=== PATIENT | female | born 1990 | race Caucasian/White ===

== ENCOUNTER 2017-10-26 17:30 | Emergency (ER) | payer MEDICAID, SELFPAY ==
[2017-10-26 17:32] VITALS: BP 113/64; PULSE 103; RESP 18; TEMP 37.1; O2SAT 98; BMI 22.3
--- NOTE | 2017-10-26 18:24 | ED.VISSUMM ---
- ER Visit Summary Date of Service: 10/26/17 Chief Complaint: Abdominal pain and fever History of Present Illness: The patient is a 26 F who is 4 days status post laparoscopic bilateral salpingectomy who presents for fever and abdominal pain since yesterday. Patient states she has had diffuse abdominal pain, worse in the suprapubic and left lower quadrant. She has had fever up to 101, chills and sweats, blurred vision, and decreased urine output. She denies any vaginal discharge. She has not had a bowel movement since her surgery. She states she is taking Motrin for pain and fever. She has history of asthma but denies any other medical problems. She denies any recent . Patient uses tobacco. Physical Examination: Vital signs: afebrile, hemodynamically stable, no hypoxia on room air General: well nourished, well developed, in no distress Skin: warm, dry, no rash, no pallor HEENT: normocephalic and atraumatic; PERRL, EOMI, moist mucous membranes Cardiovascular: Tachycardic rate 103 and rhythm without murmurs, no peripheral edema, 2+ pulses all distal extremities Respiratory: No increased work of breathing, lungs are clear to auscultation bilaterally, no rales, rhonchi or wheezing Abdominal: Abdomen is soft, mildly distended, diffuse tenderness to light palpation with hypo-active bowel sounds, no guarding or rebound, no masses, surgical incisions in place with Steri-Strips, no exudate, induration or dehiscence MSK: Moves all extremities, no deformities, normal strength Neuro: Awake and alert, oriented ?4. No facial droop, sensation and motor function intact and symmetric Test Results: Abnormal Lab Results 10/26/17 10/26/17 10/26/17 18:36 18:36 19:25 WBC 6.8 RBC 4.49 Hgb 11.6 L Hct 36.7 L MCV 81.7 MCH 25.8 L MCHC 31.6 L RDW 15.7 H RDW Differential 46.8 H Plt Count 258 MPV 9.8 Immature Gran % (Auto) 0.000 Neut % (Auto) 54.4 Lymph % (Auto) 30.6 Bureau % (Auto) 6.7 Eos % (Auto) 7.9 H Baso % (Auto) 0.4 Absolute Neuts (auto) 3.7 Absolute Lymphs (auto) 2.09 Total Counted Not Reportable Sodium 141 Potassium 3.9 Chloride 105 Carbon Dioxide 28.0 Anion Gap 8 BUN 6 L Creatinine 0.60 Estim Creat Clear Calc 120.54 Est GFR (MDRD) Af Amer 152 Est GFR (MDRD) Non-Af 126 BUN/Creatinine Ratio 10.0 Glucose 83 Calcium 8.6 Total Bilirubin 0.20 AST 15 ALT 26 Alkaline Phosphatase 66 Total Protein 6.9 Albumin 3.6 Globulin 3.3 Albumin/Globulin Ratio 1.1 Lipase 116 Urine Color Yellow Urine Clarity Sl. Cloudy Urine pH 8.0 Ur Specific Walker 1.010 Urine Protein Negative Urine Glucose (UA) Normal Urine Ketones Negative Urine Occult Blood Negative Urine Nitrite Negative Urine Bilirubin Negative Urine Urobilinogen Normal Ur Leukocyte Esterase Negative Urine RBC 0 SEEN Urine WBC 0-5 SEEN Ur Squamous Epith Cells 0-5 SEEN Urine Bacteria RARE Urine Mucus 0 SEEN Emergency Department Course and Treatment: Patient presents with symptoms consistent with a viral syndrome but 4 days after bilateral salpingectomy. Workup was performed for both infectious etiology as well as postsurgical complications. Patient had no leukocytosis. No electrolyte derangements. Urine was negative for infection. Flu was negative. CT of the abdomen and pelvis was performed showing severe constipation. There were normal postsurgical changes with no free air or signs of abscess. Patient was discussed with Dr. Reynolds, who felt that patient's workup was appropriate for being 4 days postop. There were no further concerns related to the surgery. Patient was given a prescription for MiraLAX for her severe constipation. She was also given Zofran for nausea. Because of the finding of severe constipation, patient was instructed that opiates would not be an appropriate pain medication as this will just make the constipation worse, and it may be the source of her abdominal pain today. Patient will continue [id number] pain medications as needed. She was discharged home and is to follow-up with Dr. Swift for regular postop care. Treatment Plan: [] Disposition: [] Impression: Severe constipation, postoperative abdominal pain This note was generated with [employer] dictation software. It may contain incorrect words, spelling, and punctuation that were not noted in review of the chart prior to signing ED Disposition - Plan for ED Patient: Disposition: Home or Assisted Living Chief Complaint: General Illness Instructions: ED Constipation Prescriptions: Ondansetron [Zofran Odt] 4 mg PO Q8H PRN PRN #15 tab PRN Reason: Nausea Polyethylene Glycol 3350 [Miralax] 17 gm PO BID #238 gm Referrals: Ron Cosme MD [STAFF PHYSICIAN] - Digna Estrada MD [Primary Care Provider] - Additional Instructions: Your workup shows severe constipation. Please drink plenty of fluids. You may use the MiraLAX as prescribed to help with constipation. You may use Zofran for nausea. Opiate pain medications will make constipation worse, thus those cannot be prescribed at this time for your postoperative pain. You may continue to use [id number] pain medications as needed for pain. If you have any concerns or worsening of your condition, please come back to the emergency department for another evaluation.
--- NOTE | 2017-10-26 18:27 | ED.DCSUM_ITS ---
- ER Visit Summary Date of Service: 10/26/17 Chief Complaint: Abdominal pain and fever History of Present Illness: The patient is a 26 F who is 4 days status post laparoscopic bilateral salpingectomy who presents for fever and abdominal pain since yesterday. Patient states she has had diffuse abdominal pain, worse in the suprapubic and left lower quadrant. She has had fever up to 101, chills and sweats, blurred vision, and decreased urine output. She denies any vaginal discharge. She has not had a bowel movement since her surgery. She states she is taking Motrin for pain and fever. She has history of asthma but denies any other medical problems. She denies any recent . Patient uses tobacco. Physical Examination: Vital signs: afebrile, hemodynamically stable, no hypoxia on room air General: well nourished, well developed, in no distress Skin: warm, dry, no rash, no pallor HEENT: normocephalic and atraumatic; PERRL, EOMI, moist mucous membranes Cardiovascular: Tachycardic rate 103 and rhythm without murmurs, no peripheral edema, 2+ pulses all distal extremities Respiratory: No increased work of breathing, lungs are clear to auscultation bilaterally, no rales, rhonchi or wheezing Abdominal: Abdomen is soft, mildly distended, diffuse tenderness to light palpation with hypo-active bowel sounds, no guarding or rebound, no masses, surgical incisions in place with Steri-Strips, no exudate, induration or dehiscence MSK: Moves all extremities, no deformities, normal strength Neuro: Awake and alert, oriented ?4. No facial droop, sensation and motor function intact and symmetric Test Results: Abnormal Lab Results 10/26/17 10/26/17 10/26/17 18:36 18:36 19:25 WBC 6.8 RBC 4.49 Hgb 11.6 L Hct 36.7 L MCV 81.7 MCH 25.8 L MCHC 31.6 L RDW 15.7 H RDW Differential 46.8 H Plt Count 258 MPV 9.8 Immature Gran % (Auto) 0.000 Neut % (Auto) 54.4 Lymph % (Auto) 30.6 [place] % (Auto) 6.7 Eos % (Auto) 7.9 H Baso % (Auto) 0.4 Absolute Neuts (auto) 3.7 Absolute Lymphs (auto) 2.09 Total Counted Not Reportable Sodium 141 Potassium 3.9 Chloride 105 Carbon Dioxide 28.0 Anion Gap 8 BUN 6 L Creatinine 0.60 Estim Creat Clear Calc 120.54 Est GFR (MDRD) Af Amer 152 Est GFR (MDRD) Non-Af 126 BUN/Creatinine Ratio 10.0 Glucose 83 Calcium 8.6 Total Bilirubin 0.20 AST 15 ALT 26 Alkaline Phosphatase 66 Total Protein 6.9 Albumin 3.6 Globulin 3.3 Albumin/Globulin Ratio 1.1 Lipase 116 Urine Color Yellow Urine Clarity Sl. Cloudy Urine pH 8.0 Ur Specific [place] 1.010 Urine Protein Negative Urine Glucose (UA) Normal Urine Ketones Negative Urine Occult Blood Negative Urine Nitrite Negative Urine Bilirubin Negative Urine Urobilinogen Normal Ur Leukocyte Esterase Negative Urine RBC 0 SEEN Urine WBC 0-5 SEEN Ur Squamous Epith Cells 0-5 SEEN Urine Bacteria RARE Urine Mucus 0 SEEN Emergency Department Course and Treatment: Patient presents with symptoms consistent with a viral syndrome but 4 days after bilateral salpingectomy. Workup was performed for both infectious etiology as well as postsurgical complications. Patient had no leukocytosis. No electrolyte derangements. Urine was negative for infection. Flu was negative. CT of the abdomen and pelvis was performed showing severe constipation. There were normal postsurgical changes with no free air or signs of abscess. Patient was discussed with Dr. Reynolds, who felt that patient's workup was appropriate for being 4 days postop. There were no further concerns related to the surgery. Patient was given a prescription for MiraLAX for her severe constipation. She was also given Zofran for nausea. Because of the finding of severe constipation , patient was instructed that opiates would not be an appropriate pain medication as this will just make the constipation worse, and it may be the source of her abdominal pain today. Patient will continue [id number] pain medications as needed. She was discharged home and is to follow-up with Dr. Swift for regular postop care. Treatment Plan: [] Disposition: [] Impression: Severe constipation, postoperative abdominal pain This note was generated with [employer] dictation software. It may contain incorrect words, spelling, and punctuation that were not noted in review of the chart prior to signing ED Disposition - Plan for ED Patient: Disposition: Home or Assisted Living Chief Complaint: General Illness Instructions: ED Constipation Prescriptions: Ondansetron [Zofran Odt] 4 mg PO Q8H PRN PRN #15 tab PRN Reason: Nausea Polyethylene Glycol 3350 [Miralax] 17 gm PO BID #238 gm Referrals: Ron Cosme MD [STAFF PHYSICIAN] - Digna Estrada MD [Primary Care Provider] - Additional Instructions: Your workup shows severe constipation. Please drink plenty of fluids. You may use the MiraLAX as prescribed to help with constipation. You may use Zofran for nausea. Opiate pain medications will make constipation worse, thus those cannot be prescribed at this time for your postoperative pain. You may continue to use zxbu-yqn-[id number] pain medications as needed for pain. If you have any concerns or worsening of your condition, please come back to the emergency department for another evaluation.
[2017-10-26] MEDS: Ondansetron 4 MG/2 ML Vial IV (18:38)
[2017-10-26] MEDS: 0.9% Normal Saline 1,000 ML 1000 ML IV (18:39)
[2017-10-26 18:45] LABS: Absolute Lymphocyte Count 2.09 X10^3/ul (0.83-4.51); Absolute Neutrophil Count 3.7 X10^3/uL (2.0-7.7); Basophil# 0.03 X10^3/uL; Basophil% 0.4 % (0-1); Eosinophil# 0.54 X10^3/uL; Eosinophils% 7.9 % (0-5); Hematocrit 36.7 % (37-47); Hemoglobin 11.6 g/dl (12.0-15.0); Lymphocyte # 2.09 X10^3/ul (4.0); Lymphocyte % 30.6 % (19-41); Mean Corp Hgb Conc 31.6 g/gl (32-36); Mean Corpuscular Hgb 25.8 pg (27.0-32.0); Mean Corpuscular Volume 81.7 fL (81-99); Mean Platelet Vol. 9.8 fl (6.2-12.0); Monocyte# 0.46 X10^3/uL; Monocyte% 6.7 % (0-10); Neutrophil # 3.71 X10^3/uL (2.7-7.7); Neutrophil % 54.4 % (47-70); POSITIVE COUNT NO; POSITIVE DIFFERENTIAL NO; POSITIVE MORPHOLOGY NO; Platelet Count 258 K/mm3 (150-450); RBC Distribution Width CV 15.7 % (11.6-14.6); RBC Distribution Width SD 46.8 fl (35.1-43.9); Red Blood Count 4.49 M/mm3 (4.2-5.4); White Blood Count 6.8 K/mm3 (4.4-11.0)
[2017-10-26 19:02] LABS: ALB/GLOB Ratio 1.1 RATIO (0.9-2.4); AST(SGOT) 15 U/L (15-37); Alanine Aminotransfer ALT/SGPT 26 U/L (12-78); Albumin, Serum 3.6 g/dL (3.4-5.0); Alkaline Phosphatase 66 U/L (45-117); Anion Gap 8 (5-15); BUN 6 mg/dL (7-18); Calcium,Total 8.6 mg/dL (8.5-10.1); Chloride 105 mmol/L (98-107); EST Glomerular Filtration Rate 126 mL/min (>60); Est Glom Filt Rate - Afr Amer 152 mL/min (>60); Estimated Creatinine Clearance 120.54 ml/min; Globulin 3.3 g/dL (2.2-4.2); Glucose 83 mg/dL (70-110); Lipase 116 U/L (73-393); Potassium 3.9 mmol/L (3.5-5.1); Protein, Total 6.9 g/dL (6.4-8.2); Sodium Level 141 mmol/L (136-145)
[2017-10-26 19:33] LABS: Mucous, Urine 0 SEEN /hpf (<or=2+); Red Blood Cells-Urine 0 SEEN /hpf (0-5)
[2017-10-26 19:34] LABS: Color, Urine Yellow (Yellow); Glucose, Dipstick Normal (Normal); Ketone-Dipstick Negative (Negative); Leukocyte Esterase-Dipstick Negative /ul (Negative); Nitrite-Dipstick Negative (Negative); Occult Blood-Urine Negative /ul (Negative); Protein-Dipstick Negative (Negative); Urine Bilirubin Dipstick Negative (Negative); Urine Clarity Sl. Cloudy (Clear); Urine Urobilinogen Normal (Normal)
[2017-10-26 19:41] LABS: Bacteria RARE /hpf (None Seen); Squamous Epithelial Cells - UA 0-5 SEEN /hpf (5-10); White Blood Cells 0-5 SEEN /hpf (0-5)
[2017-10-26 19:58] VITALS: BP 121/71; PULSE 64; RESP 16; O2SAT 99
--- NOTE | 2017-10-26 20:36 | CT_ITS ---
STUDY: CT ABDOMEN AND PELVIS WITH CONTRAST REASON FOR EXAM: Female, 26 years old. Postop fever and pain. RADIATION DOSAGE (If Supplied By Facility): CTDIvol = ( 12.12 ) mGy, DLP = ( 361.43 ) mGycm TECHNIQUE: Transaxial images were obtained from the dome of the diaphragm to the symphysis pubis without oral contrast. 100ML ml of Isovue 300 contrast was administered. Sagittal and coronal images were reconstructed. Individualized dose optimization techniques were used for this CT. COMPARISON: None. FINDINGS: The visualized lung bases are clear. The visualized portions of the heart and pericardium are within normal limits. There are no calcified gallstones present. The liver is within normal limits. There are no suspicious hepatic lesions. The spleen is normal in size. The pancreas is within normal limits. The adrenal glands are within normal limits. There are no obstructing renal stones. There is no hydronephrosis. There are no focal renal lesions. Normal visualized stomach. There is no bowel obstruction or inflammation. There is a large amount of stool in the colon, consistent with constipation. The patient is status post appendectomy. The aorta is normal in caliber. There are bilateral adnexal cysts. There is a small amount of pelvic free fluid. There is no free air, fluid collection or lymphadenopathy. There are no destructive osseous lesions. There is subcutaneous stranding with small foci of free air in the lower anterior abdominal wall, consistent with the patient's recent postoperative state. CT/Abdomen/Pelvis W IV Cont ONLY IMPRESSION: Subcutaneous stranding and small foci of free air in the lower anterior abdominal wall, consistent with the patient's recent postoperative state. Small amount of pelvic free fluid. No fluid collection. Bilateral adnexal cysts, likely physiologic. No bowel obstruction or inflammation. Constipation. Electronically Signed: Zach Villegas, at 21:40 EST Tel , Service support ,
[2017-10-26 22:18] VITALS: BP 107/65; PULSE 60; RESP 16; O2SAT 97
--- NOTE | 2017-10-26 22:32 | ED.DEP ---
ED Disposition - Plan for ED Patient: Disposition: Home or Assisted Living Chief Complaint: General Illness Instructions: ED Constipation Prescriptions: Ondansetron [Zofran Odt] 4 mg PO Q8H PRN PRN #15 tab PRN Reason: Nausea Polyethylene Glycol 3350 [Miralax] 17 gm PO BID #238 gm Referrals: Digna Estrada MD [Primary Care Provider] - Ron Cosme MD [STAFF PHYSICIAN] - Additional Instructions: Your workup shows severe constipation. Please drink plenty of fluids. You may use the MiraLAX as prescribed to help with constipation. You may use Zofran for nausea. Opiate pain medications will make constipation worse, thus those cannot be prescribed at this time for your postoperative pain. You may continue to use pegw-zzp-esngenr pain medications as needed for pain. If you have any concerns or worsening of your condition, please come back to the emergency department for another evaluation.
--- NOTE | 2017-10-26 22:36 | DCINST.ED_ITS ---
ED Disposition - Plan for ED Patient: Disposition: Home or Assisted Living Chief Complaint: General Illness Instructions: ED Constipation Prescriptions: Ondansetron [Zofran Odt] 4 mg PO Q8H PRN PRN #15 tab PRN Reason: Nausea Polyethylene Glycol 3350 [Miralax] 17 gm PO BID #238 gm Referrals: Digna Estrada MD [Primary Care Provider] - Ron Cosme MD [STAFF PHYSICIAN] - Additional Instructions: Your workup shows severe constipation. Please drink plenty of fluids. You may use the MiraLAX as prescribed to help with constipation. You may use Zofran for nausea. Opiate pain medications will make constipation worse, thus those cannot be prescribed at this time for your postoperative pain. You may continue to use tcce-qqy-tqjrpuq pain medications as needed for pain. If you have any concerns or worsening of your condition, please come back to the emergency department for another evaluation.
[2017-10-26 22:46] VITALS: BP 107/65; PULSE 60; RESP 16; O2SAT 97
== END 2017-10-26 22:48 | disposition home or self-care (01) ==
PROVIDERS: Emergency Provider Emergency Medicine; Family Provider Internal Medicine; PCP Internal Medicine
DX: K59.00 Constipation, unspecified (principal); R10.9 Unspecified abdominal pain; Z90.722 Acquired absence of ovaries, bilateral; R50.9 Fever, unspecified; H53.8 Other visual disturbances; R39.198 Other difficulties with micturition; R11.10 Vomiting, unspecified; R00.0 Tachycardia, unspecified; J45.909 Unspecified asthma, uncomplicated; Z72.0 Tobacco use
CPT/HCPCS: 74176; 80053; 81001; 83690; 85025; 87040; 87077; 87086; 87088; 87186; 87804; 96361; 96374; 96375; 96376; 99283; J7030; Q9967; A4216; J2405

== ENCOUNTER → 2017-11-05 17:21 | Outpatient (CLI) | payer MEDICAID, SELFPAY ==
[2017-11-05 20:32] LABS: Chlamydia Trachomatis by PCR Negative (Negative); Neisserai gonorrhoeae by PCR Positive (Negative); Probe Check PASS
== END ==
PROVIDERS: Visit Provider Obstetrics & Gynecology
DX: Z11.3 Encounter for screening for infections with a predominantly sexual mode of transmission (principal)
CPT/HCPCS: 87491; 87591

== ENCOUNTER 2018-01-26 18:43 | Emergency (ER) | payer MEDICAID, SELFPAY ==
[2018-01-26 18:44] VITALS: BP 107/70; PULSE 88; RESP 16; TEMP 36.8; O2SAT 99; BMI 22.5
[2018-01-26] MEDS: Ketorolac 30 MG/ML Syringe IV (19:21)
[2018-01-26] MEDS: diazePAM 5 MG Tablet PO (19:22)
--- NOTE | 2018-01-26 20:23 | ED.VISSUMM ---
- ER Visit Summary Date of Service: 01/26/18 Chief Complaint: Neck pain and headache History of Present Illness: The patient is a 27 F who presents with atraumatic neck pain and occipital headache that started 4-5 days ago. She is reluctant to move her head. He states movement of her head causes her pain. She is sitting very still. She denies any paresthesia, anesthesia motors. She denies any cardiac or respiratory symptoms. She denies nausea or vomiting. She has no other complaints please read written note. Review of old records reveal patient has history of recurrent neck and back pain. Furthermore there is a comment made about opiate dependency/abuse. Physical Examination: Patient appears uncomfortable. Vital signs unremarkable. She is reluctant to turn her head to the right or left or flex or extend the neck. She has pain palpation over the paracervical area and trapezius area bilaterally. Head is atraumatic nor cephalic. Pupils equal round reactive. Extra muscles are intact. TMs are normal. Nares patent. Posterior pharynx without erythema XA. Uvula is midline. Trachea is midline. There is no stridor. Heart is regular without murmur, gallop or rub. S1 and S2 are normal. Lungs are clear to auscultation with good movement of air bilaterally. Patient is alert and oriented ?3. Motor is 5 over 5. Sensory is intact. DTRs are symmetric with no clonus or Babinski sign. Cranial 2 through 12 are intact. Cerebellar testing is normal. Test Results: None Emergency Department Course and Treatment: IV was established she received 30 mg of Toradol IV push and 5 mg of Valium p.o. I was informed by her nurse at that she has had no improvement. In light of my record review and the fact that there is been problems with opiates in the past she will get no further medicine. She will be treated with anti-inflammatories and she has no contraindication. Treatment Plan: Prescription for Naprosyn, rest and ice. Disposition: Discharge to home Impression: 1. Torticollis 2. Tension headache This note was generated with [employer] software. It may contain incorrect words, spelling, and punctuation that were not noted in review of the chart prior to signing ED Disposition - Plan for ED Patient: Disposition: Home or Assisted Living Chief Complaint: Headache Instructions: ED Headache Tension, Torticollis (Wry Neck) Prescriptions: Naproxen [Naprosyn] 500 mg PO BID #14 tab Referrals: Digna Estrada MD [Primary Care Provider] - 3-5 Days if not improving
--- NOTE | 2018-01-26 20:28 | ED.DCSUM_ITS ---
- ER Visit Summary Date of Service: 01/26/18 Chief Complaint: Neck pain and headache History of Present Illness: The patient is a 27 F who presents with atraumatic neck pain and occipital headache that started 4-5 days ago. She is reluctant to move her head. He states movement of her head causes her pain. She is sitting very still. She denies any paresthesia, anesthesia motors. She denies any cardiac or respiratory symptoms. She denies nausea or vomiting. She has no other complaints please read written note. Review of old records reveal patient has history of recurrent neck and back pain. Furthermore there is a comment made about opiate dependency/abuse. Physical Examination: Patient appears uncomfortable. Vital signs unremarkable. She is reluctant to turn her head to the right or left or flex or extend the neck. She has pain palpation over the paracervical area and trapezius area bilaterally. Head is atraumatic nor cephalic. Pupils equal round reactive. Extra muscles are intact. TMs are normal. Nares patent. Posterior pharynx without erythema XA. Uvula is midline. Trachea is midline. There is no stridor. Heart is regular without murmur, gallop or rub. S1 and S2 are normal. Lungs are clear to auscultation with good movement of air bilaterally. Patient is alert and oriented ?3. Motor is 5 over 5. Sensory is intact. DTRs are symmetric with no clonus or Babinski sign. Cranial 2 through 12 are intact. Cerebellar testing is normal. Test Results: None Emergency Department Course and Treatment: IV was established she received 30 mg of Toradol IV push and 5 mg of Valium p.o. I was informed by her nurse at that she has had no improvement. In light of my record review and the fact that there is been problems with opiates in the past she will get no further medicine. She will be treated with anti- inflammatories and she has no contraindication. Treatment Plan: Prescription for Naprosyn, rest and ice. Disposition: Discharge to home Impression: 1. Torticollis 2. Tension headache This note was generated with [employer] software. It may contain incorrect words, spelling, and punctuation that were not noted in review of the chart prior to signing ED Disposition - Plan for ED Patient: Disposition: Home or Assisted Living Chief Complaint: Headache Instructions: ED Headache Tension, Torticollis (Wry Neck) Prescriptions: Naproxen [Naprosyn] 500 mg PO BID #14 tab Referrals: Digna Estrada MD [Primary Care Provider] - 3-5 Days if not improving
[2018-01-26 20:41] VITALS: PULSE 82; RESP 14; O2SAT 99
== END 2018-01-26 20:43 | disposition home or self-care (01) ==
PROVIDERS: Emergency Provider Emergency Medicine; Family Provider Internal Medicine; PCP Internal Medicine
DX: M43.6 Torticollis (principal); G44.209 Tension-type headache, unspecified, not intractable; Z87.898 Personal history of other specified conditions
CPT/HCPCS: 96374; 99284; A4216

== ENCOUNTER 2018-02-27 22:21 | Emergency (ER) | payer SELFPAY ==
[2018-02-27 22:23] VITALS: BP 118/66; PULSE 83; RESP 16; TEMP 36.6; O2SAT 99; BMI 22.6
--- NOTE | 2018-02-27 22:36 | ED.VISSUMM ---
- ER Visit Summary Date of Service: 02/27/18 Chief Complaint: [Rash] History of Present Illness: The patient is a 27 F [presents with a rash that started 2 days ago. Patient describes it as burning and pruritic involving the upper arms, upper chest, and anterior neck. Patient denies any new detergents although she has used a new soap recently however she has used it on her entire body and the rash is very localized to certain areas. Patient denies recent illness. 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 Patient denies any poison greta or poison oak type exposures. Physical Examination: HEENT-PERRLA, EOMI. Cranial nerves II through XII grossly intact. TMs clear. Mucous membranes moist. No adenopathy. Cardiovascular-regular rate and rhythm without murmur or ectopy Lungs-clear to auscultation, chest wall stable without crepitus or subcu emphysema Abdomen-normoactive bowel sounds, soft, nontender, no rebound or rigidity, no peritoneal signs. Skin-patient has a slightly raised rash involving the upper extremities on the volar surface as well as the upper chest and anterior neck. Rash is typical of a contact dermatitis. Extremities-intact ?4, normal range of motion, normal pulses, atraumatic[] Test Results: [None indicated Emergency Department Course and Treatment: [Patient was started on prednisone] Treatment Plan: ] Patient will be started on prednisone and advised to follow-up with stockroom worker in 5-7 days if rash does not improve. Disposition: [Discharged to home in stable condition Impression]; contact dermatitis This note was generated with [employer] dictation software. It may contain incorrect words, spelling, and punctuation that were not noted in review of the chart prior to signing ED Disposition - Plan for ED Patient: Chief Complaint: Rash Referrals: Digna Estrada MD [Primary Care Provider] -
[2018-02-27] MEDS: predniSONE 20 MG Tablet 60 MG PO (22:38)
--- NOTE | 2018-02-27 22:40 | ED.DCSUM_ITS ---
- ER Visit Summary Date of Service: 02/27/18 Chief Complaint: [Rash] History of Present Illness: The patient is a 27 F [presents with a rash that started 2 days ago. Patient describes it as burning and pruritic involving the upper arms, upper chest, and anterior neck. Patient denies any new detergents although she has used a new soap recently however she has used it on her entire body and the rash is very localized to certain areas. Patient denies recent illness. 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 Patient denies any poison greta or poison oak type exposures. Physical Examination: HEENT-PERRLA, EOMI. Cranial nerves II through XII grossly intact. TMs clear. Mucous membranes moist. No adenopathy. Cardiovascular-regular rate and rhythm without murmur or ectopy Lungs-clear to auscultation, chest wall stable without crepitus or subcu emphysema Abdomen-normoactive bowel sounds, soft, nontender, no rebound or rigidity, no peritoneal signs. Skin-patient has a slightly raised rash involving the upper extremities on the volar surface as well as the upper chest and anterior neck. Rash is typical of a contact dermatitis. Extremities-intact ?4, normal range of motion, normal pulses, atraumatic[] Test Results: [None indicated Emergency Department Course and Treatment: [Patient was started on prednisone] Treatment Plan: ] Patient will be started on prednisone and advised to follow- up with statistical typist in 5-7 days if rash does not improve. Disposition: [Discharged to home in stable condition Impression]; contact dermatitis This note was generated with [employer] dictation software. It may contain incorrect words, spelling, and punctuation that were not noted in review of the chart prior to signing ED Disposition - Plan for ED Patient: Chief Complaint: Rash Referrals: Digna Estrada MD [Primary Care Provider] -
--- NOTE | 2018-02-27 22:40 | ED.DEP ---
ED Disposition - Plan for ED Patient: Chief Complaint: Rash Instructions: ED Dermatitis Contact Prescriptions: Prednisone [Deltasone] 20 mg PO BID #10 tab Referrals: Digna Estrada MD [Primary Care Provider] - Salinas Heaton MD [STAFF PHYSICIAN] - 5-7 Days
[2018-02-27 22:44] VITALS: RESP 16
--- NOTE | 2018-02-27 22:45 | ED.RN ---
REVIEWED D/C INSTRUCTIONS, FOLLOW UP CARE, PRESCRIPTION, AND S/S THAT WOULD WARRANT A RETURN TO THE ED WITH PT. PT VERBALIZED AN UNDERSTANDING AND DENIES FURTHER QUESTIONS FOR THIS RN. PT SKIN P/W/D, RESP EVEN AND UNLABORED, PT A&O X 3, NO DISTRESS NOTED. PT AMBULATED OUT OF ED, GAIT STEADY.
== END 2018-02-27 22:46 | disposition home or self-care (01) ==
LOC: ED 22:42
PROVIDERS: Emergency Provider Emergency Medicine; Family Provider Internal Medicine; PCP Internal Medicine
DX: L25.9 Unspecified contact dermatitis, unspecified cause (principal); Z72.0 Tobacco use
CPT/HCPCS: 99283

== ENCOUNTER → 2018-03-07 15:32 | Outpatient (CLI) | payer SELFPAY ==
--- NOTE | 2018-03-07 15:32 | DT_ITS ---
This patient was seen during an EMR downtime March 03, 2018 - March 10, 2018. This patient may have a combination of paper and electronic documentation or all paper documentation. All documentation is viewable within the e-chart portion of [email or web address] for each patient visit.
[2018-03-08 11:07] LABS: Chlamydia Trachomatis by PCR Negative (Negative); Neisserai gonorrhoeae by PCR Negative (Negative); Probe Check PASS; Sample Adequacy Control PASS; Specimen Processing Control PASS
[2018-03-10 10:08] LABS: HIV - WCH Non-Reactive (Nonreactive)
[2018-03-14 03:47] LABS: Rapid Plasmin Reagin (RPR) NONREACTIVE (NONREACTIVE)
[2018-03-14 07:14] LABS: HEPATITIS B SURFACE AG Negative (Negative); Hep C Antibodies 0.1 s/co ratio (0.0-0.9)
== END ==
PROVIDERS: Visit Provider Obstetrics & Gynecology
DX: Z11.3 Encounter for screening for infections with a predominantly sexual mode of transmission (principal)
CPT/HCPCS: 86592; 86703; 86803; 87340; 87491; 87591

== ENCOUNTER → 2018-07-15 14:34 | Outpatient (CLI) | payer SELFPAY ==
[2018-07-15 16:07] LABS: Hemoglobin A1c 5.3 % (4.2-6.3)
[2018-07-15 16:29] LABS: HIV - WCH Non-Reactive (Nonreactive)
[2018-07-15 17:20] LABS: Chlamydia Trachomatis by PCR Negative (Negative); Neisserai gonorrhoeae by PCR Negative (Negative); Probe Check PASS; Sample Adequacy Control PASS; Specimen Processing Control PASS
[2018-07-15 19:08] LABS: Follicle Stimulating Hormone 3.7 mIU/mL; Free T3 2.6 pg/mL (2.18-3.98); Luteinizing Hormone 15.5 mIU/mL; T4 Free Direct 0.95 ng/dL (0.76-1.46); Thyroid Stim Hormone (TSH) 1.56 uIU/mL (0.358-3.74)
[2018-07-17 10:30] LABS: HEPATITIS B SURFACE AG Negative (Negative); Hep C Antibodies <0.1 s/co ratio (0.0-0.9)
[2018-07-18 05:27] LABS: Rapid Plasmin Reagin (RPR) NONREACTIVE (NONREACTIVE)
== END ==
PROVIDERS: Visit Provider Obstetrics & Gynecology
DX: N92.6 Irregular menstruation, unspecified (principal); Z11.3 Encounter for screening for infections with a predominantly sexual mode of transmission
CPT/HCPCS: 36415; 83001; 83002; 83036; 84146; 84439; 84443; 84481; 86592; 86703; 86803; 87340; 87491; 87591

== ENCOUNTER 2018-08-14 19:17 | Emergency (ER) | payer MEDICAID, SELFPAY ==
[2018-08-14 19:18] VITALS: BP 126/74; PULSE 84; RESP 14; TEMP 36.5; O2SAT 97; BMI 21.4
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
[2018-08-14] MEDS: Orphenadrine 60 MG/2 ML Ampul IM (19:55)
--- NOTE | 2018-08-14 20:00 | RAD_ITS ---
STUDY: X-RAY - CERVICAL SPINE REASON FOR EXAM: Female, 27 years old. Neck popping during sex. TECHNIQUE: 3 view(s) of the cervical spine were obtained. COMPARISON: None FINDINGS: Normal anterior atlantoaxial articulation. Normal odontoid process. There is straightening of the normal cervical lordosis. Normal vertebral bodies and endplates. Normal disc space heights. Normal visualized intervertebral neuroforamina. The soft tissue structures are unremarkable. RAD/Cerv Spine 2 or 3 Views IMPRESSION: Straightening of the usual cervical lordosis. Otherwise normal cervical spine without fracture. Negative for perceivable arthritic or degenerative changes. Electronically Signed: Little Hernandez MD at 20:35 EST , Service support ,
--- NOTE | 2018-08-14 21:36 | ED.RN ---
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 aware.
--- NOTE | 2018-08-14 21:37 | DCINST.ED_ITS ---
ED Disposition - Plan for ED Patient: Disposition: Home or Assisted Living Chief Complaint: Other, Pain/Inj Instructions: ED Sprain Strain Neck Prescriptions: Ibuprofen 600 mg PO Q6H PRN PRN #30 tab PRN Reason: Pain Cyclobenzaprine HCl 5 mg PO Q8H PRN PRN #20 tab PRN Reason: Muscle Spasm Referrals: Digna Estrada MD [Primary Care Provider] - 3-5 Days if not improving Additional Instructions: Use the ibuprofen for pain in the Flexeril as needed for muscle spasms. Apply ice to your neck several times a day for the next 24 hours. After that you may find benefit from a heating pad. Do gentle stretching. If you are not having improvement within a few days, please follow-up with your primary care doctor for another evaluation. If at any time you develop weakness or loss of use of a jayashree or legs, trouble breathing, trouble swallowing, lose control of your bowels or bladder, or if any other concerns, please return immediately to the emergency department for another evaluation.
[2018-08-14] MEDS: Ibuprofen 600 MG Tablet PO (21:46)
[2018-08-14 21:47] VITALS: BP 108/74; PULSE 61; RESP 14; O2SAT 99
== END 2018-08-14 21:48 | disposition home or self-care (01) ==
PROVIDERS: Emergency Provider Emergency Medicine; Family Provider Internal Medicine; PCP Internal Medicine
DX: S13.4XXA Sprain of ligaments of cervical spine, initial encounter (principal); X50.1XXA Overexertion from prolonged static or awkward postures, initial encounter; Y93.9 Activity, unspecified; Y92.9 Unspecified place or not applicable
CPT/HCPCS: 72040; 96372; 99283; J7030

== ENCOUNTER 2018-08-18 15:43 | Emergency (ER) | payer MEDICAID, SELFPAY ==
[2018-08-18 15:45] VITALS: BP 119/78; PULSE 69; RESP 15; TEMP 36.7; O2SAT 99; BMI 21.9
--- NOTE | 2018-08-18 16:01 | ED.VISSUMM ---
- ER Visit Summary Date of Service: 08/18/18 Chief Complaint: Dysuria, pelvic pain History of Present Illness: The patient is a 27 F who reports swollen labia and pain with urination for the past 2 days after intercourse. Patient denies unusual discharge or concern for STD. Patient believes she has abrasions to the labia that may be infected. Patient has had prior tubal ligation and states that her tubes were completely removed. Menstrual cycle was late June. Physical Examination: Vital signs unremarkable. Patient sitting upright in bed no acute distress. Heart is regular rate and rhythm. No lung sounds are clear. Abdomen is soft and nontender. examination reveals skin abrasions and almost a mild skin avulsion on the medial labia minora. There is no discharge. No blisters noted. Test Results: Urinalysis does show sign of infection with 10-25 white cells only 5-10 epithelials. 2+ bacteria is noted. Emergency Department Course and Treatment: Patient be treated with 3 days of Bactrim and then will also be given 10 days of Keflex for more prolonged skin coverage. She will be given a dose of flu can for yeast infection as patient states she gets these frequently with antibiotics. Treatment Plan: [] Disposition: Discharge Impression: 1. Cystitis 2. Mild cellulitis This note was generated with [employer] dictation software. It may contain incorrect words, spelling, and punctuation that were not noted in review of the chart prior to signing ED Disposition - Plan for ED Patient: Chief Complaint: Other, Pain/Inj Referrals: Digna Estrada MD [Primary Care Provider] -
[2018-08-18 16:31] LABS: Color, Urine Yellow (Yellow); Glucose, Dipstick Normal (Normal); Ketone-Dipstick 5 mg/dl (Negative); Leukocyte Esterase-Dipstick 500 /ul (Negative); Nitrite-Dipstick Negative (Negative); Occult Blood-Urine Negative /ul (Negative); Protein-Dipstick 15 mg/dl (Negative); Specific Gravity, Urine 1.015 (1.002-1.030); Urine Bilirubin Dipstick Negative (Negative); Urine Clarity Sl. Cloudy (Clear); Urine Urobilinogen Normal (Normal); Urine pH 6.5 (5.0 - 8.0)
[2018-08-18 16:39] LABS: Bacteria 2+ /hpf (None Seen); Mucous, Urine 3+ /hpf (<or=2+); Red Blood Cells-Urine 0-5 SEEN /hpf (0-5); Squamous Epithelial Cells - UA 5-10 SEEN /hpf (5-10); White Blood Cells 10-25 SEEN /hpf (0-5)
--- NOTE | 2018-08-18 16:45 | ED.DEP ---
ED Disposition - Plan for ED Patient: Disposition: Home or Assisted Living Chief Complaint: Other, Pain/Inj Instructions: ED UTI Cystitis Female Prescriptions: Cephalexin [Keflex] 500 mg PO Q6 #40 capsule Fluconazole [Diflucan] 150 mg PO X1 #1 tablet Smz/Tmp Ds [Bactrim Ds] 1 tablet PO BID #6 tablet Referrals: Digna Estrada MD [Primary Care Provider] - 1 Week if not improving
[2018-08-18] MEDS: Smz/Tmp Ds Tablet 1 TABLET PO (16:55)
[2018-08-18] MEDS: Cephalexin 250 MG Capsule 500 MG PO (16:55)
== END 2018-08-18 16:56 | disposition home or self-care (01) ==
PROVIDERS: Emergency Provider Emergency Medicine; Family Provider Internal Medicine; PCP Internal Medicine
DX: N30.90 Cystitis, unspecified without hematuria (principal); N76.2 Acute vulvitis; S30.814A Abrasion of vagina and vulva, initial encounter; X58.XXXA Exposure to other specified factors, initial encounter; Y93.9 Activity, unspecified; Y92.9 Unspecified place or not applicable; G43.909 Migraine, unspecified, not intractable, without status migrainosus; Z72.0 Tobacco use
CPT/HCPCS: 81001; 99283

== ENCOUNTER 2018-08-19 16:37 | Emergency (ER) | payer MEDICAID, SELFPAY ==
[2018-08-18 15:45] VITALS: BMI 21.9
[2018-08-19 16:38] VITALS: BP 131/74; PULSE 99; RESP 16; TEMP 36.6; O2SAT 98; BMI 22.1
--- NOTE | 2018-08-19 17:55 | ED.DCSUM_ITS ---
- ER Visit Summary Date of Service: 08/19/18 Chief Complaint: Vaginal discharge History of Present Illness: The patient is a 27 F presents with vaginal discharge. Patient states this started today. She was seen in the ED yesterday for similar complaints without vaginal discharge and treated for UTI. She was started on Bactrim and Keflex for skin irritation along with UTI. She denies abdominal pain. Denies nausea vomiting. She is requesting testing for STDs. She denies fever or other complaints. Physical Examination: Vitals are stable. Patient is afebrile. Alert no acute distress. HEENT exam is unremarkable. Neck is supple. Lungs are clear and equal bilaterally. Heart is regular rate and rhythm. Abdomen is soft nontender nondistended. : Multiple ulcerated lesions Extremities are unremarkable. Skin is warm and dry. No focal neurologic deficit. Remainder of exam is unremarkable. Emergency Department Course and Treatment: GC chlamydia cultures were sent and were negative. Patient initially declined pelvic exam. External exam was performed. She has multiple ulcerated lesions consistent with herpes. HSV culture was sent. She was started on acyclovir. 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 Advised return to ED if worsening complaints. Disposition: Discharge home Impression: Vaginal discharge, suspect HSV This note was generated with [employer] dictation software. It may contain incorrect words, spelling, and punctuation that were not noted in review of the chart prior to signing ED Disposition - Plan for ED Patient: Disposition: Home or Assisted Living Chief Complaint: Female C/O Instructions: Herpes: Caring for Sores Prescriptions: Acyclovir 200 mg PO 5X/DAY #50 capsule Referrals: Digna Estrada MD [Primary Care Provider] - Ron Cosme MD [STAFF PHYSICIAN] -
[2018-08-19 19:42] LABS: Chlamydia Trachomatis by PCR Negative (Negative); Neisserai gonorrhoeae by PCR Negative (Negative); Probe Check PASS; Sample Adequacy Control PASS; Specimen Processing Control PASS
--- NOTE | 2018-08-19 20:31 | ED.DEP ---
ED Disposition - Plan for ED Patient: Chief Complaint: Female C/O Instructions: Herpes: Caring for Sores Prescriptions: Acyclovir 200 mg PO 5X/DAY #50 capsule Referrals: Digna Estrada MD [Primary Care Provider] - Ron Cosme MD [STAFF PHYSICIAN] -
[2018-08-19] MEDS: Acyclovir 200 MG Capsule PO (20:38)
[2018-08-19 20:39] VITALS: PULSE 90; RESP 16; O2SAT 100
[2018-08-25 16:07] LABS: HSV Culture Without Typing Positive (.)
[2018-09-09 13:24] LABS: HSV Result 1 NEGATIVE
== END 2018-08-19 20:39 | disposition home or self-care (01) ==
LOC: ED 17:46
PROVIDERS: Emergency Provider Emergency Medicine; Family Provider Internal Medicine; PCP Internal Medicine
DX: N89.8 Other specified noninflammatory disorders of vagina (principal); L98.9 Disorder of the skin and subcutaneous tissue, unspecified; Z72.0 Tobacco use
CPT/HCPCS: 87255; 87491; 87591; 99283

== ENCOUNTER → 2018-08-20 13:40 | Outpatient (CLI) | payer MEDICAID, SELFPAY ==
[2018-08-19 16:38] VITALS: BMI 22.1
[2018-08-25 15:42] LABS: HSV Culture Without Typing Positive (.)
== END ==
PROVIDERS: Family Provider Internal Medicine; PCP Internal Medicine; Visit Provider Obstetrics & Gynecology
DX: Z11.3 Encounter for screening for infections with a predominantly sexual mode of transmission (principal)
CPT/HCPCS: 87255

== ENCOUNTER 2018-08-22 00:30 | Emergency (ER) | payer MEDICAID, SELFPAY ==
[2018-08-22 00:30] VITALS: BP 122/79; PULSE 92; RESP 20; TEMP 36.9; O2SAT 97; BMI 22.3
[2018-08-22 01:25] VITALS: RESP 16; BMI 21.9
--- NOTE | 2018-08-22 02:17 | ED.VISSUMM ---
- ER Visit Summary Date of Service: 08/22/18 Chief Complaint: medication refill History of Present Illness: The patient is a 27 F with a diagnosis of genital herpes 2 days ago who presents for medication refill after running out of her topical 4% lidocaine ointment. Patient was seen for a genital rash in the emergency department 2 days ago, with diagnosis of genital herpes and lab work pending. She followed up with her buyer broker, Dr. Cosme, who agreed it appeared consistent with herpes and started her on oral Valtrex as well as the topical lidocaine ointment. Patient has refills available but was unable to get it filled today because of the holiday. She will get a refill tomorrow, but is seeking relief in the meantime. She has no new complaints but does complain of severe genital pain, dysuria, fever and sweats. Physical Examination: Patient is afebrile and hemodynamically stable. Well-nourished well-developed sitting in bed in no distress. Patient declined a genital exam. Patient is tearful. No focal neuro deficits. Test Results: [] Emergency Department Course and Treatment: Patient presents with request for lidocaine ointment to treat her genital herpes until she can get a refill of her medication tomorrow. She has no new concerns other than being out of her medication and seeking pain relief. Patient declined an examination. She was given 4% topical lidocaine in the emergency department and will fill her a refill tomorrow for the lidocaine ointment. Patient was discharged home. Treatment Plan: [] Disposition: [] Impression: Medication refill, subsequent encounter for genital herpes This note was generated with [employer] dictation software. It may contain incorrect words, spelling, and punctuation that were not noted in review of the chart prior to signing ED Disposition - Plan for ED Patient: Chief Complaint: Med Refill Referrals: Digna Estrada MD [Primary Care Provider] -
[2018-08-22] MEDS: Lidocaine 4% 50 ML Bottle TOPICAL (02:25)
--- NOTE | 2018-08-22 02:39 | ED.DEP ---
ED Disposition - Plan for ED Patient: Disposition: Home or Assisted Living Chief Complaint: Med Refill Instructions: Med Refill Referrals: Digna Estrada MD [Primary Care Provider] - Ron Cosme MD [STAFF PHYSICIAN] - As Needed Additional Instructions: Please get a refill of your lidocaine medication tomorrow. In the meantime you may use the lidocaine gel and apply it with gauze or a cotton ball to the affected areas. If you have any worsening of your condition or any new concerning symptoms, please return immediately to the emergency department for another evaluation.
[2018-08-22 02:44] VITALS: BP 111/72; PULSE 79; RESP 16; O2SAT 97
== END 2018-08-22 02:44 | disposition home or self-care (01) ==
PROVIDERS: Emergency Provider Emergency Medicine; Family Provider Internal Medicine; PCP Internal Medicine
DX: Z76.0 Encounter for issue of repeat prescription (principal); A60.00 Herpesviral infection of urogenital system, unspecified; R50.9 Fever, unspecified
CPT/HCPCS: 99283

== ENCOUNTER → 2018-11-13 11:06 | Outpatient (CLI) | payer MEDICAID, SELFPAY ==
[2018-11-13 13:57] LABS: Chlamydia Trachomatis by PCR Negative (Negative); Neisserai gonorrhoeae by PCR Negative (Negative); Probe Check PASS; Sample Adequacy Control PASS; Specimen Processing Control PASS
== END ==
PROVIDERS: Family Provider Internal Medicine; PCP Internal Medicine; Visit Provider Obstetrics & Gynecology
DX: Z11.3 Encounter for screening for infections with a predominantly sexual mode of transmission (principal)
CPT/HCPCS: 87491; 87591

== ENCOUNTER → 2019-02-03 | Outpatient (CLI) | payer MEDICAID, SELFPAY ==
[2019-02-03 17:35] LABS: Chlamydia Trachomatis by PCR Negative (Negative); Neisserai gonorrhoeae by PCR Negative (Negative); Probe Check PASS; Sample Adequacy Control PASS; Specimen Processing Control PASS
== END | disposition home or self-care (01) ==
PROVIDERS: Visit Provider Obstetrics & Gynecology
DX: N76.0 Acute vaginitis (principal); Z11.3 Encounter for screening for infections with a predominantly sexual mode of transmission
CPT/HCPCS: 87491; 87591

== ENCOUNTER 2019-02-09 20:53 | Emergency (ER) | payer MEDICAID, SELFPAY ==
[2019-02-09 20:54] VITALS: BP 116/71; PULSE 73; RESP 16; TEMP 36.8; O2SAT 98; BMI 22.5
--- NOTE | 2019-02-09 22:18 | CT_ITS ---
STUDY: CT BRAIN WITHOUT CONTRAST REASON FOR EXAM: Female, 28 years old. Headache. RADIATION DOSAGE (If Supplied By Facility): CTDIvol = ( 44.99 ) mGy, DLP = ( 745.49 ) mGycm TECHNIQUE: Transaxial CT imaging of the brain was performed without administration of intravenous contrast material. Individualized dose optimization techniques were used for this CT. COMPARISON: No relevant priors. FINDINGS: Normal soft tissue structures. Normal calvarium. Normal size ventricles and extra-axial spaces for the patient's age. Normal white matter tracts of the cerebral hemispheres. Normal basal ganglia and thalami. Normal brainstem. Normal cerebellum. There is no intracranial hemorrhage. There are no findings of an acute ischemic infarction. Normal visualized paranasal sinuses. CT/Brain/Head without Contrast IMPRESSION: Normal unenhanced CT scan of the brain. Electronically Signed: Rio Powers DO at 23:39 EDT Tel [phone], Service support ,
--- NOTE | 2019-02-09 22:21 | ED.VISSUMM ---
- ER Visit Summary Date of Service: 02/09/19 Chief Complaint: Headache History of Present Illness: The patient is a 28 F presenting with headache. Patient states this started yesterday. It was gradual in onset. It is similar to previous migraines but more severe than usual. She has photophobia and nausea. She denies fever. Denies neck pain. She has had no recent trauma. She denies other complaints. Physical Examination: Vitals are stable. Patient is afebrile. Alert no acute distress. HEENT exam is unremarkable. Neck is supple. No meningismus Lungs are clear and equal bilaterally. Heart is regular rate and rhythm. Abdomen is soft nontender nondistended. Extremities are unremarkable. Skin is warm and dry. No focal neurologic deficit. Remainder of exam is unremarkable. Emergency Department Course and Treatment: Patient was ordered IV Compazine and Benadryl. She declined IV medications. CT head was obtained and shows normal unenhanced CT scan of the brain. Patient eloped from the emergency department prior to her results, p.o. medications, or discharge instructions. Disposition: Elopement Impression: Headache This note was generated with [employer] dictation software. It may contain incorrect words, spelling, and punctuation that were not noted in review of the chart prior to signing ED Disposition - Plan for ED Patient: Referrals: Digna Estrada MD [Primary Care Provider] -
--- NOTE | 2019-02-09 23:12 | ED.RN ---
ONE IV ATTEMPT MADE AND UNSUCCESSFUL, PT REFUSED ANY MORE IV STARTS AND REQUESTED PO MEDICATIONS. DR. DAYLIN FU INFORMED OF SAME. NO NEW ORDERS AT THIS TIME.
[2019-02-09 23:17] VITALS: BP 101/66; PULSE 61; RESP 16; O2SAT 99
--- NOTE | 2019-02-09 23:42 | ED.RN ---
PT LEFT [facility] I'M LEAVING BECAUSE I'M HAVING A TEST DONE IN [place] TOMORROW MORNING FOR MY MIGRAINES PT REFUSED TO STAY AND WAIT FOR CT RESULTS.
== END 2019-02-10 00:24 | disposition home or self-care (01) ==
LOC: ED 22:26
PROVIDERS: Emergency Provider Emergency Medicine; Family Provider Internal Medicine; PCP Internal Medicine
DX: R51 Headache (principal); Z53.21 Procedure and treatment not carried out due to patient leaving prior to being seen by health care provider; H53.149 Visual discomfort, unspecified; R11.0 Nausea; Z72.0 Tobacco use
CPT/HCPCS: 70450; 99282; A4216

== ENCOUNTER 2019-03-27 02:23 | Emergency (ER) | payer MEDICAID, SELFPAY ==
[2019-03-27 02:25] VITALS: BP 114/75; PULSE 63; RESP 18; TEMP 36.8; O2SAT 98; BMI 23.6
--- NOTE | 2019-03-27 02:44 | ED.VISSUMM ---
- ER Visit Summary Date of Service: 03/27/19 Chief Complaint: Abdominal pain History of Present Illness: The patient is a 28 F who presents with abdominal pain. This been going on for about 3 weeks. She complains of right upper quadrant abdominal pain which radiates through to the back. She also reports nausea and vomiting today with one episode of emesis. She has had dark urine and odor concern for possible UTI. She thought she may have some blood in urine today. She did see her primary care physician recently and had a normal urinalysis. She states she is not sexually active. Patient has had prior appendectomy and tubal ligation Physical Examination: Afebrile vitals are normal Moist mucous membranes Heart regular rate and rhythm Lungs are clear Abdomen soft nondistended she does have right upper quadrant abdominal tenderness without guarding without rebound Test Results: CBC CMP lipase normal. Urinalysis normal. Emergency Department Course and Treatment: Patient was treated with IV Toradol and Zofran. She continues to have some pain on reevaluation but this is been going on for 3 weeks she does not have a surgical abdomen. Her abdomen is soft. Possible causes were discussed including biliary colic. There is no indication for an emergent ultrasound. I am not concerned for process such as acute cholecystitis or biliary obstruction. I advised that she follow-up as an outpatient for further outpatient work-up. She understands to return for new or worsening symptoms. Treatment Plan: [] Disposition: Discharge Impression: Abdominal pain This note was generated with [employer] dictation software. It may contain incorrect words, spelling, and punctuation that were not noted in review of the chart prior to signing ED Disposition - Plan for ED Patient: Referrals: Digna Estrada MD [Primary Care Provider] -
[2019-03-27 02:49] LABS: Red Blood Cells-Urine 0 SEEN /hpf (0-5)
[2019-03-27 02:50] LABS: Color, Urine Yellow (Yellow); Glucose, Dipstick Normal (Normal); Ketone-Dipstick 5 mg/dl (Negative); Leukocyte Esterase-Dipstick 25 /ul (Negative); Nitrite-Dipstick Negative (Negative); Occult Blood-Urine Negative /ul (Negative); Protein-Dipstick 15 mg/dl (Negative); Urine Bilirubin Dipstick Negative (Negative); Urine Clarity Sl. Cloudy (Clear); Urine Urobilinogen Normal (Normal)
[2019-03-27 02:55] LABS: Absolute Lymphocyte Count 3.29 X10^3/ul (0.83-4.51); Absolute Neutrophil Count 4.1 X10^3/uL (2.0-7.7); Basophil# 0.02 X10^3/uL; Basophil% 0.2 % (0-1); Eosinophil# 0.23 X10^3/uL; Eosinophils% 2.8 % (0-5); Hematocrit 36.2 % (37-47); Hemoglobin 12.3 g/dl (12.0-15.0); Lymphocyte # 3.29 X10^3/ul (4.0); Lymphocyte % 40.4 % (19-41); Mean Corpuscular Hgb 29.6 pg (27.0-32.0); Mean Corpuscular Volume 87.2 fL (81-99); Mean Platelet Vol. 9.8 fl (6.2-12.0); Monocyte# 0.52 X10^3/uL; Monocyte% 6.4 % (0-10); Neutrophil # 4.08 X10^3/uL (2.7-7.7); Neutrophil % 50.1 % (47-70); Platelet Count 183 K/mm3 (150-450); RBC Distribution Width CV 13.7 % (11.6-14.6); RBC Distribution Width SD 42.3 fl (35.1-43.9); Red Blood Count 4.15 M/mm3 (4.2-5.4); White Blood Count 8.2 K/mm3 (4.4-11.0)
[2019-03-27 02:56] LABS: POSITIVE COUNT NO; POSITIVE DIFFERENTIAL NO; POSITIVE MORPHOLOGY NO
[2019-03-27 02:56] LABS: Bacteria RARE /hpf (None Seen); Mucous, Urine 2+ /hpf (<or=2+); Squamous Epithelial Cells - UA 0-5 SEEN /hpf (5-10)
[2019-03-27 02:57] LABS: White Blood Cells 0-5 SEEN /hpf (0-5)
[2019-03-27] MEDS: Ketorolac 60 MG/2 ML Vial 30 MG IM (02:58)
[2019-03-27] MEDS: Ondansetron 4 MG/2 ML Vial IV (02:58)
[2019-03-27 03:12] LABS: ALB/GLOB Ratio 1.4 RATIO (0.9-2.4); AST(SGOT) 13 U/L (15-37); Alanine Aminotransfer ALT/SGPT 16 U/L (13-56); Albumin, Serum 3.8 g/dL (3.2-5.0); Alkaline Phosphatase 55 U/L (45-117); Anion Gap 4 (5-15); BUN 14 mg/dL (7-18); BUN/Creat Ratio 17.1 RATIO (10-20); Calcium,Total 8.5 mg/dL (8.5-10.1); Chloride 110 mmol/L (98-107); Creatinine, Serum 0.82 mg/dL (0.55-1.02); EST Glomerular Filtration Rate 87 mL/min (>60); Est Glom Filt Rate - Afr Amer 105 mL/min (>60); Estimated Creatinine Clearance 86.63 ml/min; Globulin 2.8 g/dL (2.2-4.2); Glucose 87 mg/dL (74-106); Lipase 92 U/L (73-393); Potassium 3.5 mmol/L (3.5-5.1); Protein, Total 6.6 g/dL (6.4-8.2); Sodium Level 140 mmol/L (136-145)
--- NOTE | 2019-03-27 03:19 | ED.DEP ---
ED Disposition - Plan for ED Patient: Instructions: ABDOMINAL PAIN, Unknown Cause, (Female) Referrals: Digna Estrada MD [Primary Care Provider] -
[2019-03-27 03:26] VITALS: BP 111/60; PULSE 72; RESP 18; O2SAT 96
== END 2019-03-27 03:26 | disposition home or self-care (01) ==
PROVIDERS: Emergency Provider Emergency Medicine; Family Provider Internal Medicine; PCP Internal Medicine
DX: R10.11 Right upper quadrant pain (principal); R11.2 Nausea with vomiting, unspecified; R82.90 Unspecified abnormal findings in urine; Z72.0 Tobacco use
CPT/HCPCS: 80053; 81001; 83690; 85025; 96372; 96374; 99283; A4216; J2405

== ENCOUNTER 2019-04-10 14:49 | Emergency (ER) | payer MEDICAID, SELFPAY ==
[2019-04-10 14:50] VITALS: BP 112/70; PULSE 78; RESP 16; TEMP 36.4; O2SAT 99; BMI 22.1
--- NOTE | 2019-04-10 15:08 | US_ITS ---
STUDY: ABDOMINAL ULTRASOUND - RIGHT UPPER QUADRANT REASON FOR VISIT: Female, 28 years old. Abdomen pain right side TECHNIQUE: Ultrasound evaluation of the right upper quadrant was performed with real-time and static hurtado-scale imaging. TECHNICAL QUALITY: Adequate. COMPARISON: October 26, 2017 CT scan abdomen FINDINGS: Liver: The liver measures 16.6 cm. There is increased echogenicity consistent with fatty infiltration. The bile ducts are within normal limits. There is hepatic color flow. The direction of portal flow is hepatopetal. There is no demonstrated mass lesion. Gallbladder: Normal distended gallbladder. The gallbladder wall measures 2 mm. There is a negative sonographic Jc's sign. There is no pericholecystic fluid. There are no gallstones. Common Bile Duct (C.B.D.): The common bile duct measures 2 mm. Pancreas: Normal size of the head, body and tail of the pancreas. There is normal echogenicity of the pancreas. There is no demonstrated pancreatic mass or cyst. Right Kidney: Normal size of the right kidney. The right kidney measures 10.8 x 4.9 x 3.3 cm. Normal renal cortex. The right cortex measures 1.1 cm. There is no demonstrated renal mass or cyst. There is no right hydronephrosis. US/Gallbladder IMPRESSION: Hepatic steatosis. No cholelithiasis or ultrasound evidence of cholecystitis. Electronically Signed: Shawanda Genao MD at 16:10 EDT Tel , Service support ,
--- NOTE | 2019-04-10 15:16 | ED.DCSUM_ITS ---
- ER Visit Summary Date of Service: 04/10/19 Chief Complaint: [Abdominal pain] History of Present Illness: The patient is a 28 F presents the emergency department with abdominal pain that she tells me started 2 weeks ago however she was seen 2 weeks ago in this ER for abdominal pain that started 3 weeks prior to that. Patient saw her primary care physician's nurse practitioner today and was referred to the ER for an ultrasound. Patient complains of pain in the epigastric region and right upper quadrant that radiates to her back at times. Patient states the pain is made worse by eating. Patient also states she has had intermittent fevers all the way up to 103. She denies any vomiting although she has had nausea. Patient has history of prior appendectomy as well as C- section. Patient is currently on her menstrual period. Patient denies any urinary symptoms. Denies blood in her stool or black tarry stool.] Physical Examination: [HEENT-PERRLA, EOMI. Cranial nerves II through XII grossly intact. TMs clear. Mucous membranes moist. No adenopathy. Cardiovascular-regular rate and rhythm without murmur or ectopy Lungs-clear to auscultation, chest wall stable without crepitus or subcu emphysema Abdomen-normoactive bowel sounds, soft. Patient has tenderness to palpation over the epigastric region as well as the right upper quadrant with some guarding. There is no rebound, rigidity, or perineal signs. Extremities-intact ?4, normal range of motion, normal pulses, atraumatic] Test Results: [CBC with differential was normal. Chemistries were normal. Liver enzymes were normal. Gallbladder ultrasound was normal. CT flank showed small right ovarian cyst otherwise nothing acute.] Emergency Department Course and Treatment: [Patient was not given anything for pain in the emergency department and she states that her pain is significantly improved now that she has been laying flat. Patient already on Prilosec. Patient will be referred to general surgery for follow-up.] Treatment Plan: [Follow up with general surgery as if her symptoms persist she may require possible EGD to evaluate further] Disposition: [Discharged home in stable condition] Impression: [Abdominal pain-etiology uncertain] This note was generated with [employer] software. It may contain incorrect words, spelling, and punctuation that were not noted in review of the chart prior to signing ED Disposition - Plan for ED Patient: Referrals: Digna Estrada MD [Primary Care Provider] -
[2019-04-10] MEDS: 0.9% Normal Saline 1,000 ML 125 ML IV (15:23)
[2019-04-10 15:30] LABS: Absolute Lymphocyte Count 2.09 X10^3/ul (0.83-4.51); Absolute Neutrophil Count 4.8 X10^3/uL (2.0-7.7); Basophil# 0.02 X10^3/uL; Basophil% 0.3 % (0-1); Eosinophil# 0.14 X10^3/uL; Eosinophils% 1.9 % (0-5); Hemoglobin 12.8 g/dl (12.0-15.0); Lymphocyte # 2.09 X10^3/ul (4.0); Mean Corp Hgb Conc 33.7 g/gl (32-36); Mean Corpuscular Hgb 30.1 pg (27.0-32.0); Mean Corpuscular Volume 89.4 fL (81-99); Mean Platelet Vol. 10.5 fl (6.2-12.0); Monocyte# 0.41 X10^3/uL; Monocyte% 5.5 % (0-10); Neutrophil % 64.2 % (47-70); Platelet Count 200 K/mm3 (150-450); RBC Distribution Width CV 13.9 % (11.6-14.6); RBC Distribution Width SD 45.9 fl (35.1-43.9); Red Blood Count 4.25 M/mm3 (4.2-5.4); White Blood Count 7.5 K/mm3 (4.4-11.0)
[2019-04-10 15:41] LABS: POSITIVE COUNT NO; POSITIVE DIFFERENTIAL NO; POSITIVE MORPHOLOGY NO
--- NOTE | 2019-04-10 16:25 | CT_ITS ---
STUDY: CT ABDOMEN AND PELVIS WITHOUT CONTRAST REASON FOR EXAM: Female, 28 years old. Right upper quadrant pain 3 weeks RADIATION DOSAGE (If Supplied By Facility): CTDIvol = ( 6.13 ) mGy, DLP = ( 265.305 ) mGycm TECHNIQUE: Transaxial images were obtained from the dome of the diaphragm to the symphysis pubis without oral contrast, and without intravenous contrast. Sagittal and coronal images were reconstructed. Individualized dose optimization techniques were used for this CT. COMPARISON: December 12, 2016 CT scan abdomen and pelvis FINDINGS: The visualized lung bases are unremarkable. The visualized portions of the heart are within normal limits. Normal liver. Normal gallbladder and extrahepatic biliary system. Normal spleen. Normal pancreas. Normal bilateral adrenal glands. Normal right kidney. Normal left kidney. Normal visualized stomach. Normal small intestine. Is abundant stool in the colon. This is best seen on image 25 of the coronal views. This is especially seen in the ascending colon. There are surgical clips in the region of the appendix consistent with a prior appendectomy. Normal abdominal aorta. Normal inferior vena cava. Normal retroperitoneum. Normal urinary bladder. Normal visualized uterus. There is a tampon in the vagina. This a right ovarian cyst measuring 1.7 x 1.6 cm. Normal abdominal wall. Normal osseous structures. CT/Abdomen/Pelvis without Cont IMPRESSION: Constipation. Status post appendectomy. No visualized renal ureteral or bladder calculi. Small right ovarian cyst. Electronically Signed: Shawanda Genao MD at 17:06 EDT Tel , Service support ,
[2019-04-10 16:34] LABS: ALB/GLOB Ratio 1.3 RATIO (0.9-2.4); AST(SGOT) 16 U/L (15-37); Alanine Aminotransfer ALT/SGPT 17 U/L (13-56); Albumin, Serum 3.8 g/dL (3.2-5.0); Alkaline Phosphatase 49 U/L (45-117); Anion Gap 7 (5-15); BUN 11 mg/dL (7-18); BUN/Creat Ratio 14.8 RATIO (10-20); Calcium,Total 8.6 mg/dL (8.5-10.1); Chloride 110 mmol/L (98-107); Creatinine, Serum 0.74 mg/dL (0.55-1.02); EST Glomerular Filtration Rate 97 mL/min (>60); Est Glom Filt Rate - Afr Amer 117 mL/min (>60); Estimated Creatinine Clearance 95.99 ml/min; Glucose 80 mg/dL (74-106); Lipase 91 U/L (73-393); Potassium 3.8 mmol/L (3.5-5.1); Protein, Total 6.8 g/dL (6.4-8.2); Sodium Level 141 mmol/L (136-145)
[2019-04-10 17:00] VITALS: RESP 16
--- NOTE | 2019-04-10 17:16 | ED.DEP ---
ED Disposition - Plan for ED Patient: Instructions: ABDOMINAL PAIN, Unknown Cause, (Female) Prescriptions: Ondansetron [Zofran Odt] 4 mg PO Q8H PRN PRN #10 tab PRN Reason: Nausea Prescription Printed Referrals: Digna Estrada MD [Primary Care Provider] - Lenny Fischer MD [STAFF PHYSICIAN] - 3-5 Days
[2019-04-10 17:28] VITALS: BP 109/61; PULSE 55; RESP 16; O2SAT 100
== END 2019-04-10 17:29 | disposition home or self-care (01) ==
LOC: ED 15:52
PROVIDERS: Emergency Provider Emergency Medicine; Family Provider Internal Medicine; PCP Internal Medicine
DX: R10.13 Epigastric pain (principal); R10.11 Right upper quadrant pain; R50.9 Fever, unspecified; R11.0 Nausea; N83.201 Unspecified ovarian cyst, right side; Z72.0 Tobacco use
CPT/HCPCS: 74176; 76705; 80053; 83690; 85025; 96360; 96361; 99283; J7030; A4216

== ENCOUNTER 2019-05-28 16:55 | Emergency (ER) | payer MEDICAID, SELFPAY ==
[2019-05-28 16:56] VITALS: BP 155/94; PULSE 101; RESP 17; TEMP 36.7; O2SAT 97; BMI 22.8
--- NOTE | 2019-05-28 17:22 | ED.DCSUM_ITS ---
History of Present Illness Chief Complaint: Laceration Detail of Chief Complaint: Crush injury right long finger Informant: Patient Onset: Today Context: Sudden Onset Quality: Throbbing pain Location: Right long finger Current Severity: Severe Maximum Severity: Severe Worsened by: Movement Relieved by: Nothing Associated Symptoms: No associated symptoms Narrative: Patient is a 28-year-old [id number]-[id number] woman who presents with crush inj ury right long finger. She states her finger was smashed by car door. Tetanus is unknown. She denies paresthesia, anesthesia motor weakness. She is reluctant to move her finger because of pain. She demanded pain medicine before moving. She was instructed to please cooperate and do the simple maneuvers I requested. She did. She was given pain medicine. Prior similar symptoms: No Recent Illness/Hospitalization: No - Past Medical History (1) Migraine Status: Acute (2) Xanax overdose Status: Acute Past Medical History - Allergies and Home Meds Allergies/Adverse Reactions: Allergies lactose Allergy (Verified 05/28/19 16:56) Other metoclopramide [From Reglan] Allergy (Verified 05/28/19 16:56) Other methylphenidate HCl [From Ritalin] Adverse Reaction (Severe, Verified 05/28/19 16:56) Other seizures tramadol Adverse Reaction (Verified 05/28/19 16:56) Vomiting Primary Care Physician: Digna Estrada MD [Primary Care Provider] - Prior records reviewed: Yes - No significant past medical history Surgical History: tonsillectomy, - - hemorrhoidectomy Lives: With Family Smoking Status: Current every day smoker Alcohol: Rare Drugs: - - History of benzodiazepine overdose per medical records - Family History Maternal Family History: Reports: No pertinent history Review of Systems General: Denies: Chills, Fever, Subjective, Sweats Musculoskeletal: Reports: Swelling, Extremity Pain. Denies: Myalgias, Arthralgias, Neck pain, Back pain Skin: Reports: Wounds. Denies: Rash, Abrasions Neurological: Denies: Weakness, Parasthesia, Numbness Hematologic: Denies: Easy bruising, Easy bleeding Physical Exam Vital Signs/Narrative: Vital Signs Temp Pulse Resp BP Pulse Ox 05/28/19 16:56 98.1 F 101 H 17 155/94 H 97 Inital Vital Signs reviewed: Yes General: Well nourished, Well developed, Acute Distress Head: Normocephalic, Atraumatic Eyes: Perrl, EOMI. Negative for: Pale conjunctiva, Scleral icterus ENT: Moist mucous membranes, No rhinorrhea Cardiovascular: Regular rate, Regular rhythm Respiratory: No distress Extremities: No edema, Tenderness, - - There is a superficial laceration volar surface right long finger. There is a 10% subungual hematoma. The flexor digitorum superficialis and flexor digitorum profundus are intact. The extensor commonness tendon is intact. The digit is swollen over the distal phalanx. S ensation is intact. Capillary refill is normal.. Negative for: Nontender, Edema, Calf Tenderness Skin: Normal color, No rash, Trauma. Negative for: Cyanosis, Diaphoresis, J aundice Neurological: Alert, Oriented x3, Cranial nerves II-XII grossly intact, Normal Strength, Normal Sensation Psychological: Normal affect Diagnostic/Tx/Re-eval Chest X-Ray - ED: Read by ED Physician, - - Review x-ray of the right long finger reveals no evidence of fracture, foreign body or subcutaneous air. - Medical Decision Making X-ray of the digit was obtained to evaluate for fracture. If there is evidence of fracture we will treat with antibiotics otherwise splint and NSAIDs. Differential is contusion with superficial laceration versus open fracture Shunt was instructed to take either 4 ibuprofen every 8 hours or 2 Aleve every 12 hours for her pain. She was placed in an aluminum splint for comfort. ED Disposition - Plan for ED Patient: Disposition: Home or Assisted Living Diagnosis: Crushing injury of finger, right, Subungual hematoma of finger of right hand, Superficial laceration Instructions: LACERATION, Small/superficial, Not sutured, Subungual Hematoma Referrals: Digna Estrada MD [Primary Care Provider] - 1 Week if not improving Additional Instructions: You may lose her fingernail. You may have pain for several days. Keep wound clean and dry for the next 24 to 48 hours. If any concern for infection see your primary care physician, Dr. Estrada, or return to the emergency department
[2019-05-28] MEDS: Ibuprofen 600 MG Tablet PO (17:34)
[2019-05-28] MEDS: HYDROcodone Bitartrate/Apap 5/325 Tablet PO (17:34)
[2019-05-28] MEDS: Diphth,Pertuss(Acell),Tet Vac 0.5 ML Vial IM (17:34)
--- NOTE | 2019-05-28 17:57 | RAD_ITS ---
STUDY: X-RAY - RIGHT HAND, ATTENTION THIRD FINGER REASON FOR EXAM: Female, 28 years old. Trauma TECHNIQUE: 3 view(s) of the finger were obtained. COMPARISON: None. FINDINGS: Normal metacarpal head. Normal metacarpophalangeal joint. Normal proximal phalanx. Normal middle phalanx. Normal distal phalanx. Normal proximal interphalangeal joint. Normal distal interphalangeal joint. There is no demonstrated fracture. RAD/Finger(s) Min 2 Views IMPRESSION: Normal x-ray examination of the finger. Electronically Signed: Gennaro Tripathi MD at 18:13 EDT , Service support ,
== END 2019-05-28 18:30 | disposition home or self-care (01) ==
PROVIDERS: Emergency Provider Emergency Medicine; Family Provider Internal Medicine; PCP Internal Medicine
DX: S67.192A Crushing injury of right middle finger, initial encounter (principal); S61.212A Laceration without foreign body of right middle finger without damage to nail, initial encounter; S60.131A Contusion of right middle finger with damage to nail, initial encounter; W23.0XXA Caught, crushed, jammed, or pinched between moving objects, initial encounter; Y93.9 Activity, unspecified; Y92.9 Unspecified place or not applicable; F17.200 Nicotine dependence, unspecified, uncomplicated
CPT/HCPCS: 73140; 90471; 90715; 99283; A4216

== ENCOUNTER 2019-07-03 14:47 | Emergency (ER) | payer MEDICAID, SELFPAY ==
[2019-07-03 14:48] VITALS: BP 105/70; PULSE 79; RESP 18; TEMP 36.1; O2SAT 98; BMI 23.1
--- NOTE | 2019-07-03 15:06 | ED.VISSUMM ---
- ER Visit Summary Date of Service: 07/03/19 Chief Complaint: Legs hurt History of Present Illness: The patient is a 28 F with bilateral lower leg pain. Symptoms started overnight. Patient denies any injuries or new activities or inciting factors. She never had this before. Her pain is worse with ambulation. Nothing seems to make it better. There are no associated symptoms except for occasional shooting pains that radiate up her leg and last several seconds. No history of DVTs. She believes her legs are swollen bilaterally. No history of recent surgery or immobilization. No fevers or systemic symptoms. No other associated symptoms. Physical Examination: Afebrile and vital signs unremarkable. Alert and oriented. No acute distress. Leg inspection is unremarkable. I do not visualize any significant edema or swelling. Skin appears normal. She is neurovascular intact distally. She has good range of motion. Good strength and sensation. She does have some calf pain bilaterally. No palpable cords or other abnormal findings. Test Results: Basic labs and CPK pending. Emergency Department Course and Treatment: Patient treated with fluids and Toradol while awaiting results. I believe this is likely myofascial pain. There is nothing to suggest trauma or bony abnormality. She is neurovascularly intact. She is not having back pain. She is not having fever or infectious symptoms. She has no risk factors for DVT. Furthermore, her pain is bilateral. This would be very unlikely for DVT. She was treated with fluid and Toradol. CBC, BMP, CPK unremarkable. Patient has myalgias. No neurologic findings. No trauma. Nothing to suggest DVT or other vascular abnormality. We will treat the patient symptomatically with naproxen and Flexeril. Stay hydrated. Follow-up with primary care. Treatment Plan: As above Disposition: Discharge Impression: 1. Myalgias bilateral legs This note was generated with [employer] software. It may contain incorrect words, spelling, and punctuation that were not noted in review of the chart prior to signing ED Disposition - Plan for ED Patient: Referrals: Digna Estrada MD [Primary Care Provider] -
[2019-07-03] MEDS: 0.9% Normal Saline 1,000 ML 999 ML IV (15:32)
[2019-07-03] MEDS: Ketorolac 30 MG/ML Syringe IV (15:32)
[2019-07-03 15:49] LABS: Absolute Lymphocyte Count 2.41 X10^3/uL (0.83-4.51); Absolute Neutrophil Count 3.7 X10^3/uL (2.0-7.7); Basophil# 0.04 X10^3/uL; Basophil% 0.6 % (0-1); Eosinophil# 0.13 X10^3/uL; Eosinophils% 1.9 % (0-5); Hematocrit 39.1 % (37-47); Lymphocyte # 2.41 X10^3/ul (4.0); Lymphocyte % 35.5 % (19-41); Mean Corp Hgb Conc 33.2 g/dL (32-36); Mean Corpuscular Hgb 30.5 pg (27.0-32.0); Mean Corpuscular Volume 91.8 fL (81-99); Mean Platelet Vol. 10.5 fl (6.2-12.0); Monocyte% 7.4 % (0-10); NRBC Flagged by Analyzer 0 % (0-5); Neutrophil # 3.69 X10^3/uL (2.7-7.7); Neutrophil % 54.5 % (47-70); Platelet Count 192 K/mm3 (150-450); RBC Distribution Width CV 13.2 % (11.6-14.6); RBC Distribution Width SD 44.8 fl (35.1-43.9); Red Blood Count 4.26 M/mm3 (4.2-5.4); White Blood Count 6.8 K/mm3 (4.4-11.0)
[2019-07-03 16:04] LABS: Anion Gap 5 (5-15); BUN 11 mg/dL (7-18); BUN/Creat Ratio 16.3 RATIO (10-20); CPK Total, Creatine Kinase 112 U/L (26-192); Calcium,Total 8.1 mg/dL (8.5-10.1); Chloride 112 mmol/L (98-107); Creatinine, Serum 0.67 mg/dL (0.55-1.02); EST Glomerular Filtration Rate 109 mL/min (>60); Est Glom Filt Rate - Afr Amer 131 mL/min (>60); Estimated Creatinine Clearance 106.02 ml/min; Glucose 85 mg/dL (74-106); Potassium 3.8 mmol/L (3.5-5.1); Sodium Level 143 mmol/L (136-145)
--- NOTE | 2019-07-03 16:21 | ED.DEP ---
ED Disposition - Plan for ED Patient: Instructions: Myalgias Prescriptions: cycloBENZAPRine HCl [Flexeril] 10 mg PO TID PRN #20 tab PRN Reason: Muscle Spasm Prescription Printed Naproxen [Naprosyn] 500 mg PO BID PRN #20 tab Prescription Printed Referrals: Digna Estrada MD [Primary Care Provider] -
== END 2019-07-03 16:36 | disposition home or self-care (01) ==
LOC: ED 15:16
PROVIDERS: Emergency Provider Emergency Medicine; Family Provider Internal Medicine; PCP Internal Medicine
DX: M79.661 Pain in right lower leg (principal); M79.662 Pain in left lower leg; Z72.0 Tobacco use
CPT/HCPCS: 80048; 82550; 85025; 96361; 96374; 99283

== ENCOUNTER 2019-12-12 16:37 | Emergency (ER) | payer MEDICAID, SELFPAY ==
[2019-12-12 16:40] VITALS: BP 109/70; PULSE 86; RESP 19; TEMP 36.9; O2SAT 98; BMI 23.8
[2019-12-12] MEDS: Ketorolac 30 MG/ML Syringe IM (17:08)
[2019-12-12] MEDS: Acetaminophen 500 MG Tablet 1000 MG PO (17:09)
--- NOTE | 2019-12-12 17:15 | RAD_ITS ---
STUDY: X-RAY CHEST REASON FOR EXAM: Female, 29 years old. PATIENT REPORTS FLU LIKE SYMPTOMS, COUGH, FEVER OF 103.1 LAST NIGHT, AND RASH TECHNIQUE: PA and lateral views of the chest. COMPARISON: 11/16/2014 FINDINGS: The lungs are clear and expanded. There is no demonstrated pleural abnormality. Normal size heart. Normal mediastinum and gutierrez. Normal visualized pulmonary arteries. Normal visualized aortic arch and descending thoracic aorta. Normal visualized thoracic spine. Normal visualized ribs, clavicles, and shoulders. There is no demonstrated abnormality of the visualized soft tissue structures of the upper abdomen. RAD/Chest PA and Lateral IMPRESSION: Stable, nonacute x-ray examination of the chest. Electronically Signed: Valentin Yoo MD ([place]) at 17:27 EDT , Service support ,
--- NOTE | 2019-12-12 17:46 | ED.DCSUM_ITS ---
History of Present Illness Informant: Patient Onset: Days - 5 days Context: Gradual Onset Timing: Continuous Quality: Aching Location: Myalgias, sore throat, headache Current Severity: Severe Maximum Severity: Severe Worsened by: Swallowing Relieved by: Tylenol, NSAIDs Associated Symptoms: Nasal Congestion, Headache, Sinus Pressure, Myalgias, Nonproductive cough. Negative for: Nausea, Vomiting, Diarrhea, Shortness of Breath, Chest Pain, Hemoptysis, Productive Cough Narrative: 29-year-old female who denies any significant past medical history presents to the emergency department with nonproductive cough, sore throat, headache, congestion and myalgias. No fevers or chills. No vomiting or diarrhea. No lightheadedness or dizziness. No chest pain or shortness of breath. No hemoptysis. No leg pain or swelling. No difficulty breathing swallowing or opening closing her mouth. No sick contacts. She has not used any [id number]-[id number] medications. Prior similar symptoms: Yes Recent Illness/Hospitalization: No <Lenny Pickett - Last Filed: 12/12/19 17:46> <Micki Serrato - Last Filed: 12/12/19 18:30> Chief Complaint: Cough Past Medical History Prior records reviewed: Yes Past Medical History: None Surgical History: tonsillectomy, - - hemorrhoidectomy Lives: With Family Smoking Status: Current every day smoker Alcohol: Occasional Drugs: None - Family History Maternal Family History: Reports: No pertinent history <Lenny Pickett - Last Filed: 12/12/19 17:46> <Micki Serrato - Last Filed: 12/12/19 18:30> - Allergies and Home Meds Allergies/Adverse Reactions: Allergies methylphenidate HCl [From Ritalin] Allergy (Severe, Verified 12/12/19 16:39) SEIZURES seizures lactose Allergy (Verified 12/12/19 16:39) Upset Stomach metoclopramide [From Reglan] Allergy (Verified 12/12/19 16:39) Unknown tramadol Adverse Reaction (Verified 12/12/19 16:39) Vomiting Primary Care Physician: Digna Estrada MD [Primary Care Provider] - 3-5 Days Review of Systems All systems negative except as indicated General: Denies: Chills, Fever, Malaise Eyes: Denies: Visual changes - bilaterally, Blurred Vision - bilaterally, Diplopia ENT: Reports: Rhinorrhea, Sore throat Cardiovascular: Denies: Chest pain, Palpitations, Heart racing Respiratory: Reports: Cough. Denies: Dyspnea, Sputum, Dyspnea on exertion, Orthopnea, Paroxysmal nocturnal dyspnea Gastrointestinal: Denies: Abdominal pain, Nausea, Vomiting, Diarrhea Genitourinary: Denies: Dysuria, Hematuria, Frequency Musculoskeletal: Reports: Myalgias. Denies: Arthralgias, Neck pain, Back pain, Swelling, Extremity Pain Skin: Denies: Rash, Abscess, Abrasions, Wounds Neurological: Reports: Headache. Denies: Weakness, Parasthesia, Numbness Endocrine: Denies: Polyuria, Polydipsia Hematologic: Denies: Easy bruising, Easy bleeding <Lenny Pickett - Last Filed: 12/12/19 17:46> Physical Exam Vital Signs/Narrative: Vital Signs Temp Pulse Resp BP Pulse Ox 12/12/19 16:40 98.5 F 86 19 H 109/70 98 Inital Vital Signs reviewed: Yes General: Well nourished, Well developed Head: Normocephalic, Atraumatic Eyes: Perrl, EOMI Ears: Normal external canal, TM's clear Nose: Congestion, Purulent Drainage Mouth/Throat: Airway Patent, Posterior Oropharyngeal Erythema. Negative for: Dry Mucous Membranes Tonsils: Absent Neck: Supple, Nontender, No Lymphadenopathy, No Meningismus Cardiovascular: Regular rate, Regular rhythm, No murmurs Respiratory: No distress, CTA bilaterally, Chest nontender Abdomen: Soft, Nontender, Nondistended, Normal bowel sounds Back: Nontender, Normal Inspection Extremities: Nontender, No edema Skin: Normal color, No rash Neurological: Alert, Oriented x3, Cranial nerves II-XII grossly intact, Normal Strength, Normal Sensation, Normal Gait Psychological: Normal affect, Normal Mood <Lenny Pickett - Last Filed: 12/12/19 17:46> Vital Signs/Narrative: Vital Signs Temp Pulse Resp BP Pulse Ox 12/12/19 18:08 85 15 110/71 12/12/19 16:40 98.5 F 86 19 H 109/70 98 <Micki Serrato - Last Filed: 12/12/19 18:30> Diagnostic/Tx/Re-eval Chest X-Ray - ED: 2 View, Read by ED Physician, Read by Radiologist, Unchanged, No Acute Disease - Medical Decision Making Patient presents with normal stable vital signs. She is well-appearing. She is able to tolerate by mouth. Her chest x-ray was unremarkable. She was treated with both Tylenol and Toradol. She had significant improvement. Repeat evaluation she feels well. She will be discharged home. Discussed this is likely a viral upper respiratory tract infection. I prescribed Naprosyn Tessalon Perles as well as an albuterol inhaler. We discussed discontinuation of vaping. <Lenny Pickett - Last Filed: 12/12/19 17:46> - Medical Decision Making I have personally performed a iqkm-ht-rmwa assessment of the patient and have reviewed the [employer] SEC[employer] CONSULTANT/PA note. My golden findings include 29-year-old female presenting with URI symptoms. Vitals are stable. Lungs are clear to auscultation bilaterally. Chest x-ray is unremarkable. She is advised signs and symptoms for which to return to the ED. Advised to follow-up with primary care physician. <Micki Serrato - Last Filed: 12/12/19 18:30> ED Disposition <Lenny Pickett - Last Filed: 12/12/19 17:46> <Micki Serrato - Last Filed: 12/12/19 18:30> - Plan for ED Patient: Disposition: Home or Assisted Living Diagnosis: Viral upper respiratory tract infection with cough Instructions: VIRAL SYNDROME (Adult) Prescriptions: Naproxen [Naprosyn] 500 mg PO BID PRN #20 tab Prescription Printed proMETHazine tablet [Phenergan] 25 mg PO Q6H PRN PRN #10 tab PRN Reason: Nausea Prescription Printed Benzonatate [Tessalon Perle] 200 mg PO TID PRN PRN #20 cap PRN Reason: Cough Prescription Printed Albuterol Inhaler [Ventolin Hfa] 1 - 2 puff INHALATION Q4H PRN PRN #1 inhaler PRN Reason: Wheezing Prescription Printed Hydroxyzine Pamoate [Vistaril] 50 mg PO 4X/DAY PRN PRN #20 cap PRN Reason: Itching Prescription Printed Referrals: Digna Estrada MD [Primary Care Provider] - 3-5 Days
[2019-12-12] MEDS: hydrOXYzine PAM 25 MG Capsule 50 MG PO (18:04)
[2019-12-12 18:08] VITALS: BP 110/71; PULSE 85; RESP 15
== END 2019-12-12 18:09 | disposition home or self-care (01) ==
PROVIDERS: Emergency Provider Physician Assistant Medical; PCP Internal Medicine
DX: J06.9 Acute upper respiratory infection, unspecified (principal); F17.200 Nicotine dependence, unspecified, uncomplicated
CPT/HCPCS: 71046; 96372; 99283

== ENCOUNTER 2020-02-15 18:39 | Emergency (ER) | payer MEDICAID, SELFPAY ==
[2020-02-15 18:40] VITALS: BP 123/67; PULSE 85; RESP 16; TEMP 36.2; O2SAT 98; BMI 24.5
--- NOTE | 2020-02-15 19:22 | RAD_ITS ---
STUDY: X-RAY - LEFT TIBIA AND FIBULA REASON FOR EXAM: Female, 29 years old. shut lower leg in car door TECHNIQUE: 2 view(s) of the tibia and fibula were obtained. COMPARISON: None. FINDINGS: Normal visualized tibia. Normal visualized fibula. The soft tissue structures are unremarkable. RAD/Tibia & Fibula 2 Views IMPRESSION: Normal x-ray examination of the tibia and fibula. Electronically Signed: Daniel Mata MD at 20:16 EDT , Service support ,
--- NOTE | 2020-02-15 19:28 | ED.VISSUMM ---
- ER Visit Summary Date of Service: 02/15/20 Chief Complaint: Left leg pain History of Present Illness: The patient is a 29 F presenting with left leg pain. Patient states that a car door was accidentally slammed and her leg was struck by the door. This occurred just prior to arrival. No other injuries. Physical Examination: Vitals are stable. Patient is afebrile. Alert no acute distress. HEENT exam is unremarkable. Neck is nontender Lungs are clear and equal bilaterally. Heart is regular rate and rhythm. Extremities left miner tenderness with mild abrasion. Neurovascular intact distally Skin is warm and dry. No focal neurologic deficit. Remainder of exam is unremarkable. Emergency Department Course and Treatment: Patient given tetanus IM. Left tib-fib x-ray shows Normal x-ray examination of the tibia and fibula. Patient eloped from the ED prior to receiving her discharge instructions or results. Disposition: Elopement Impression: Left leg contusion This note was generated with [employer] dictation software. It may contain incorrect words, spelling, and punctuation that were not noted in review of the chart prior to signing ED Disposition - Plan for ED Patient: Disposition: Home or Assisted Living Referrals: Digna Estrada MD [Primary Care Provider] -
[2020-02-15] MEDS: Diphth,Pertuss(Acell),Tet Vac 0.5 ML Vial IM (20:11)
--- NOTE | 2020-02-15 20:58 | ED.RN ---
Addendum entered by Jemima Acosta 02/15/20 20:59: DR. TANK JIMENEZ AWARE OF PT LEAVING. Original Note: PT CALLED RN TO ROOM. PT STATES HE RIDE NEEDS TO LEAVE AND THAT SHE HAS BEEN HERE LONG ENOUGH. APOLOGIZED TO PT FOR THE LONG WAIT, BUT DID EXPLAIN WE ARE BUSY. PT REPLIES THIS HOSPITAL IS A JOKE. PT PROCEEDS TO WALK OUT OF ER.
== END 2020-02-15 21:01 | disposition home or self-care (01) ==
LOC: ED 20:31
PROVIDERS: Emergency Provider Emergency Medicine; PCP Internal Medicine
DX: S80.12XA Contusion of left lower leg, initial encounter (principal); W23.0XXA Caught, crushed, jammed, or pinched between moving objects, initial encounter; Y93.9 Activity, unspecified; Y92.9 Unspecified place or not applicable
CPT/HCPCS: 73590; 90715; 99281; 99282

== ENCOUNTER 2020-03-10 18:37 | Emergency (ER) | payer MEDICAID, SELFPAY ==
[2020-03-10 18:37] VITALS: BP 126/73; PULSE 86; RESP 16; TEMP 37.1; O2SAT 98; BMI 25.9
--- NOTE | 2020-03-10 19:08 | CT_ITS ---
STUDY: CT ABDOMEN AND PELVIS WITHOUT CONTRAST REASON FOR EXAM: Female, 29 years old. LEFT FLANK PAIN. RADIATION DOSAGE (If Supplied By Facility): CTDIvol = ( 6.19 ) mGy, DLP = ( 290.70 ) mGycm TECHNIQUE: Transaxial images were obtained from the dome of the diaphragm to the symphysis pubis without oral contrast, and without intravenous contrast. Sagittal and coronal images were reconstructed. Individualized dose optimization techniques were used for this CT. COMPARISON: None. FINDINGS: The visualized lung bases are unremarkable. The visualized portions of the heart are within normal limits. Normal liver. Normal gallbladder and extrahepatic biliary system. Normal spleen. Normal pancreas. Normal bilateral adrenal glands. Normal right kidney. Normal left kidney. Normal visualized stomach. Normal small intestine. Normal colon. There are surgical clips in the region of the appendix consistent with a prior appendectomy. Normal abdominal aorta. Normal inferior vena cava. Normal retroperitoneum. Normal urinary bladder. Prominent uterus Normal abdominal wall. Normal osseous structures. CT/Abdomen/Pelvis without Cont IMPRESSION: Normal unenhanced CT of the abdomen and pelvis. There are surgical clips in the region of the appendix consistent with a prior appendectomy. Electronically Signed: Marcel Sanabria, at 21:04 EDT Tel , Service support ,
[2020-03-10] MEDS: Ondansetron 4 MG/2 ML Vial IV (19:25)
[2020-03-10] MEDS: 0.9% Normal Saline 1,000 ML 250 ML IV (19:25)
[2020-03-10] MEDS: Ketorolac 30 MG/ML Syringe 15 MG IV (19:26)
[2020-03-10] MEDS: Morphine 4 MG/ML Syringe IV ×2 (19:27→21:33)
[2020-03-10 19:29] VITALS: BP 116/79; PULSE 73; RESP 14; O2SAT 100
[2020-03-10 19:31] LABS: Absolute Neutrophil Count 8.4 X10^3/uL (2.0-7.7); Basophil# 0.03 X10^3/uL; Basophil% 0.3 % (0-1); Eosinophils% 0.9 % (0-5); Hematocrit 37.9 % (37-47); Hemoglobin 12.4 g/dL (12.0-15.0); Lymphocyte % 16.2 % (19-41); Mean Corp Hgb Conc 32.7 g/dL (32-36); Mean Corpuscular Hgb 31.1 pg (27.0-32.0); Mean Platelet Vol. 10.2 fl (6.2-12.0); Monocyte% 6.3 % (0-10); NRBC Flagged by Analyzer 0 % (0-5); Neutrophil # 8.44 X10^3/uL (2.7-7.7); Platelet Count 216 K/mm3 (150-450); RBC Distribution Width CV 12.7 % (11.6-14.6); RBC Distribution Width SD 44.2 fl (35.1-43.9); Red Blood Count 3.99 M/mm3 (4.2-5.4); White Blood Count 11.1 K/mm3 (4.4-11.0)
--- NOTE | 2020-03-10 19:41 | ED.VIS.GEN ---
History of Present Illness Chief Complaint: Flank Pain Informant: Patient Onset: Yesterday Context: Sudden Onset Timing: Continuous, Waxes and wanes Quality: Pain Location: Left flank radiating to the left lower quadrant Current Severity: Moderate Maximum Severity: Severe Worsened by: Nothing Relieved by: Nothing Associated Symptoms: Frequency, urgency Narrative: Patient is a 29-year-old status post bilateral salpingo-ectomy who presents with acute left flank pain that radiates to the left lower quadrant associated with urgency and frequency. She denies dysuria. She denies hematuria. She denies fever, chills night sweats. She does report nausea without vomiting. There is no history of trauma. She has not noted a rash. She has no known history of renal or ureterolithiasis. She denies vomiting or diarrhea. She denies hematemesis, melena medic easier. There is no history of inflammatory bowel disorder. There is no history of hernia. Prior similar symptoms: No Recent Illness/Hospitalization: No - Past Medical History (1) Migraine Status: Acute (2) Xanax overdose Status: Acute (3) Previous delivery, delivered Status: Chronic Past Medical History - Allergies and Home Meds Allergies/Adverse Reactions: Allergies methylphenidate HCl [From Ritalin] Allergy (Severe, Verified 03/10/20 18:37) SEIZURES seizures lactose Allergy (Verified 03/10/20 18:37) Upset Stomach metoclopramide [From Reglan] Allergy (Verified 03/10/20 18:37) Unknown tramadol Adverse Reaction (Verified 03/10/20 18:37) Vomiting Primary Care Physician: Digna Estrada MD [Primary Care Provider] - Prior records reviewed: Yes - Reviewed prior CAT scan. No stone visualized Surgical History: tonsillectomy, - - hemorrhoidectomy Lives: With Family Smoking Status: Current every day smoker Alcohol: Rare Drugs: None - Family History Maternal Family History: Reports: No pertinent history Review of Systems General: Denies: Chills, Fever, Sweats, Weight loss Eyes: Denies: Visual changes - bilaterally, Blurred Vision - bilaterally ENT: Denies: Rhinorrhea, Sore throat Cardiovascular: Denies: Chest pain, Palpitations, Heart racing Respiratory: Denies: Dyspnea, Cough, Dyspnea on exertion Gastrointestinal: Reports: Abdominal pain, Nausea. Denies: Vomiting, Diarrhea, Melena, Hematochezia Genitourinary: Reports: Frequency, - - Urgency. Denies: Dysuria, Hematuria Musculoskeletal: Reports: Back pain. Denies: Myalgias, Arthralgias, Neck pain, Swelling, Extremity Pain, -, - Skin: Denies: Rash, Wounds Neurological: Denies: Headache, Weakness, Numbness Endocrine: Denies: Polyuria, Polydipsia Hematologic: Denies: Easy bruising, Easy bleeding Allergy: Denies: Uticaria, Swelling of the mouth Physical Exam Vital Signs/Narrative: Vital Signs Temp Pulse Resp BP Pulse Ox 03/10/20 19:29 73 14 116/79 100 03/10/20 18:37 98.7 F 86 16 126/73 H 98 Inital Vital Signs reviewed: Yes General: Well nourished, Well developed, Acute Distress Head: Normocephalic, Atraumatic Eyes: Perrl, EOMI ENT: Moist mucous membranes, No rhinorrhea, TM's clear Neck: Supple, Nontender Cardiovascular: Regular rate, Regular rhythm, No murmurs, Normal S1, Normal S2 Respiratory: No distress, CTA bilaterally, Chest nontender Abdomen: Soft, Nondistended, Normal bowel sounds, Tender - Gennaro left lower quadrant and over left flank Back: Nontender, Normal Inspection, CVA tenderness - Left side Extremities: Nontender, No edema Skin: Normal color, No rash, No Trauma. Negative for: Cyanosis, Diaphoresis, Jaundice Neurological: Alert, Oriented x3, Cranial nerves II-XII grossly intact, Normal Strength, Normal Sensation Psychological: Normal affect, Normal Mood Diagnostic/Tx/Re-eval Impressions Abdomen/Pelvis CT 03/10/20 19:08 IMPRESSION: Normal unenhanced CT of the abdomen and pelvis. There are surgical clips in the region of the appendix consistent with a prior appendectomy. Electronically Signed: Marcel Sanabria, at 21:04 EDT Tel , Service support , 03/10/20 19:08 Abdomen/Pelvis without Cont [CT] Stat Laboratory Results 03/10/20 03/10/20 19:20 20:47 WBC 11.1 H RBC 3.99 L Hgb 12.4 Hct 37.9 MCV 95.0 MCH 31.1 MCHC 32.7 RDW Std Deviation 44.2 H RDW Coeff of Eulogio 12.7 Plt Count 216 MPV 10.2 Immature Gran % (Auto) 0.300 Neut % (Auto) 76.0 H Lymph % (Auto) 16.2 L [place] % (Auto) 6.3 Eos % (Auto) 0.9 Baso % (Auto) 0.3 Absolute Neuts (auto) 8.4 H Absolute Lymphs (auto) 1.80 Nucleated RBC % 0 Urine Color Yellow Urine Clarity Cloudy Urine pH 7.0 Ur Specific [place] 1.010 Urine Protein 100 H Urine Glucose (UA) Normal Urine Ketones Negative Urine Occult Blood 50 H Urine Nitrite Positive H Urine Bilirubin Negative Urine Urobilinogen Normal Ur Leukocyte Esterase 500 H Urine RBC 0-5 SEEN Urine WBC 50-100 SEEN Ur Squamous Epith Cells 0-5 SEEN Urine Bacteria 1+ Urine Mucus 0 SEEN Patient has evidence of urinary tract infection. Since she has flank pain we will treat for pyelonephritis. Culture was sent. She received dose of Rocephin and was discharged with prescription for cephalexin and anti-inflammatory. - Medical Decision Making And is in obvious discomfort. She is crying. With acute left flank pain need to evaluate for pyelonephritis, obstructing ureteral stone. She was medicated with appropriate meds and appropriate labs were ordered. Patient was treated with IV Toradol, Zofran and morphine. I was informed at 2045 that patient requested more pain medicine. My review of her CAT scan reveals no abnormality. She has not provided a urinary specimen. Therefore she was given 20 of Bentyl. ED Disposition - Plan for ED Patient: Disposition: Home or Assisted Living Diagnosis: Pyelonephritis Instructions: ED Pyelonephritis Female Adult Prescriptions: Cephalexin [Keflex] 500 mg PO 4X/DAY #30 cap Transmission Status: Pending to [facility] Referrals: Digna Estrada MD [Primary Care Provider] - 3-5 Days
[2020-03-10 20:59] LABS: Color, Urine Yellow (Yellow); Glucose, Dipstick Normal (Normal); Ketone-Dipstick Negative (Negative); Leukocyte Esterase-Dipstick 500 /ul (Negative); Mucous, Urine 0 SEEN /hpf (<or=2+); Nitrite-Dipstick Positive (Negative); Occult Blood-Urine 50 /ul (Negative); Protein-Dipstick 100 mg/dl (Negative); Urine Bilirubin Dipstick Negative (Negative); Urine Clarity Cloudy (Clear); Urine Urobilinogen Normal (Normal)
[2020-03-10 21:07] LABS: Bacteria 1+ /hpf (None Seen)
[2020-03-10 21:09] LABS: Red Blood Cells-Urine 0-5 SEEN /hpf (0-5); White Blood Cells 50-100 SEEN /hpf (0-5)
[2020-03-10 21:10] LABS: Squamous Epithelial Cells - UA 0-5 SEEN /hpf (5-10)
--- NOTE | 2020-03-10 21:18 | ED.DCSUM_ITS ---
- ER Visit Summary Date of Service: 03/10/20 Chief Complaint: [] History of Present Illness: The patient is a 29 F [] Physical Examination: [] Test Results: [] Emergency Department Course and Treatment: [] Treatment Plan: [] Disposition: [] Impression: [] This note was generated with [employer] dictation software. It may contain incorrect words, spelling, and punctuation that were not noted in review of the chart prior to signing ED Disposition - Plan for ED Patient: Disposition: Home or Assisted Living Diagnosis: Pyelonephritis Instructions: ED Pyelonephritis Female Adult Prescriptions: Cephalexin [Keflex] 500 mg PO 4X/DAY #30 cap Transmission Status: Pending to [facility] Hydrocodone Bitart/Apap 5-325 [[place] 5MG-325MG] 1 tab PO Q6H PRN PRN 3 Days #10 tab PRN Reason: Pain Prescription Printed Referrals: Digna Estrada MD [Primary Care Provider] - 3-5 Days
[2020-03-10] MEDS: Dicyclomine 10 MG Capsule 20 MG PO (21:34)
[2020-03-10] MEDS: Ceftriaxone 1 GM/50 ML BAG IV (21:34)
[2020-03-10 22:26] VITALS: BP 112/80; PULSE 78; RESP 12; O2SAT 98
== END 2020-03-10 22:27 | disposition home or self-care (01) ==
PROVIDERS: Emergency Provider Emergency Medicine; PCP Internal Medicine
DX: N12 Tubulo-interstitial nephritis, not specified as acute or chronic (principal); F17.200 Nicotine dependence, unspecified, uncomplicated
CPT/HCPCS: 74176; 81001; 85025; 87086; 87088; 87186; 96361; 96365; 96375; 96376; 99284; J7030; A4216; J2405

== ENCOUNTER 2020-05-16 01:47 | Inpatient (IN) | payer MEDICAID, SELFPAY ==
[2020-05-16] VITALS (49 sets, daily range): BP systolic 91–132; BP diastolic 45–106; PULSE 51–108; RESP 11–40; TEMP -17.7–37; O2SAT 94–100; BMI 24.6; BMI 23.1; BMI 23.3
--- NOTE | 2020-05-16 01:54 | RAD_ITS ---
STUDY: X-RAY CHEST REASON FOR EXAM: Female, 29 years old. Respiratory failure TECHNIQUE: Single AP portable view of the chest. COMPARISON: 05/16/2020 at 0230 FINDINGS: Endotracheal tube tip projects approximately 3 cm above the kym. Nasogastric tube tip projects over the mid gastric body with the proximal sidehole positioned near the gastroesophageal junction. No confluent airspace opacity. No pleural effusion or pneumothorax. Normal size heart. Normal mediastinum and gutierrez. Normal visualized pulmonary arteries. Normal visualized aortic arch and descending thoracic aorta. Normal visualized thoracic spine. Normal visualized ribs, clavicles, and shoulders. There is no demonstrated abnormality of the visualized soft tissue structures of the upper abdomen. RAD/Chest 1 View (Portable) IMPRESSION: 1. Appropriate positioning of supportive devices. 2. No acute cardiopulmonary disease. Electronically Signed: Junaid Gallardo MD at 3:17 EDT Tel , Service support ,
[2020-05-16] MEDS: Albuterol 2.5 MG/3 ML VIAL.NEB. INHALATION (01:55)
[2020-05-16] MEDS: MethylPREDNISolone 125 MG/2 ML Vial IV (01:55)
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
[2020-05-16 02:14] LABS: Absolute Lymphocyte Count 3.89 X10^3/uL (0.83-4.51); Absolute Neutrophil Count 7.9 X10^3/uL (2.0-7.7); Basophil# 0.05 X10^3/uL; Basophil% 0.4 % (0-1); Eosinophil# 0.11 X10^3/uL; Eosinophils% 0.9 % (0-5); Hematocrit 42.7 % (37-47); Hemoglobin 14.3 g/dL (12.0-15.0); Lymphocyte # 3.89 X10^3/ul (4.0); Lymphocyte % 30.8 % (19-41); Mean Corp Hgb Conc 33.5 g/dL (32-36); Mean Corpuscular Hgb 30.4 pg (27.0-32.0); Mean Corpuscular Volume 90.9 fL (81-99); Mean Platelet Vol. 10.5 fl (6.2-12.0); Monocyte% 4.7 % (0-10); NRBC Flagged by Analyzer 0 % (0-5); Neutrophil # 7.94 X10^3/uL (2.7-7.7); Neutrophil % 62.8 % (47-70); Platelet Count 244 K/mm3 (150-450); RBC Distribution Width CV 12.6 % (11.6-14.6); RBC Distribution Width SD 42.1 fl (35.1-43.9); White Blood Count 12.6 K/mm3 (4.4-11.0)
[2020-05-16] MEDS: Etomidate 20 MG/10 ML Vial IV (02:15)
[2020-05-16 02:30] LABS: D-Dimer Quantitative (DVT/PE) <= 0.27 FEU/ug/m (0.27-0.49)
[2020-05-16 02:34] LABS: Anion Gap 8 (5-15); BUN 7 mg/dL (7-18); BUN/Creat Ratio 8.4 RATIO (10-20); Calcium,Total 9.5 mg/dL (8.5-10.1); Chloride 106 mmol/L (98-107); Creatinine, Serum 0.83 mg/dL (0.55-1.02); EST Glomerular Filtration Rate 85 mL/min (>60); Est Glom Filt Rate - Afr Amer 102 mL/min (>60); Estimated Creatinine Clearance 84.81 ml/min; Glucose 96 mg/dL (74-106); Potassium 3.9 mmol/L (3.5-5.1); Sodium Level 141 mmol/L (136-145)
[2020-05-16] MEDS: fentaNYL 100 MCG/2 ML Ampul 50 MCG IV (02:52)
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
[2020-05-16] MEDS: Propofol 10MG/Ml 1,000 MG/100 ML Bottle 3.9 MG CONT INF (02:58)
[2020-05-16 03:06] LABS: Amphetamine Urine VISTA POSITIVE (<1000 ng/mL); Barbiturate Urine VISTA NEGATIVE (< 200 ng/mL); Benzodiazepine Urine VISTA NEGATIVE (< 200 ng/mL); Cocaine Urine VISTA NEGATIVE (< 300 ng/mL); Ecstacy Urine VISTA NEGATIVE (< 500 ng/mL); Methadone Urine VISTA NEGATIVE (< 300 ng/mL); PCP Urine VISTA NEGATIVE (< 25 ng/mL); THC Urine VISTA NEGATIVE (< 50 ng/mL); Vista UDS pH Range 6
[2020-05-16] MEDS: Rocuronium Bromide 50 MG/5 ML Vial IV (03:10)
[2020-05-16] MEDS: Ondansetron 4 MG/2 ML Vial IV ×2 (03:19→15:17)
[2020-05-16 03:21] LABS: Lactic Acid 2.8 mmol/L (0.4-1.9)
--- NOTE | 2020-05-16 03:36 | ED.RN ---
patient continues to fight the ventilator and attempting to pull at the tubes. Sedation has been increased several times with little to no success. Dr. Moreno and Dr. Gonzalez aware. Will continue to provide proper sedation for patient
[2020-05-16 04:10] LABS: Probe Check PASS; Specimen Processing Control PASS
[2020-05-16 05:49] LABS: Absolute Lymphocyte Count 0.74 X10^3/uL (0.83-4.51); Basophil# 0.02 X10^3/uL; Basophil% 0.1 % (0-1); Hematocrit 40.8 % (37-47); Hemoglobin 13.7 g/dL (12.0-15.0); Lymphocyte # 0.74 X10^3/ul (4.0); Lymphocyte % 5.3 % (19-41); Mean Corp Hgb Conc 33.6 g/dL (32-36); Mean Corpuscular Hgb 30.6 pg (27.0-32.0); Mean Corpuscular Volume 91.1 fL (81-99); Mean Platelet Vol. 10.3 fl (6.2-12.0); Monocyte# 0.07 X10^3/uL; Monocyte% 0.5 % (0-10); NRBC Flagged by Analyzer 0 % (0-5); Neutrophil # 12.98 X10^3/uL (2.7-7.7); Neutrophil % 93.6 % (47-70); Platelet Count 206 K/mm3 (150-450); RBC Distribution Width CV 12.6 % (11.6-14.6); RBC Distribution Width SD 42.1 fl (35.1-43.9); Red Blood Count 4.48 M/mm3 (4.2-5.4); White Blood Count 13.9 K/mm3 (4.4-11.0)
[2020-05-16 05:50] LABS: ALB/GLOB Ratio 1.2 RATIO (0.9-2.4); AST(SGOT) 29 U/L (15-37); Alanine Aminotransfer ALT/SGPT 27 U/L (13-56); Albumin, Serum 4.5 g/dL (3.2-5.0); Alkaline Phosphatase 65 U/L (45-117); Anion Gap 11 (5-15); BUN 7 mg/dL (7-18); BUN/Creat Ratio 8.3 RATIO (10-20); Calcium,Total 9.2 mg/dL (8.5-10.1); Chloride 103 mmol/L (98-107); Creatinine, Serum 0.84 mg/dL (0.55-1.02); EST Glomerular Filtration Rate 84 mL/min (>60); Est Glom Filt Rate - Afr Amer 101 mL/min (>60); Globulin 3.6 g/dL (2.2-4.2); Glucose 96 mg/dL (74-106); Magnesium 2.1 mg/dL (1.6-2.6); Potassium 3.8 mmol/L (3.5-5.1); Protein, Total 8.1 g/dL (6.4-8.2); Sodium Level 140 mmol/L (136-145)
--- NOTE | 2020-05-16 05:55 | RAD_ITS ---
STUDY: X-RAY CHEST REASON FOR EXAM: Female, 29 years old. DYSPNEA, COUGH TECHNIQUE: Single AP portable view of the chest. COMPARISON: Earlier today FINDINGS: EKG leads overlie the chest. Tip of the ET tube is 3 cm above the kym. NG tube tip not seen but is below the diaphragm The lungs are clear and expanded. There is no demonstrated pleural abnormality. Normal size heart. Normal mediastinum and gutierrez. Normal visualized pulmonary arteries. Normal visualized aortic arch and descending thoracic aorta. Normal visualized thoracic spine. Normal visualized ribs, clavicles, and shoulders. There is no demonstrated abnormality of the visualized soft tissue structures of the upper abdomen. RAD/Chest 1 View (Portable) IMPRESSION: No acute pulmonary process Stable appearance of the support lines and tubes Electronically Signed: Romaine Hercules MD at 10:42 EDT , Service support ,
[2020-05-16] MEDS: Propofol 10MG/Ml 1,000 MG/100 ML Bottle 15.6 MG CONT INF ×2 (06:15→13:07)
[2020-05-16] MEDS: Famotidine 200 MG/20 ML MDV 20 MG in 0.9% Normal Saline (Pres. free 8 ML 300 MG IV ×2 (06:16→22:27)
[2020-05-16] MEDS: 0.9% Normal Saline 1,000 ML 125 ML IV ×3 (06:28→22:28)
[2020-05-16 06:54] LABS: Reflex Lactate? Y
[2020-05-16] MEDS: Ipratropium/Albuterol Sulfate 3 ML AMPUL.NEB INHALATION ×3 (07:03→19:20)
--- NOTE | 2020-05-16 07:20 | PCM.PN.BLA ---
Progress Note 29 y/o female with past medical history of asthma, nicotine dependence, anxiety/depression who was admitted early this morning, 05/16/20 with acute respiratory failure and was intubated from the emergency department. Patient seen and examined. She is still intubated, lightly sedated, able to communicate by writing. On minimal oxygen requirements. No acute events overnight. Vitals reviewed, stable. Labs reviewed, slight increase in WBC count, lactic acidosis is resolved, CMP is unremarkable. Initial COVID-19 test is negative. Patient however told the import customer service manager that she had loss of sense of taste and smell earlier on. She remains in enhanced precautions. ID consulted Will continue to follow-up on critical care and ID consults. STROKE Vital Signs/Narrative: Vital Signs Temp Pulse Resp BP BP Pulse Ox 05/16/20 06:30 97.6 F L 83 11 L 111/72 99 05/16/20 06:00 97.8 F 84 14 108/72 98 05/16/20 05:45 97.8 F 86 12 105/69 98 05/16/20 05:30 93 16 119/76 98 05/16/20 05:25 90 15 115/82 H 99 05/16/20 05:00 92 16 99 05/16/20 04:45 97.6 F L 98 15 132/98 H 99 05/16/20 04:43 97 05/16/20 04:12 96.2 F L 94 15 120/77 100 05/16/20 03:42 106 H 05/16/20 03:41 96.3 F L 106 H 16 114/75 99 05/16/20 03:27 95.9 F L 101 H 14 112/73 98
--- NOTE | 2020-05-16 08:26 | NT.THERAPY_ITS ---
Nutrition Therapy Report - History Nutrition Services has been consulted to:: Manage enteral nutrition Current diet / nutrition support order:: NPO - Anthropometric Measurements Height:: 5 ft 4 in Weight:: 61.5 kg Body Mass Index (BMI):: 23.3 - Relevant Labs Relevant Labs:: WBC 13.9 K/mm3 (4.4-11.0) H 05/16/20 05:40 Neut % (Auto) 93.6 % (47-70) H 05/16/20 05:40 Lymph % (Auto) 5.3 % (19-41) L 05/16/20 05:40 Absolute Neuts (auto) 13.0 X10^3/uL (2.0-7.7) H 05/16/20 05:40 Absolute Lymphs (auto) 0.74 X10^3/uL (0.83-4.51) L 05/16/20 05:40 BUN/Creatinine Ratio 8.3 RATIO (10-20) L 05/16/20 02:00 BUN/Creatinine Ratio 8.4 RATIO (10-20) L 05/16/20 02:00 Lactic Acid 3.0 mmol/L (0.4-1.9) H* 05/16/20 05:40 - Assessment Food / Nutrition-Related History:: Unable to talk to pt d/t sedated and on vent. 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 UBW: not known. [ End ] - Nutrition Diagnosis Problem / Etiology / Signs & Symptoms (PES):: Pt with inadequate oral po intake r/t sedated and on vent AEB NPO status. [ End ] Evidence of Malnutrition Exists:: No - Nutrition Intervention Nutrition Prescription:: [id number] miesha / 50-60 gm pro /day - Food / Nutrient Delivery Interventions Summary of nutrition intervention:: If pt to remain on vent, rec Vital AF 1.2 at goal rate 60 cc/hr with 100 cc H2O flush every 4 hours to provide ~ 1728 miesha/108 gm pro/ 1767 cc free water per day. Would start tf at 20 cc/hr and increase by 20 cc/hr every 6-8 hrs as pt tolerates until goal rate achieved. If able to resume po diet, then rec SARA to Regular. [ End ] Nutrition support ordered as / adjusted to:: If pt to remain on vent, rec Vital AF 1.2 at goal rate 60 cc/hr with 100 cc H2O flush every 4 hours to provide ~ 1728 miesha/108 gm pro/ 1767 cc free water per day. Would start tf at 20 cc/hr and increase by 20 cc/hr every 6-8 hrs as pt tolerates until goal rate achieved. [ End ] - MNT Monitoring Further MNT monitoring and evaluation required?: Yes MNT Follow-up in:: 1-2 days - please call RD/LD if questions x [phone]
[2020-05-16 08:45] LABS: Blood Gas Specimen Type ART; SITE L RADIAL
[2020-05-16 08:46] LABS: Allen Test POS; FI02 21; Mode A-C; O2 Delivery Device ADULT VENTILATOR; PEEP 5; RR 14; Vt 450
[2020-05-16 08:47] LABS: PO2 97 mmHG (75-100); pCO2 30.3 mmHg (35-45); pH 7.47 (7.35-7.45)
[2020-05-16 08:48] LABS: Base Excess -2 mmol/L (-2 to +2); Bicarbonate 22.1 mmol/L (22-26); SO2 98 % (95-99); Total Carbon Dioxide 23 mmol/L
--- NOTE | 2020-05-16 09:08 | PCM.CON.CC ---
Problem List (1) Respiratory failure requiring intubation Status: Acute (2) Acute respiratory failure with hypoxia Status: Acute (3) History of seizure Status: Chronic (4) Tobacco use Status: Chronic (5) Anxiety and depression Status: Chronic (6) Neck pain Status: Acute (7) Migraine Status: Chronic Qualifiers: Migraine type: unspecified Status migrainosus presence: without status migrainosus Intractability: not intractable Qualified Code(s): G43.909 - Migraine, unspecified, not intractable, without status migrainosus Reason for Consult Date of Consultation: 05/16/20 Reason for Consultation: Respiratory failure History of Present Illness: The patient is a 29 year old F, with past medical history listed below, who presented with [facility] on 05/16/2020 secondary to acute onset of shortness of breath. Patient reportedly had gone drinking at a friend's with approximately 10 other people. Patient reportedly was found in the yard by EMS saturating 85% on room air. Patient was placed on a nonrebreather and transferred to the emergency department for evaluation. Patient reportedly had denied any fevers, chills or chest pain. Patient was given aerosols in route to the hospital, but still had conversational dyspnea on presentation. In the ER, patient's vital signs were stable, but she was noted to be in moderate respiratory distress. Patient reportedly had expiratory wheezing bilaterally, but no mention of paradoxical respiratory effort. Patient was given multiple aerosols without improvement and reportedly agreed to intubation. Patient was intubated using rapid sequence and admitted to the intensive care unit for further evaluation. Patient did have a COVID test by nasal pharyngeal approach while in the ER. On my evaluation in the morning, patient was on 30 of propofol and 100 mcg of fentanyl by drip. Patient is interactive despite being intubated and able to provide some history. Patient is communicating by writing. Patient reportedly was out with 10 friends last evening at a personal residence. Patient had reported developing diarrhea, body aches, headache and loss of smell yesterday. Patient reported that many people at the green party were using ecstasy and she was concerned that somebody may have tried to slip her dose. Patient reports that she has had seizures in the past associated with trying ecstasy. Patient lives with her boyfriend and he is reportedly been of good health. Patient reports that her sister overdosed on drugs in the past, so I do not do them. Patient is currently only reporting throat pain and body aches. Patient has reported some increased pain in the right thigh with radiation towards the toes. Patient denies any trauma. Patient denies any productive cough. Review of systems otherwise negative from a constitutional, HEENT, respiratory, cardiovascular, GI, genitourinary, musculoskeletal, skin, neurologic, psychiatric and hematologic system unless stated above. Past Medical History Past Medical History (Chronic Problems): Chronic Problems History of seizure (Chronic) Tobacco use (Chronic) Anxiety and depression (Chronic) Previous delivery, delivered (Chronic) Migraine (Chronic) Allergies methylphenidate HCl [From Ritalin] Allergy (Severe, Verified 05/16/20 01:54) SEIZURES seizures lactose Allergy (Verified 05/16/20 01:54) Upset Stomach metoclopramide [From Reglan] Allergy (Verified 05/16/20 01:54) Unknown tramadol Adverse Reaction (Verified 05/16/20 01:54) Vomiting Home Medications: Ambulatory Orders Medication Instructions Recorded Benzoyl Peroxide [Bp Wash] 113 gm TP DAILY 02/15/20 Albuterol Inhaler [Ventolin Hfa 1 - 2 puff INHALATION Q4H PRN PRN 05/16/20 (SP)] Surgical History: tonsillectomy, - - Tonsillectomy, hemorrhoidectomy, BLTL, x 3, appendectomy. 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 Paternal History Items: Pulmonary Disease - Patient with a paternal family history of asthma. Review of Systems Comment: See HPI Patient Problems: Active and Suspected Problems Status asthmaticus (Acute) Respiratory failure requiring intubation (Acute) Acute respiratory failure with hypoxia (Acute) Objective: Chest x-ray was personally reviewed and shows no acute infiltrate. No pulmonary function test is available for review. Peak airway pressures on the ventilator are currently in the low 20s. Good ventilator synchrony noted. - Physical Exam Vitals/I&O's: Vital Signs Temp Pulse Resp BP Pulse Ox 36.4 C L 87 15 111/72 98 05/16/20 06:30 05/16/20 07:03 05/16/20 07:03 05/16/20 06:30 05/16/20 07:03 Oxygen Delivery Method Mechanical Ventilator Weight: 61.5 kg Body Mass Index (BMI) 23.3 Finger Stick Blood Glucose 84 Intake and Output for Last 24 Hours 05/14/20 05/15/20 05/16/20 23:59 23:59 23:59 Intake Total 112.77 / 112.77 Balance 112.77 / 112.77 General: Alert, Cooperative, No apparent distress, - - Appears stated age HEENT: Atraumatic, PERRLA, EOMI, Normocephalic, - - Slight scleral injection without icterus Oral: Moist Mucosa, No Gingival or Mucosal Lesions/ Ulcerations Neck: Supple, No JVD, No Nodes, Trachea Midline Lungs: Clear to auscultation, Normal air movement, No rhonchi, No wheeze, No rales, - - Symmetric expansion. Cardiovascular: Regular Rhythm, Normal S1, Normal S2, No murmurs, No rub noted, No Gallop, Tachycardic Abdomen: Bowel Sounds Present, Soft, Non Tender, Non-Distended, Obese Extremities: No clubbing, No cyanosis, No edema, Capillary Refill Less than 3 Seconds Skin: No rashes, No breakdown Musculoskeletal: No Tenderness to Palpation of Joints or Extremities Lymphatic: No Cervical, Supraclavicular, or Inguinal Adenopathy Neurological: Cranial nerves II-XII grossly intact, Neuro grossly intact, Motor Exam 5/5 strength throughout Psych/Mental Status: Anxious Microbiology Past 72 Hours 05/16/20 02:45 Urine Catheter - Bear Streptococcus pneumoniae Antigen (M - Final 05/16/20 02:45 Urine Catheter - Bear Legionella Antigen - Final 05/16/20 02:57 Mucosa - Nose Respiratory Panel (PCR) - Final Laboratory Results 05/16/20 02:00: WBC 12.6 H, RBC 4.70, Hgb 14.3, Hct 42.7, MCV 90.9, MCH 30.4, MCHC 33.5, RDW Std Deviation 42.1, RDW Coeff of Eulogio 12.6, Plt Count 244, MPV 10.5, Immature Gran % (Auto) 0.400, Neut % (Auto) 62.8, Lymph % (Auto) 30.8, [place] % (Auto) 4.7, Eos % (Auto) 0.9, Baso % (Auto) 0.4, Absolute Neuts (auto) 7.9 H, Absolute Lymphs (auto) 3.89, Nucleated RBC % 0 05/16/20 02:00: D-Dimer Quant (PE/DVT) <= 0.27 05/16/20 02:00: Sodium 141, Potassium 3.9, Chloride 106, Carbon Dioxide 27.0, Anion Gap 8, BUN 7, Creatinine 0.83, Estim Creat Clear Calc 84.81, Est GFR (MDRD) Af Amer 102, Est GFR (MDRD) Non-Af 85, BUN/Creatinine Ratio 8.4 L, Glucose 96, Calcium 9.5 05/16/20 02:00: Sodium 140, Potassium 3.8, Chloride 103, Carbon Dioxide 26.0, Anion Gap 11, BUN 7, Creatinine 0.84, Estim Creat Clear Calc 83.80, Est GFR (MDRD) Af Amer 101, Est GFR (MDRD) Non-Af 84, BUN/Creatinine Ratio 8.3 L, Glucose 96, Calcium 9.2, Magnesium 2.1, Total Bilirubin 0.40, AST 29, ALT 27, Alkaline Phosphatase 65, Total Protein 8.1, Albumin 4.5, Globulin 3.6, Albumin/Globulin Ratio 1.2 05/16/20 02:43: Lactic Acid 2.8 H* 05/16/20 02:45: Urine Opiates Screen NEGATIVE, Urine Methadone Screen NEGATIVE, Ur Barbiturates Screen NEGATIVE, Ur Phencyclidine Scrn NEGATIVE, Ur Amphetamines Screen POSITIVE H, U Methamphetamin-MDMA NEGATIVE, U Benzodiazepines Scrn NEGATIVE, Urine Cocaine Screen NEGATIVE, U Cannabinoids Screen NEGATIVE, Ur Drug Screen Comment 05/16/20 02:57: COVID-19 ([place]) Negative 05/16/20 03:25: Ethyl Alcohol 104.0 05/16/20 05:25: Specimen Type ART, Sample Site L RADIAL, pH 7.47 H, Bicarbonate Actual 22.1, Total CO2 23, Base Excess -2, O2 Saturation 98, O2 % 21, ABG pCO2 30.3 L, ABG pO2 97, Lenin Test POS, Respiration Rate 14, O2 Delivery Device ADULT VENTILATOR, Vent Mode A-C, Tidal Volume 450, POC PEEP 5 05/16/20 05:40: WBC 13.9 H, RBC 4.48, Hgb 13.7, Hct 40.8, MCV 91.1, MCH 30.6, MCHC 33.6, RDW Std Deviation 42.1, RDW Coeff of Eulogio 12.6, Plt Count 206, MPV 10.3, Immature Gran % (Auto) 0.500, Neut % (Auto) 93.6 H, Lymph % (Auto) 5.3 L, [place] % (Auto) 0.5, Eos % (Auto) 0.0, Baso % (Auto) 0.1, Absolute Neuts (auto) 13.0 H, Absolute Lymphs (auto) 0.74 L, Nucleated RBC % 0 05/16/20 05:40: Lactic Acid 3.0 H* Current Medications Acetaminophen (Tylenol) 650 mg RECTAL Q4H PRN PRN PRN Reason: Pain Score 1-10/Temp > 100.7 F Acetaminophen (Tylenol) 650 mg PO Q6H PRN PRN PRN Reason: Pain Score 1-10/Temp > 100.7 F Albuterol Sulfate (Ventolin Aerosols) 2.5 mg INHALATION Q2H PRN PRN PRN Reason: Dyspnea, wheezing Albuterol/Ipratropium (Duoneb) 3 ml INHALATION Q4HWA.RT [facility] Last Admin: 05/16/20 07:03 Dose: 3 ml Documented by: Chlorhexidine Gluconate () 15 ml PO BID [facility] Enoxaparin Sodium (Lovenox) 40 mg SC DAILY [facility] Hydralazine HCl (Apresoline Iv) 10 mg IV Q4H PRN PRN PRN Reason: SBP > 160 Fentanyl Citrate 1,000 mcg/ (Sodium Chloride) 100 mls @ 2.5 mls/hr CONT INF .Q40H [facility]; Protocol Last Titration: 05/16/20 07:15 Dose: 150 mcg/hr, 15 mls/hr Documented by: Propofol (Diprivan) 1,000 mg in 100 mls @ 3.912 mls/hr CONT INF .Q12H [facility]; Protocol Last Titration: 05/16/20 07:00 Dose: 40 mcg/kg/min, 15.6 mls/hr Documented by: Sodium Chloride () 250 mls @ 15 mls/hr IV .[id number] PRN PRN Reason: Saline Flush Sodium Chloride () 250 mls @ 15 mls/hr IV .[id number] PRN PRN Reason: Additional IVPB Infusion Sodium Chloride () 1,000 mls @ 125 mls/hr IV .Q8H [facility] Last Admin: 05/16/20 06:28 Dose: 125 mls/hr Documented by: Famotidine 20 mg/ Sodium (Chloride) 10 mls @ 300 mls/hr IV Q12 [facility] Last Infusion: 05/16/20 07:00 Dose: Infused Documented by: Magnesium Hydroxide (Milk Of Magnesia) 30 ml PO DAILY PRN PRN PRN Reason: Constipation Methylprednisolone (Solu-Medrol) 40 mg IV Q8 [facility] Last Admin: 05/16/20 06:31 Dose: 40 mg Documented by: Ondansetron HCl (Zofran) 4 mg IV Q8H PRN PRN PRN Reason: NAUSEA/VOMITING Prochlorperazine Edisylate (Compazine Iv) 5 mg IV Q4H PRN PRN PRN Reason: Breakthrough Nausea/Vomiting Psyllium Hydrophilic Mucilloid (Metamucil) 1 packet PO DAILY PRN PRN PRN Reason: Constipation Senna/Docusate Sodium (Senokot-S, Isabelle-Colace) 2 tablet PO BID PRN PRN PRN Reason: Constipation Sodium Chloride () 10 - 40 ml IV UD PRN PRN Reason: SALINE FLUSH Clinical Impression(s) from Imaging Studies Chest X-Ray 05/16/20 01:54 IMPRESSION: 1. Appropriate positioning of supportive devices. 2. No acute cardiopulmonary disease. Electronically Signed: Junaid Gallardo MD at 3:17 EDT Tel , Service support , Assessment/Plan Active and Suspected Problems Status asthmaticus (Acute) Respiratory failure requiring intubation (Acute) Acute respiratory failure with hypoxia (Acute) RECOMMENDATIONS: 1. Obtain lower extremity Dopplers 2. Consult infectious disease 3. Possible extubation later today following leak test and spontaneous breathing trial 4. Continue steroids and bronchodilators for now 5. Possible acceleration of anticoagulation pending Doppler results IMPRESSIONS: 1. Acute hypoxic respiratory failure Exact etiology is unclear at this time. Patient is a reported asthmatic, but peak airway pressures on the vent are low despite less than 24 hours of steroid therapy and oxygenation is back to normal. This makes an asthma exacerbation diagnosis questionable. D-dimer was negative. Other differential would include: Flash pulmonary edema, pulmonary embolism, laryngospasm, angioedema, COVID-19. Patient is reporting some symptomatology consistent with COVID-19, but initial screen was negative. Will consult infectious disease for recommendations. Anticipate need for endobronchial washing for repeat testing, but timing is unclear. We will continue with precautions for now. Patient obviously has not been using recommended precautions. Patient is reporting right thigh discomfort. Will obtain lower extremity Dopplers. 2. Alcohol use/questionable drug history Patient with positive alcohol level on presentation, but not enough to lead to respiratory depression. Patient is reporting no illicit drug use, but is positive for methamphetamines. Patient is not showing signs of withdrawal at this time. Patient does have high tolerance for propofol and fentanyl despite reported abstinence of other drugs. Addendum 3 PM: Discussed with infectious disease. Low clinical suspicion for COVID-19. Patient was taken out of precautions. Patient did do a 30-minute spontaneous breathing trial and is tolerating well. Patient was noted to have a leak at the bedside and will be extubated. Patient has been tolerating room air through the day. TIME: 45 minutes critical care time spent addressing patient's acute hypoxic respiratory failure, review of all data and collaboration with care team (8 AM to 9:20 AM, 2 PM to 3 PM) [phone] [id number] Critical care first hour
--- NOTE | 2020-05-16 09:20 | VDLE_ITS ---
Reason For Study: Elevated D-dimer RIGHT LEFT GSV is normal. GSV is normal. FV is compressible, spontaneous, phasic, CFV is compressible, spontaneous, phasic, competent and demonstrates normal competent, and demonstrates normal augmentation. augmentation. POP V is compressible, spontaneous, phasic, FV is compressible, spontaneous, phasic, competent and demonstrates normal competent and demonstrates normal augmentation. augmentation. T/P Trunk is compressible. POP V is compressible, spontaneous, phasic, PTV is compressible. competent and demonstrates normal RT PerV is compressible. augmentation. Unable to visualize right CFV and SFJ due to T/P Trunk is compressible. placement of catheter sticker. PTV is compressible. Procedure LT PerV is compressible. Exam performed portable in ICU/CCU. A preliminary report was called and/or faxed to Cornel DIA[facility]. Interpretation Summary No evidence for acute deep venous thrombosis bilateral lower extremities with patent and compressible bilateral great saphenous veins. Specific limitation of exam inability to investigate the right common femoral and saphenofemoral junction secondary to overlying dressing Ordering Physician: Henry Umanzor Referring Physician: Digna Estrada Performed By: Joellen Lubin RVT
--- NOTE | 2020-05-16 09:45 | CASEMGMT ---
RN CM NOTE: Participated in ICU interdisciplinary rounds. Patient intubated. On Propofol and Fentanyl gtts. Per Dr Umanzor, may attempt extubation later today. RN CM assessment deferred at this time. CM will continue to follow. Lawrence BSN RN CM
[2020-05-16 09:46] LABS: Lactic Acid 1.9 mmol/L (0.4-1.9)
[2020-05-16 09:48] LABS: Reflex Lactate? Y
[2020-05-16] MEDS: Enoxaparin 40 MG/0.4 ML Syringe SC (10:01)
[2020-05-16] MEDS: Chlorhexidine 15 ML PO (10:01)
--- NOTE | 2020-05-16 14:27 | CON.PCM_ITS ---
Problem List (1) Respiratory failure requiring intubation Status: Acute Reason for Consult: suspected covid Consulted by: Dr. Umanzor History of Present Illness: The patient is a 29 year old F with h/o asthma, presented to ED with dyspnea, throat tightening. Had been at a constitution party, concern was someone had given her ecstacy. She had been feeling fine the prior day. Reported some fever, diarrhea, loss of smell, aches. On vent, now feeling ok but wants the tube out. Reports sense of smell is normal now. No fever here. Full ROS Performed and neg except as noted above. - Medical History Past Medical History (Chronic Problems): Chronic Problems History of seizure (Chronic) Tobacco use (Chronic) Anxiety and depression (Chronic) Previous delivery, delivered (Chronic) Migraine (Chronic) Allergies/Adverse Reactions: Allergies methylphenidate HCl [From Ritalin] Allergy (Severe, Verified 05/16/20 01:54) SEIZURES seizures lactose Allergy (Verified 05/16/20 01:54) Upset Stomach metoclopramide [From Reglan] Allergy (Verified 05/16/20 01:54) Unknown tramadol Adverse Reaction (Verified 05/16/20 01:54) Vomiting Home Medications: Ambulatory Orders Medication Instructions Recorded Benzoyl Peroxide [Bp Wash] 113 gm TP DAILY 02/15/20 Albuterol Inhaler [Ventolin Hfa 1 - 2 puff INHALATION Q4H PRN PRN 05/16/20 (SP)] - Social History Tobacco Use: cigarettes Vital Signs Temp Pulse Resp BP Pulse Ox 98.4 F 59 L 14 103/63 97 05/16/20 11:00 05/16/20 13:22 05/16/20 13:22 05/16/20 11:00 05/16/20 13:22 Oxygen Delivery Method Mechanical Ventilator Weight: 61.5 kg Body Mass Index (BMI) 23.3 Finger Stick Blood Glucose 84 Microbiology Past 72 Hours 05/16/20 02:45 Streptococcus pneumoniae Antigen (M - Final Urine Catheter - Bear 05/16/20 02:45 Legionella Antigen - Final Urine Catheter - Bear 05/16/20 02:57 Respiratory Panel (PCR) - Final Mucosa - Nose Laboratory Tests Past 24 Hrs 05/16/20 05/16/20 05/16/20 02:00 02:00 02:00 WBC 12.6 H RBC 4.70 Hgb 14.3 Hct 42.7 MCV 90.9 MCH 30.4 MCHC 33.5 RDW Std Deviation 42.1 RDW Coeff of Eulogio 12.6 Plt Count 244 MPV 10.5 Immature Gran % (Auto) 0.400 Neut % (Auto) 62.8 Lymph % (Auto) 30.8 [place] % (Auto) 4.7 Eos % (Auto) 0.9 Baso % (Auto) 0.4 Absolute Neuts (auto) 7.9 H Absolute Lymphs (auto) 3.89 Nucleated RBC % 0 D-Dimer Quant (PE/DVT) <= 0.27 Specimen Type Sample Site pH Bicarbonate Actual Total CO2 Base Excess O2 Saturation O2 % ABG pCO2 ABG pO2 Lenin Test Respiration Rate O2 Delivery Device Vent Mode Tidal Volume POC PEEP Sodium 141 Potassium 3.9 Chloride 106 Carbon Dioxide 27.0 Anion Gap 8 BUN 7 Creatinine 0.83 Estim Creat Clear Calc 84.81 Est GFR (MDRD) Af Amer 102 Est GFR (MDRD) Non-Af 85 BUN/Creatinine Ratio 8.4 L Glucose 96 Lactic Acid Calcium 9.5 Magnesium Total Bilirubin AST ALT Alkaline Phosphatase Total Protein Albumin Globulin Albumin/Globulin Ratio Urine Opiates Screen Urine Methadone Screen Ur Barbiturates Screen Ur Phencyclidine Scrn Ur Amphetamines Screen U Methamphetamin-MDMA U Benzodiazepines Scrn Urine Cocaine Screen U Cannabinoids Screen Ur Drug Screen Comment Ethyl Alcohol COVID-19 ([place]) 05/16/20 05/16/20 05/16/20 02:00 02:43 02:45 WBC RBC Hgb Hct MCV MCH MCHC RDW Std Deviation RDW Coeff of Eulogio Plt Count MPV Immature Gran % (Auto) Neut % (Auto) Lymph % (Auto) [place] % (Auto) Eos % (Auto) Baso % (Auto) Absolute Neuts (auto) Absolute Lymphs (auto) Nucleated RBC % D-Dimer Quant (PE/DVT) Specimen Type Sample Site pH Bicarbonate Actual Total CO2 Base Excess O2 Saturation O2 % ABG pCO2 ABG pO2 Lenin Test Respiration Rate O2 Delivery Device Vent Mode Tidal Volume POC PEEP Sodium 140 Potassium 3.8 Chloride 103 Carbon Dioxide 26.0 Anion Gap 11 BUN 7 Creatinine 0.84 Estim Creat Clear Calc 83.80 Est GFR (MDRD) Af Amer 101 Est GFR (MDRD) Non-Af 84 BUN/Creatinine Ratio 8.3 L Glucose 96 Lactic Acid 2.8 H* Calcium 9.2 Magnesium 2.1 Total Bilirubin 0.40 AST 29 ALT 27 Alkaline Phosphatase 65 Total Protein 8.1 Albumin 4.5 Globulin 3.6 Albumin/Globulin Ratio 1.2 Urine Opiates Screen NEGATIVE Urine Methadone Screen NEGATIVE Ur Barbiturates Screen NEGATIVE Ur Phencyclidine Scrn NEGATIVE Ur Amphetamines Screen POSITIVE H U Methamphetamin-MDMA NEGATIVE U Benzodiazepines Scrn NEGATIVE Urine Cocaine Screen NEGATIVE U Cannabinoids Screen NEGATIVE Ur Drug Screen Comment Ethyl Alcohol COVID-19 ([place]) 05/16/20 05/16/20 05/16/20 02:57 03:25 05:25 WBC RBC Hgb Hct MCV MCH MCHC RDW Std Deviation RDW Coeff of Eulogio Plt Count MPV Immature Gran % (Auto) Neut % (Auto) Lymph % (Auto) [place] % (Auto) Eos % (Auto) Baso % (Auto) Absolute Neuts (auto) Absolute Lymphs (auto) Nucleated RBC % D-Dimer Quant (PE/DVT) Specimen Type ART Sample Site L RADIAL pH 7.47 H Bicarbonate Actual 22.1 Total CO2 23 Base Excess -2 O2 Saturation 98 O2 % 21 ABG pCO2 30.3 L ABG pO2 97 Lenin Test POS Respiration Rate 14 O2 Delivery Device ADULT VENTILATOR Vent Mode A-C Tidal Volume 450 POC PEEP 5 Sodium Potassium Chloride Carbon Dioxide Anion Gap BUN Creatinine Estim Creat Clear Calc Est GFR (MDRD) Af Amer Est GFR (MDRD) Non-Af BUN/Creatinine Ratio Glucose Lactic Acid Calcium Magnesium Total Bilirubin AST ALT Alkaline Phosphatase Total Protein Albumin Globulin Albumin/Globulin Ratio Urine Opiates Screen Urine Methadone Screen Ur Barbiturates Screen Ur Phencyclidine Scrn Ur Amphetamines Screen U Methamphetamin-MDMA U Benzodiazepines Scrn Urine Cocaine Screen U Cannabinoids Screen Ur Drug Screen Comment Ethyl Alcohol 104.0 COVID-19 ([place]) Negative 05/16/20 05/16/20 05/16/20 05:40 05:40 09:10 WBC 13.9 H RBC 4.48 Hgb 13.7 Hct 40.8 MCV 91.1 MCH 30.6 MCHC 33.6 RDW Std Deviation 42.1 RDW Coeff of Eulogio 12.6 Plt Count 206 MPV 10.3 Immature Gran % (Auto) 0.500 Neut % (Auto) 93.6 H Lymph % (Auto) 5.3 L [place] % (Auto) 0.5 Eos % (Auto) 0.0 Baso % (Auto) 0.1 Absolute Neuts (auto) 13.0 H Absolute Lymphs (auto) 0.74 L Nucleated RBC % 0 D-Dimer Quant (PE/DVT) Specimen Type Sample Site pH Bicarbonate Actual Total CO2 Base Excess O2 Saturation O2 % ABG pCO2 ABG pO2 Lenin Test Respiration Rate O2 Delivery Device Vent Mode Tidal Volume POC PEEP Sodium Potassium Chloride Carbon Dioxide Anion Gap BUN Creatinine Estim Creat Clear Calc Est GFR (MDRD) Af Amer Est GFR (MDRD) Non-Af BUN/Creatinine Ratio Glucose Lactic Acid 3.0 H* 1.9 Calcium Magnesium Total Bilirubin AST ALT Alkaline Phosphatase Total Protein Albumin Globulin Albumin/Globulin Ratio Urine Opiates Screen Urine Methadone Screen Ur Barbiturates Screen Ur Phencyclidine Scrn Ur Amphetamines Screen U Methamphetamin-MDMA U Benzodiazepines Scrn Urine Cocaine Screen U Cannabinoids Screen Ur Drug Screen Comment Ethyl Alcohol COVID-19 ([place]) - Other Studies Radiology: [] reviewed Other Studies: [] Route of nutrition/ use of supplements: [] Nutritional Intake: [] IV Site: [] Bear Catheter: [] - Physical Exam General: Alert, Cooperative HEENT: Atraumatic, PERRLA, EOMI Neck: Supple, No Nodes Lungs: Clear to auscultation, Normal air movement Cardiovascular: Regular rate, Regular Rhythm Abdomen: Soft, Non Tender, Non-Distended Extremities: No edema Skin: No rashes IV Site: Peripheral, without redness Musculoskeletal: No Tenderness to Palpation of Joints or Extremities Neurological: Cranial nerves II-XII grossly intact - Assessment/Plan Antibiotics: [] Assessment/Plan: [] Active and Suspected Problems Status asthmaticus (Acute) Respiratory failure requiring intubation (Acute) Acute respiratory failure with hypoxia (Acute) Covid neg. Resp pcr panel neg. Feeling better. No hypoxia, no changes on cxr, no fever here. Hypothermic on presentation, tox screen (+) amphetamines. Low suspicion for covid, ok to extubate and d/c isolation. Will follow, thank you, d/w Dr. Umanzor.
--- NOTE | 2020-05-16 14:30 | NURSING ---
Patient is awake and responds appropriately to questions. Sedation was placed on hold and patient started on SBT by RT Chandrika. Patient tolerated well, assessed at the bedside by Dr Umanzor. Verbal order received to extubate patient. Patient was subsequently extubated by RT Chandrika with this RN at the bedside and Dr Umanzor present in the ICU. Patient tolerated extubation without complication and maintained stable Vitals on room air. Will continue to monitor.
[2020-05-16] MEDS: proCHLORPERazine 10 MG/2 ML Vial 5 MG IV (17:46)
--- NOTE | 2020-05-16 19:55 | NURSING ---
Shelby catheter removed at this time, patient tolerated well. 125cc was removed from the shelby prior to D/C. Jolanta Malone RN, notified of removal at this time.
[2020-05-17] VITALS (21 sets, daily range): BP systolic 88–125; BP diastolic 43–65; PULSE 58–100; RESP 12–20; TEMP 36.4–36.9; O2SAT 94–98
[2020-05-17] MEDS: Ondansetron 4 MG/2 ML Vial IV (05:26)
[2020-05-17 05:40] LABS: Absolute Lymphocyte Count 0.96 X10^3/uL (0.83-4.51); Absolute Neutrophil Count 14.3 X10^3/uL (2.0-7.7); Basophil# 0.02 X10^3/uL; Basophil% 0.1 % (0-1); Hematocrit 36.3 % (37-47); Hemoglobin 12.1 g/dL (12.0-15.0); Lymphocyte # 0.96 X10^3/ul (4.0); Lymphocyte % 6.1 % (19-41); Mean Corp Hgb Conc 33.3 g/dL (32-36); Mean Corpuscular Hgb 30.9 pg (27.0-32.0); Mean Corpuscular Volume 92.8 fL (81-99); Mean Platelet Vol. 10.2 fl (6.2-12.0); Monocyte# 0.32 X10^3/uL; NRBC Flagged by Analyzer 0 % (0-5); Neutrophil # 14.33 X10^3/uL (2.7-7.7); Platelet Count 187 K/mm3 (150-450); RBC Distribution Width CV 13.1 % (11.6-14.6); RBC Distribution Width SD 43.9 fl (35.1-43.9); Red Blood Count 3.91 M/mm3 (4.2-5.4); White Blood Count 15.8 K/mm3 (4.4-11.0)
[2020-05-17] MEDS: 0.9% Normal Saline 1,000 ML 125 ML IV (05:57)
[2020-05-17 05:58] LABS: ALB/GLOB Ratio 1.1 RATIO (0.9-2.4); AST(SGOT) 13 U/L (15-37); Alanine Aminotransfer ALT/SGPT 19 U/L (13-56); Albumin, Serum 3.2 g/dL (3.2-5.0); Alkaline Phosphatase 54 U/L (45-117); Anion Gap 4 (5-15); BUN 11 mg/dL (7-18); BUN/Creat Ratio 17.9 RATIO (10-20); Calcium,Total 7.8 mg/dL (8.5-10.1); Chloride 108 mmol/L (98-107); Creatinine, Serum 0.62 mg/dL (0.55-1.02); EST Glomerular Filtration Rate 120 mL/min (>60); Est Glom Filt Rate - Afr Amer 145 mL/min (>60); Estimated Creatinine Clearance 113.53 ml/min; Globulin 2.8 g/dL (2.2-4.2); Glucose 123 mg/dL (74-106); Potassium 4.2 mmol/L (3.5-5.1); Sodium Level 138 mmol/L (136-145)
[2020-05-17] MEDS: Ipratropium/Albuterol Sulfate 3 ML AMPUL.NEB INHALATION ×3 (06:49→19:10)
--- NOTE | 2020-05-17 08:00 | PN_ITS ---
Patient Problems: Active and Suspected Problems Status asthmaticus (Acute) Respiratory failure requiring intubation (Acute) Acute respiratory failure with hypoxia (Acute) Reason for Visit: Follow-up on acute resp failure Subjective: Patient was seen and examined. She was extubated yesterday. Denied any progressive shortness of breath. Complaints of chest congestion and sore throat as wel as generalized weakness. No acute events overnight Vitals/I&O's: Vital Signs Temp Pulse Resp BP Pulse Ox 98.4 F 70 14 94/54 L 96 05/17/20 04:00 05/17/20 07:00 05/17/20 07:00 05/17/20 07:00 05/17/20 07:00 Oxygen Delivery Method Room Air Weight: 64.2 kg Body Mass Index (BMI) 23.3 Finger Stick Blood Glucose 84 Intake and Output for Last 24 Hours 05/15/20 05/16/20 05/17/20 23:59 23:59 23:59 Intake Total 2426.65 / 2618.32 1025.42 / 1025.42 Output Total 1225 / 1225 350 / 350 Balance 1201.65 / 1393.32 675.42 / 675.42 General: Alert, Oriented x3, Cooperative, No apparent distress HEENT: Atraumatic, PERRLA, EOMI, Normocephalic Oral: Moist Mucosa Neck: Supple Lungs: Clear to auscultation, Normal air movement Cardiovascular: Regular rate, Normal S1, Normal S2, No murmurs Abdomen: Bowel Sounds Present, Soft, Non Tender, Non-Distended, No Hepato-splen omegaly Extremities: Edema - trace bilateral leg edema Skin: No rashes Musculoskeletal: No Tenderness to Palpation of Joints or Extremities Lymphatic: No Cervical, Supraclavicular, or Inguinal Adenopathy Neurological: Cranial nerves II-XII grossly intact, Neuro grossly intact Psych/Mental Status: Normal Affect, Appropriate Microbiology Past 72 Hours 05/16/20 02:45 Urine Catheter - Bear Streptococcus pneumoniae Antigen (M - Final 05/16/20 02:45 Urine Catheter - Bear Legionella Antigen - Final 05/16/20 02:57 Mucosa - Nose Respiratory Panel (PCR) - Final Laboratory Results 05/16/20 05:25: Specimen Type ART, Sample Site L RADIAL, pH 7.47 H, Bicarbonate Actual 22.1, Total CO2 23, Base Excess -2, O2 Saturation 98, O2 % 21, ABG pCO2 30.3 L, ABG pO2 97, Lenin Test POS, Respiration Rate 14, O2 Delivery Device ADULT VENTILATOR, Vent Mode A-C, Tidal Volume 450, POC PEEP 5 05/16/20 09:10: Lactic Acid 1.9 05/17/20 05:20: WBC 15.8 H, RBC 3.91 L, Hgb 12.1, Hct 36.3 L, MCV 92.8, MCH 30.9, MCHC 33.3, RDW Std Deviation 43.9, RDW Coeff of Eulogio 13.1, Plt Count 187, MPV 10.2, Immature Gran % (Auto) 0.800, Neut % (Auto) 91.0 H, Lymph % (Auto) 6.1 L, [place] % (Auto) 2.0, Eos % (Auto) 0.0, Baso % (Auto) 0.1, Absolute Neuts (auto) 14.3 H, Absolute Lymphs (auto) 0.96, Nucleated RBC % 0 05/17/20 05:20: Sodium 138, Potassium 4.2, Chloride 108 H, Carbon Dioxide 26.0, Anion Gap 4 L, BUN 11, Creatinine 0.62, Estim Creat Clear Calc 113.53, Est GFR (MDRD) Af Amer 145, Est GFR (MDRD) Non-Af 120, BUN/Creatinine Ratio 17.9, Glucose 123 H, Calcium 7.8 L, Total Bilirubin 0.30, AST 13 L, ALT 19, Alkaline Phosphatase 54, Total Protein 6.0 L, Albumin 3.2, Globulin 2.8, Albumin/Globulin Ratio 1.1 Current Medications Acetaminophen (Tylenol) 650 mg RECTAL Q4H PRN PRN PRN Reason: Pain Score 1-10/Temp > 100.7 F Acetaminophen (Tylenol) 650 mg PO Q6H PRN PRN PRN Reason: Pain Score 1-10/Temp > 100.7 F Albuterol Sulfate (Ventolin Aerosols) 2.5 mg INHALATION Q2H PRN PRN PRN Reason: Dyspnea, wheezing Albuterol/Ipratropium (Duoneb) 3 ml INHALATION Q4HWA.RT SCOTT Last Admin: 05/17/20 06:49 Dose: 3 ml Documented by: Enoxaparin Sodium (Lovenox) 40 mg SC DAILY [facility] Last Admin: 05/16/20 10:01 Dose: 40 mg Documented by: Hydralazine HCl (Apresoline Iv) 10 mg IV Q4H PRN PRN PRN Reason: SBP > 160 Sodium Chloride () 250 mls @ 15 mls/hr IV .[id number] PRN PRN Reason: Saline Flush Sodium Chloride () 250 mls @ 15 mls/hr IV .[id number] PRN PRN Reason: Additional IVPB Infusion Sodium Chloride () 1,000 mls @ 125 mls/hr IV .Q8H [facility] Last Admin: 05/17/20 05:57 Dose: 125 mls/hr Documented by: Famotidine 20 mg/ Sodium (Chloride) 10 mls @ 300 mls/hr IV Q12 [facility] Last Infusion: 05/16/20 22:29 Dose: Infused Documented by: Magnesium Hydroxide (Milk Of Magnesia) 30 ml PO DAILY PRN PRN PRN Reason: Constipation Methylprednisolone (Solu-Medrol) 40 mg IV Q8 [facility] Last Admin: 05/17/20 05:25 Dose: 40 mg Documented by: Ondansetron HCl (Zofran) 4 mg IV Q8H PRN PRN PRN Reason: NAUSEA/VOMITING Last Admin: 05/17/20 05:26 Dose: 4 mg Documented by: Prochlorperazine Edisylate (Compazine Iv) 5 mg IV Q4H PRN PRN PRN Reason: Breakthrough Nausea/Vomiting Last Admin: 05/16/20 17:46 Dose: 5 mg Documented by: Psyllium Hydrophilic Mucilloid (Metamucil) 1 packet PO DAILY PRN PRN PRN Reason: Constipation Senna/Docusate Sodium (Senokot-S, Isabelle-Colace) 2 tablet PO BID PRN PRN PRN Reason: Constipation Sodium Chloride () 10 - 40 ml IV UD PRN PRN Reason: SALINE FLUSH STROKE Vital Signs/Narrative: Vital Signs Pulse Resp BP Pulse Ox 05/17/20 07:00 70 14 94/54 L 96 05/17/20 06:00 58 L 12 96/53 L 96 05/17/20 05:00 58 L 13 92/55 L 96 Medical Necessity - Tobacco Use Smoking Status: Current every day smoker Tobacco Use: Cigarettes Assessment/Plan All Active Problems Status asthmaticus (Acute) Respiratory failure requiring intubation (Acute) Acute respiratory failure with hypoxia (Acute) Xanax overdose (Acute) Neck pain (Acute) Back pain, acute (Acute) Request for sterilization (Acute) (Acute) RLQ abdominal pain (Acute) Knee joint pain (Acute) 1. Acute hypoxic respiratory failure secondary to #2, resolved 2. Acute on chronic asthma exacerbation, improved, will continue on breathing treatments DC Solumedrol Continue on po prednisone - will plan on short 5 days burst of prednisone 3. Anxiety/depression, not on meds 4. Nicotine dependence, on replacement 5. DVT PPx- on Lovenox [place] Inpatient E&M: 25298 Subs Hosp L2
--- NOTE | 2020-05-17 08:08 | PCM.PN.PUL ---
Patient Problems: Active and Suspected Problems Status asthmaticus (Acute) Respiratory failure requiring intubation (Acute) Acute respiratory failure with hypoxia (Acute) Subjective: The patient was seen and examined at the bedside this morning. Events from the last 24 hours have been reviewed. The patient is currently afebrile, hemodynamically stable and maintaining appropriate oxygen saturations on room air. She denies the presence of shortness of breath. Objective: The patient's most recent lab work, culture data and imaging studies have all been personally reviewed. Lower extremity Doppler study was negative for the presence of DVT. Infectious work-up has been unrevealing to date. - Physical Exam Vitals/I&O's: Vital Signs Temp Pulse Resp BP Pulse Ox 98.4 F 70 14 94/54 L 96 05/17/20 04:00 05/17/20 07:00 05/17/20 07:00 05/17/20 07:00 05/17/20 07:00 Oxygen Delivery Method Room Air Weight: 141 lb 8.588 oz Body Mass Index (BMI) 23.3 Finger Stick Blood Glucose 84 Intake and Output for Last 24 Hours 05/15/20 05/16/20 05/17/20 23:59 23:59 23:59 Intake Total 2426.65 / 2618.32 1025.42 / 1025.42 Output Total 1225 / 1225 350 / 350 Balance 1201.65 / 1393.32 675.42 / 675.42 General: Alert, Cooperative, No apparent distress HEENT: Atraumatic, Normocephalic Oral: Moist Mucosa, No Gingival or Mucosal Lesions/ Ulcerations Neck: Supple, No Nodes, Trachea Midline Lungs: Normal air movement, No rhonchi, No wheeze, No rales Cardiovascular: Regular rate, Regular Rhythm Abdomen: Bowel Sounds Present, Soft, Non Tender Extremities: No clubbing, No cyanosis, No edema Skin: No breakdown Musculoskeletal: No Muscle Wasting Lymphatic: No Cervical, Supraclavicular, or Inguinal Adenopathy Neurological: Neuro grossly intact Psych/Mental Status: Normal Affect, Appropriate Labs (Last 48 Hours) 05/16/20 05/16/20 05/16/20 02:00 02:00 02:00 WBC 12.6 H RBC 4.70 Hgb 14.3 Hct 42.7 MCV 90.9 MCH 30.4 MCHC 33.5 RDW Std Deviation 42.1 RDW Coeff of Eulogio 12.6 Plt Count 244 MPV 10.5 Immature Gran % (Auto) 0.400 Neut % (Auto) 62.8 Lymph % (Auto) 30.8 [place] % (Auto) 4.7 Eos % (Auto) 0.9 Baso % (Auto) 0.4 Absolute Neuts (auto) 7.9 H Absolute Lymphs (auto) 3.89 Nucleated RBC % 0 D-Dimer Quant (PE/DVT) <= 0.27 Specimen Type Sample Site pH Bicarbonate Actual Total CO2 Base Excess O2 Saturation O2 % ABG pCO2 ABG pO2 Lenin Test Respiration Rate O2 Delivery Device Vent Mode Tidal Volume POC PEEP Sodium 141 Potassium 3.9 Chloride 106 Carbon Dioxide 27.0 Anion Gap 8 BUN 7 Creatinine 0.83 Estim Creat Clear Calc 84.81 Est GFR (MDRD) Af Amer 102 Est GFR (MDRD) Non-Af 85 BUN/Creatinine Ratio 8.4 L Glucose 96 Lactic Acid Calcium 9.5 Magnesium Total Bilirubin AST ALT Alkaline Phosphatase Total Protein Albumin Globulin Albumin/Globulin Ratio Urine Opiates Screen Urine Methadone Screen Ur Barbiturates Screen Ur Phencyclidine Scrn Ur Amphetamines Screen U Methamphetamin-MDMA U Benzodiazepines Scrn Urine Cocaine Screen U Cannabinoids Screen Ur Drug Screen Comment Ethyl Alcohol COVID-19 ([place]) 05/16/20 05/16/20 05/16/20 02:00 02:43 02:45 WBC RBC Hgb Hct MCV MCH MCHC RDW Std Deviation RDW Coeff of Eulogio Plt Count MPV Immature Gran % (Auto) Neut % (Auto) Lymph % (Auto) [place] % (Auto) Eos % (Auto) Baso % (Auto) Absolute Neuts (auto) Absolute Lymphs (auto) Nucleated RBC % D-Dimer Quant (PE/DVT) Specimen Type Sample Site pH Bicarbonate Actual Total CO2 Base Excess O2 Saturation O2 % ABG pCO2 ABG pO2 Lenin Test Respiration Rate O2 Delivery Device Vent Mode Tidal Volume POC PEEP Sodium 140 Potassium 3.8 Chloride 103 Carbon Dioxide 26.0 Anion Gap 11 BUN 7 Creatinine 0.84 Estim Creat Clear Calc 83.80 Est GFR (MDRD) Af Amer 101 Est GFR (MDRD) Non-Af 84 BUN/Creatinine Ratio 8.3 L Glucose 96 Lactic Acid 2.8 H* Calcium 9.2 Magnesium 2.1 Total Bilirubin 0.40 AST 29 ALT 27 Alkaline Phosphatase 65 Total Protein 8.1 Albumin 4.5 Globulin 3.6 Albumin/Globulin Ratio 1.2 Urine Opiates Screen NEGATIVE Urine Methadone Screen NEGATIVE Ur Barbiturates Screen NEGATIVE Ur Phencyclidine Scrn NEGATIVE Ur Amphetamines Screen POSITIVE H U Methamphetamin-MDMA NEGATIVE U Benzodiazepines Scrn NEGATIVE Urine Cocaine Screen NEGATIVE U Cannabinoids Screen NEGATIVE Ur Drug Screen Comment Ethyl Alcohol COVID-19 ([place]) 05/16/20 05/16/20 05/16/20 02:57 03:25 05:25 WBC RBC Hgb Hct MCV MCH MCHC RDW Std Deviation RDW Coeff of Eulogio Plt Count MPV Immature Gran % (Auto) Neut % (Auto) Lymph % (Auto) [place] % (Auto) Eos % (Auto) Baso % (Auto) Absolute Neuts (auto) Absolute Lymphs (auto) Nucleated RBC % D-Dimer Quant (PE/DVT) Specimen Type ART Sample Site L RADIAL pH 7.47 H Bicarbonate Actual 22.1 Total CO2 23 Base Excess -2 O2 Saturation 98 O2 % 21 ABG pCO2 30.3 L ABG pO2 97 Lenin Test POS Respiration Rate 14 O2 Delivery Device ADULT VENTILATOR Vent Mode A-C Tidal Volume 450 POC PEEP 5 Sodium Potassium Chloride Carbon Dioxide Anion Gap BUN Creatinine Estim Creat Clear Calc Est GFR (MDRD) Af Amer Est GFR (MDRD) Non-Af BUN/Creatinine Ratio Glucose Lactic Acid Calcium Magnesium Total Bilirubin AST ALT Alkaline Phosphatase Total Protein Albumin Globulin Albumin/Globulin Ratio Urine Opiates Screen Urine Methadone Screen Ur Barbiturates Screen Ur Phencyclidine Scrn Ur Amphetamines Screen U Methamphetamin-MDMA U Benzodiazepines Scrn Urine Cocaine Screen U Cannabinoids Screen Ur Drug Screen Comment Ethyl Alcohol 104.0 COVID-19 ([place]) Negative 05/16/20 05/16/20 05/16/20 05:40 05:40 09:10 WBC 13.9 H RBC 4.48 Hgb 13.7 Hct 40.8 MCV 91.1 MCH 30.6 MCHC 33.6 RDW Std Deviation 42.1 RDW Coeff of Eulogio 12.6 Plt Count 206 MPV 10.3 Immature Gran % (Auto) 0.500 Neut % (Auto) 93.6 H Lymph % (Auto) 5.3 L [place] % (Auto) 0.5 Eos % (Auto) 0.0 Baso % (Auto) 0.1 Absolute Neuts (auto) 13.0 H Absolute Lymphs (auto) 0.74 L Nucleated RBC % 0 D-Dimer Quant (PE/DVT) Specimen Type Sample Site pH Bicarbonate Actual Total CO2 Base Excess O2 Saturation O2 % ABG pCO2 ABG pO2 Lenin Test Respiration Rate O2 Delivery Device Vent Mode Tidal Volume POC PEEP Sodium Potassium Chloride Carbon Dioxide Anion Gap BUN Creatinine Estim Creat Clear Calc Est GFR (MDRD) Af Amer Est GFR (MDRD) Non-Af BUN/Creatinine Ratio Glucose Lactic Acid 3.0 H* 1.9 Calcium Magnesium Total Bilirubin AST ALT Alkaline Phosphatase Total Protein Albumin Globulin Albumin/Globulin Ratio Urine Opiates Screen Urine Methadone Screen Ur Barbiturates Screen Ur Phencyclidine Scrn Ur Amphetamines Screen U Methamphetamin-MDMA U Benzodiazepines Scrn Urine Cocaine Screen U Cannabinoids Screen Ur Drug Screen Comment Ethyl Alcohol COVID-19 ([place]) 05/17/20 05/17/20 05:20 05:20 WBC 15.8 H RBC 3.91 L Hgb 12.1 Hct 36.3 L MCV 92.8 MCH 30.9 MCHC 33.3 RDW Std Deviation 43.9 RDW Coeff of Eulogio 13.1 Plt Count 187 MPV 10.2 Immature Gran % (Auto) 0.800 Neut % (Auto) 91.0 H Lymph % (Auto) 6.1 L [place] % (Auto) 2.0 Eos % (Auto) 0.0 Baso % (Auto) 0.1 Absolute Neuts (auto) 14.3 H Absolute Lymphs (auto) 0.96 Nucleated RBC % 0 D-Dimer Quant (PE/DVT) Specimen Type Sample Site pH Bicarbonate Actual Total CO2 Base Excess O2 Saturation O2 % ABG pCO2 ABG pO2 Lenin Test Respiration Rate O2 Delivery Device Vent Mode Tidal Volume POC PEEP Sodium 138 Potassium 4.2 Chloride 108 H Carbon Dioxide 26.0 Anion Gap 4 L BUN 11 Creatinine 0.62 Estim Creat Clear Calc 113.53 Est GFR (MDRD) Af Amer 145 Est GFR (MDRD) Non-Af 120 BUN/Creatinine Ratio 17.9 Glucose 123 H Lactic Acid Calcium 7.8 L Magnesium Total Bilirubin 0.30 AST 13 L ALT 19 Alkaline Phosphatase 54 Total Protein 6.0 L Albumin 3.2 Globulin 2.8 Albumin/Globulin Ratio 1.1 Urine Opiates Screen Urine Methadone Screen Ur Barbiturates Screen Ur Phencyclidine Scrn Ur Amphetamines Screen U Methamphetamin-MDMA U Benzodiazepines Scrn Urine Cocaine Screen U Cannabinoids Screen Ur Drug Screen Comment Ethyl Alcohol COVID-19 ([place]) Microbiology 05/16/20 02:45 Urine Catheter - Bear Streptococcus pneumoniae Antigen (M - Final 05/16/20 02:45 Urine Catheter - Bear Legionella Antigen - Final 05/16/20 02:57 Mucosa - Nose Respiratory Panel (PCR) - Final Clinical Impression(s) from Imaging Studies Chest X-Ray 05/16/20 01:54 IMPRESSION: 1. Appropriate positioning of supportive devices. 2. No acute cardiopulmonary disease. Electronically Signed: Junaid Gallardo MD at 3:17 EDT Tel , Service support , Chest X-Ray 05/16/20 05:55 IMPRESSION: No acute pulmonary process Stable appearance of the support lines and tubes Electronically Signed: Romaine Hercules MD at 10:42 EDT , Service support , Current Medications Acetaminophen (Tylenol) 650 mg RECTAL Q4H PRN PRN PRN Reason: Pain Score 1-10/Temp > 100.7 F Acetaminophen (Tylenol) 650 mg PO Q6H PRN PRN PRN Reason: Pain Score 1-10/Temp > 100.7 F Albuterol Sulfate (Ventolin Aerosols) 2.5 mg INHALATION Q2H PRN PRN PRN Reason: Dyspnea, wheezing Albuterol/Ipratropium (Duoneb) 3 ml INHALATION Q4HWA.RT [facility] Last Admin: 05/17/20 06:49 Dose: 3 ml Documented by: Enoxaparin Sodium (Lovenox) 40 mg SC DAILY [facility] Last Admin: 05/16/20 10:01 Dose: 40 mg Documented by: Hydralazine HCl (Apresoline Iv) 10 mg IV Q4H PRN PRN PRN Reason: SBP > 160 Sodium Chloride () 250 mls @ 15 mls/hr IV .[id number] PRN PRN Reason: Saline Flush Sodium Chloride () 250 mls @ 15 mls/hr IV .[id number] PRN PRN Reason: Additional IVPB Infusion Famotidine 20 mg/ Sodium (Chloride) 10 mls @ 300 mls/hr IV Q12 SCOTT Last Infusion: 05/16/20 22:29 Dose: Infused Documented by: Magnesium Hydroxide (Milk Of Magnesia) 30 ml PO DAILY PRN PRN PRN Reason: Constipation Methylprednisolone (Solu-Medrol) 40 mg IV Q8 SCOTT Last Admin: 05/17/20 05:25 Dose: 40 mg Documented by: Ondansetron HCl (Zofran) 4 mg IV Q8H PRN PRN PRN Reason: NAUSEA/VOMITING Last Admin: 05/17/20 05:26 Dose: 4 mg Documented by: Prochlorperazine Edisylate (Compazine Iv) 5 mg IV Q4H PRN PRN PRN Reason: Breakthrough Nausea/Vomiting Last Admin: 05/16/20 17:46 Dose: 5 mg Documented by: Psyllium Hydrophilic Mucilloid (Metamucil) 1 packet PO DAILY PRN PRN PRN Reason: Constipation Senna/Docusate Sodium (Senokot-S, Isabelle-Colace) 2 tablet PO BID PRN PRN PRN Reason: Constipation Sodium Chloride () 10 - 40 ml IV UD PRN PRN Reason: SALINE FLUSH Medical Necessity - Tobacco Use Smoking Status: Current every day smoker Tobacco Use: Cigarettes Assessment/Plan All Active Problems Status asthmaticus (Acute) Respiratory failure requiring intubation (Acute) Acute respiratory failure with hypoxia (Acute) Xanax overdose (Acute) Neck pain (Acute) Back pain, acute (Acute) Request for sterilization (Acute) (Acute) RLQ abdominal pain (Acute) Knee joint pain (Acute) RECOMMENDATIONS: 1. Continue bronchodilator therapy and prednisone, with plans to complete a 5-day burst. 2. Encourage incentive spirometer use while in bed. 3. The patient is medically stable for transfer out of the intensive care unit. Given her lack of further ICU or pulmonary needs, will sign off. IMPRESSIONS: 1. Acute hypoxic respiratory failure Exact etiology is unclear. Possibly related to illicit drug use. Regardless, the patient has been weaned from invasive mechanical ventilatory support. There is no readily identifiable evidence of a pulmonary infectious etiology. She is maintaining appropriate oxygen saturations on room air. Lower extremity Doppler studies were negative for DVT. Encourage incentive spirometer use while in bed. Mobilize patient as tolerated. 2. Alcohol use/questionable drug history Patient with positive alcohol level on presentation, but not enough to lead to respiratory depression. Patient is reporting no illicit drug use, but is positive for methamphetamines. Patient is not showing signs of withdrawal at this time. Will continue to monitor clinically. This note was generated with [employer] dictation software. It may contain incorrect words, spelling, and punctuation that were not noted in checking the note before signing. Inpatient E&M: 73405 Subs Hosp L3
--- NOTE | 2020-05-17 09:55 | PN.ID_ITS ---
Patient Problems: Active and Suspected Problems Status asthmaticus (Acute) Respiratory failure requiring intubation (Acute) Acute respiratory failure with hypoxia (Acute) Subjective: Still with some headache, aches, nausea. Breathing without trouble. Normal sense of smell. Boyfriend is not sick. - Physical Exam Vitals/I&O's: Vital Signs Temp Pulse Resp BP Pulse Ox 97.6 F L 67 16 102/57 L 96 05/17/20 08:00 05/17/20 09:00 05/17/20 09:00 05/17/20 09:00 05/17/20 09:00 Oxygen Delivery Method Room Air Weight: 64.2 kg Body Mass Index (BMI) 23.3 Finger Stick Blood Glucose 84 Intake and Output for Last 24 Hours 05/15/20 05/16/20 05/17/20 23:59 23:59 23:59 Intake Total 2426.65 / 2618.32 1321.25 / 1321.25 Output Total 1225 / 1225 650 / 650 Balance 1201.65 / 1393.32 671.25 / 671.25 General: Alert, Cooperative, No apparent distress Lungs: Clear to auscultation, Normal air movement Cardiovascular: Regular rate, Regular Rhythm Abdomen: Soft, Non Tender, Non-Distended Skin: No rashes Microbiology Past 72 Hours 05/16/20 02:45 Urine Catheter - Bear Streptococcus pneumoniae Antigen (M - Final 05/16/20 02:45 Urine Catheter - Bear Legionella Antigen - Final 05/16/20 02:57 Mucosa - Nose Respiratory Panel (PCR) - Final Laboratory Results 05/17/20 05:20: WBC 15.8 H, RBC 3.91 L, Hgb 12.1, Hct 36.3 L, MCV 92.8, MCH 30.9, MCHC 33.3, RDW Std Deviation 43.9, RDW Coeff of Eulogio 13.1, Plt Count 187, MPV 10.2, Immature Gran % (Auto) 0.800, Neut % (Auto) 91.0 H, Lymph % (Auto) 6.1 L, [place] % (Auto) 2.0, Eos % (Auto) 0.0, Baso % (Auto) 0.1, Absolute Neuts (auto) 14.3 H, Absolute Lymphs (auto) 0.96, Nucleated RBC % 0 05/17/20 05:20: Sodium 138, Potassium 4.2, Chloride 108 H, Carbon Dioxide 26.0, Anion Gap 4 L, BUN 11, Creatinine 0.62, Estim Creat Clear Calc 113.53, Est GFR (MDRD) Af Amer 145, Est GFR (MDRD) Non-Af 120, BUN/Creatinine Ratio 17.9, Glucose 123 H, Calcium 7.8 L, Total Bilirubin 0.30, AST 13 L, ALT 19, Alkaline Phosphatase 54, Total Protein 6.0 L, Albumin 3.2, Globulin 2.8, Albumin/Globulin Ratio 1.1 Current Medications Acetaminophen (Tylenol) 650 mg PO Q6H PRN PRN PRN Reason: Pain Score 1-10/Temp > 100.7 F Albuterol Sulfate (Ventolin Aerosols) 2.5 mg INHALATION Q2H PRN PRN PRN Reason: Dyspnea, wheezing Albuterol/Ipratropium (Duoneb) 3 ml INHALATION Q4HWA.RT [facility] Last Admin: 05/17/20 06:49 Dose: 3 ml Documented by: Enoxaparin Sodium (Lovenox) 40 mg SC DAILY [facility] Last Admin: 05/16/20 10:01 Dose: 40 mg Documented by: Famotidine (Pepcid) 20 mg PO BID [facility] Hydralazine HCl (Apresoline Iv) 10 mg IV Q4H PRN PRN PRN Reason: SBP > 160 Sodium Chloride () 250 mls @ 15 mls/hr IV .[id number] PRN PRN Reason: Saline Flush Sodium Chloride () 250 mls @ 15 mls/hr IV .[id number] PRN PRN Reason: Additional IVPB Infusion Magnesium Hydroxide (Milk Of Magnesia) 30 ml PO DAILY PRN PRN PRN Reason: Constipation Ondansetron HCl (Zofran) 4 mg IV Q8H PRN PRN PRN Reason: NAUSEA/VOMITING Last Admin: 05/17/20 05:26 Dose: 4 mg Documented by: Prednisone () 40 mg PO DAILY@0800 [facility] Prochlorperazine Edisylate (Compazine Iv) 5 mg IV Q4H PRN PRN PRN Reason: Breakthrough Nausea/Vomiting Last Admin: 05/16/20 17:46 Dose: 5 mg Documented by: Psyllium Hydrophilic Mucilloid (Metamucil) 1 packet PO DAILY PRN PRN PRN Reason: Constipation Senna/Docusate Sodium (Senokot-S, Isabelle-Colace) 2 tablet PO BID PRN PRN PRN Reason: Constipation Sodium Chloride () 10 - 40 ml IV UD PRN PRN Reason: SALINE FLUSH Medical Necessity - Tobacco Use Smoking Status: Current every day smoker Tobacco Use: Cigarettes Route of nutrition/ use of supplements: [] Nutritional Intake: [] IV Site: [] Bear Catheter: [] - Assessment/Plan Antibiotics: [] Assessment/Plan: [] Active and Suspected Problems Status asthmaticus (Acute) Respiratory failure requiring intubation (Acute) Acute respiratory failure with hypoxia (Acute) Covid neg. Resp pcr panel neg. Feeling better. No hypoxia, no changes on cxr, no fever here. Hypothermic on presentation, tox screen (+) amphetamines. Out of isolation, off vent. Ok for discharge home from my perspective. Will follow as needed, d/w Dr. Toussaint and Dr. Sr.
[2020-05-17] MEDS: Enoxaparin 40 MG/0.4 ML Syringe SC (10:23)
--- NOTE | 2020-05-17 11:32 | CASEMGMT ---
EMILY OLVERA assessment: Face to Face with patient for initial transition planning/care coordination assessment. EMILY OLVERA introduced self and role at [facility], pt voices understanding and consents to assessment at this time. Pt is sitting up in bed in no distress at this time. Pt is A/Ox4 at this time and answers all questions appropriately at this time. Care providers, pharmacy, and demographics verified/updated at this time. Presentation: Pt brought in by EMS for difficulty breathing- Hx asthma Admitting dx: Acute hypoxic resp failure, Asthma exac PCP: Natalie Specialists: Pt states no current specialists. Preferred Pharmacy: [facility] Insurance: [facility] Prescription Benefit: [facility] Living Will/HPOA: Pt states does not have LW/HPOA and declines AD info at this time. LNOK: Camille Ayoub, sig other Living Arrangements: Pt states lives with sig other in apartment and states no concerns at home at this time. Pt states is independent with ADL's. Transportation: Pt states drives self and states no transportation concerns at this time. DME/HHC: Pt states has a nebulizer and states has the meds that she needs but states has not been keeping up with her asthma maintenance meds as she should. Pt states no hx of HHC or SNF in the past. Pt states no concerns with going home at time of discharge. Pt states is currently laid off. Pt states does smoke cigarettes but plans to quit at this time and declines smoking cessation info at this time. Pt states drinks ETOH occasionally and denies recreational drug use. Pt states no further concerns/needs at this time. CM to follow for any further discharge planning/needs. Advised pt to ask for CM if any further questions/concerns/needs arise, voices understanding. Pt Goal: Home Plan[place] EMILY OLVERA
[2020-05-17] MEDS: proCHLORPERazine 10 MG/2 ML Vial 5 MG IV (11:39)
[2020-05-17] MEDS: Acetaminophen 325 MG Tablet 650 MG PO (11:43)
[2020-05-17] MEDS: predniSONE 20 MG Tablet 40 MG PO (11:43)
[2020-05-18 03:15] VITALS: PULSE 65
[2020-05-18 04:00] VITALS: BP 109/61; PULSE 71; RESP 17; TEMP 36.6; O2SAT 99
[2020-05-18] MEDS: Acetaminophen 325 MG Tablet 650 MG PO (05:20)
[2020-05-18 06:48] VITALS: PULSE 59
[2020-05-18] MEDS: predniSONE 20 MG Tablet 40 MG PO (07:31)
[2020-05-18] MEDS: Ipratropium/Albuterol Sulfate 3 ML AMPUL.NEB INHALATION (07:32)
[2020-05-18 07:33] VITALS: PULSE 78; RESP 18
--- NOTE | 2020-05-18 07:51 | PCM.DC ---
- Discharge Diagnoses Current Active Problems: Current Active and Chronic Problems Status asthmaticus (Acute) Respiratory failure requiring intubation (Acute) Acute respiratory failure with hypoxia (Acute) History of seizure (Chronic) Tobacco use (Chronic) Anxiety and depression (Chronic) Reason(s) for Visit for Discharge Instructions: Shortness of breath You will use the following diet at home:: Regular Your food should be the consistency of: Regular Your liquids should be the consistency of: Regular/Thin Discharge Activity: Return to Normal Activity Additional Instructions: Complete your prednisone. Continue to use your inhaler as needed for shortness of breath Allergies/Adverse Reactions: Allergies methylphenidate HCl [From Ritalin] Allergy (Severe, Verified 05/16/20 01:54) SEIZURES seizures lactose Allergy (Verified 05/16/20 01:54) Upset Stomach metoclopramide [From Reglan] Allergy (Verified 05/16/20 01:54) Unknown tramadol Adverse Reaction (Verified 05/16/20 01:54) Vomiting Medications to take at Discharge Benzoyl Peroxide [Bp Wash] 113 gm TP DAILY 02/15/20 Albuterol Inhaler [Ventolin Hfa] 1 - 2 puff INHALATION Q4H PRN PRN 05/16/20 predniSONE tablet 40 mg PO DAILY@0800 3 Days #3 tab 05/18/20 The following prescriptions were given: predniSONE tablet 40 mg PO DAILY@0800 3 Days #3 tab Transmission Status: Pending to [id number] Primary Care Physician: Digna Estrada MD [Primary Care Provider] - Please follow up with your Primary Care Physician in: within 1-2 weeks Test Results: Test results from this visit will be discussed in further detail at your follow-up appointment, if applicable. Proposed Discharge Date: 05/18/20
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
[2020-05-18 08:00] VITALS: BP 110/60; PULSE 80; RESP 18; TEMP 36.6; O2SAT 99
[2020-05-18 08:21] VITALS: O2SAT 98; O2SAT 99
--- NOTE | 2020-05-19 15:15 | CASEMGMT ---
RN CM Discharge Follow-up Phone Call: LUIS: 13 Strata: 3 Call Date: 05/19/20 Discharge Date: 05/18/2020 Time of Call: 1515 Duration: 1 min Admitting Diagnosis: Acute hypoxic resp failure, asthma RN CM attempted to complete follow-up phone call after recent hospitalization. No answer, mailbox full and unable to leave message.
== END 2020-05-18 08:55 | disposition home or self-care (01) | DRG 141 ==
LOC: ED 02:56 → ICU 03:16 → PCU 05-17 10:19
PROVIDERS: Admitting Provider Family Medicine; Emergency Provider Emergency Medicine; PCP Internal Medicine; Visit Provider Internal Medicine
DX: J45.52 Severe persistent asthma with status asthmaticus (principal); J96.01 Acute respiratory failure with hypoxia; F17.210 Nicotine dependence, cigarettes, uncomplicated; G43.909 Migraine, unspecified, not intractable, without status migrainosus; F41.9 Anxiety disorder, unspecified; F32.9 Major depressive disorder, single episode, unspecified; F15.90 Other stimulant use, unspecified, uncomplicated; F10.99 Alcohol use, unspecified with unspecified alcohol-induced disorder; Y90.9 Presence of alcohol in blood, level not specified
CPT/HCPCS: 31500; 31720; 36600; 51702; 71045; 80048; 80053; 80307; 80320; 82803; 83605; 83735; 85025; 85379; 87040; 87449; 87633; 87635; 93970; 94002; 94640; 94799; 97802; 97803; 99251; 99285; 99406; J7030; A4216; G0463; G0480; J2405; J3010; J3490; U0003

== ENCOUNTER 2020-05-19 19:18 | Emergency (ER) | payer MEDICAID, SELFPAY ==
[2020-05-16 08:29] VITALS: BMI 23.3
[2020-05-19 19:20] VITALS: BP 124/64; PULSE 90; RESP 18; TEMP 36.9; O2SAT 99; BMI 24.3
== END 2020-05-19 20:05 | disposition left against medical advice (07) ==
LOC: ED 20:07
PROVIDERS: Emergency Provider Emergency Medicine; PCP Internal Medicine
DX: Z53.21 Procedure and treatment not carried out due to patient leaving prior to being seen by health care provider (principal)
CPT/HCPCS: 99281

== ENCOUNTER 2020-08-27 19:19 | Emergency (ER) | payer MEDICAID, SELFPAY ==
[2020-08-27 19:20] VITALS: BP 119/75; PULSE 88; RESP 16; TEMP 36.3; O2SAT 100; BMI 26.2
--- NOTE | 2020-08-27 19:38 | ED.VISSUMM ---
- ER Visit Summary Date of Service: 08/27/20 Chief Complaint: Vaginal bleeding History of Present Illness: The patient is a [address] Cosme. She is a G5, P2 who reports her last menstrual period was July 06. She states that she took 2 test last week and they were positive. She has cramping pelvic pain that began yesterday. Is 10 on 10 at worst and 6 out of 10 currently. Nothing makes this better or worse. She reports she has vaginal bleeding that began just prior to coming emerge department today. She reports that there were clots in the toilet. She is not wearing a pad. She denies any current bleeding. Patient reports she does have a history of an ectopic was that was treated with methotrexate. States that this does not feel like that. Physical Examination: Vitals: Stable. Afebrile. General: Well-nourished and well-developed. Head: Normocephalic atraumatic. Neck: Supple, no lymphadenopathy. No JVD. Nontender. Cardiovascular: Regular rate and rhythm. No murmurs. Respiratory: No respiratory distress. Clear to auscultation bilaterally. Abdominal: Soft, nontender, mild left lower quadrant tenderness to palpation, normal bowel sounds. No guarding, rebound, or peritoneal signs. Pelvic: Refused. Back: Nontender. Extremities: Nontender, no edema. Skin: Normal color, no rash. Neurologic: Alert and oriented ?3. Cranial nerves II through XII are intact. Normal strength and sensation. Psych: Normal affect. Test Results: Chart review shows patient's blood type is A positive. She has refused labs and ultrasound. Emergency Department Course and Treatment: Patient reports that she has a 4-year-old at home who has underlying medical conditions. She is concerned that she will get Covid if she stays here. She is refused any work-up. She does understand the risk of a ectopic and potential life-threatening illness if this ruptures. She would still like to go home with follow-up with her OB next week. Treatment Plan: Patient will be discharged AMA with instructions to return the emerge department for any worsening symptoms. Disposition: To home in improved and stable condition. Impression: 1. Vaginal bleeding. 2. Reported positive test. 3. Left AGAINST MEDICAL ADVICE. This note was generated with [employer] software. It may contain incorrect words, spelling, and punctuation that were not noted in review of the chart prior to signing ED Disposition - Plan for ED Patient: Disposition: Against Medical Advice Instructions: ED ECTOPIC RULE OUT Referrals: Ron Cosme MD [STAFF PHYSICIAN] - As soon as possible
== END 2020-08-27 19:51 | disposition left against medical advice (07) ==
LOC: ED 19:51
PROVIDERS: Emergency Provider Emergency Medicine; PCP Internal Medicine
DX: N93.9 Abnormal uterine and vaginal bleeding, unspecified (principal); R10.2 Pelvic and perineal pain; Z53.21 Procedure and treatment not carried out due to patient leaving prior to being seen by health care provider; F17.200 Nicotine dependence, unspecified, uncomplicated
CPT/HCPCS: 99282

== ENCOUNTER → 2021-07-26 14:57 | Outpatient (CLI) | payer OTHER, MEDICAID, SELFPAY ==
--- NOTE | 2021-07-26 15:04 | VDLE_ITS ---
Reason For Study: Contusion Rt knee RIGHT GSV is normal. CFV is compressible, spontaneous, phasic, competent and demonstrates normal augmentation. FV is compressible, spontaneous, phasic, competent and demonstrates normal augmentation. POP V is compressible, spontaneous, phasic, competent and demonstrates normal augmentation. T/P Trunk is compressible. PTV is compressible. RT PerV is compressible. Procedure This is a venous duplex using B-mode, color flow and spectral Doppler. Exam performed in department. A preliminary report was called and/or faxed to [facility]. VL/Venous Duplex US, Unilateral Interpretation Summary Deep veins of the right lower extremity are patent and compressible segmentally . There is no evidence of right lower extremity deep vein thrombosis. Valvular competence daiana ears intact within the proximal deep venous system on the right . The right great saphenous vein a ppears patent and compressible segmentally. Ordering Physician: Orlin Mejía Referring Physician: MD Delicia Nadeem Performed By: Joellen Lubin RVT
== END ==
PROVIDERS: PCP Family Medicine; Referring Provider Family Medicine; Visit Provider Family Medicine
DX: S83.91XA Sprain of unspecified site of right knee, initial encounter (principal); S80.01XA Contusion of right knee, initial encounter
CPT/HCPCS: 93971

== ENCOUNTER → 2021-08-10 07:50 | Outpatient (CLI) | payer OTHER, MEDICAID, SELFPAY ==
--- NOTE | 2021-08-10 08:29 | MRI_ITS ---
STUDY: MRI RIGHT KNEE REASON FOR EXAM: Right knee/upper leg pain for one month. TECHNIQUE: Standardized fat and water weighted pulse sequences were obtained in all 3 orthogonal planes. COMPARISON: Radiographs 02/17/2012. FINDINGS: Normal medial meniscus. Normal hyaline cartilage of the medial femorotibial compartment. Normal medial femoral condyle and tibial plateau. Normal medial collateral ligamentous complex (MCL). Normal distal semimembranosus, gracilis and semitendinosus tendons. Normal lateral meniscus. Normal hyaline cartilage of the lateral femorotibial compartment. Normal lateral femoral condyle and tibial plateau. Normal proximal tibiofibular articulation. Normal lateral collateral (fibular) ligament. Normal popliteus tendon. Normal biceps femoris tendon. There is mild intrasubstance mucoid degeneration of the anterior cruciate ligament (T2 sagittal image 12; T2 coronal images 15, 16). Normal posterior cruciate ligament (PCL). Normal congruent patellofemoral articulation. Normal hyaline cartilage of the patellofemoral compartment. Normal medial and lateral patellar retinaculum. Normal visualized quadriceps tendon. Normal patellar tendon. Normal Hoffa''s fat pad. There is no joint effusion. There is no popliteal cyst. The soft tissues are unremarkable. There is a small cyst in the upper pole of the patella. MRI/Lower Ext Joint Only (Routine) IMPRESSION: Mild intrasubstance mucoid degeneration of the anterior cruciate ligament. Small cyst in the upper pole of the patella. Otherwise, unremarkable MRI of the right knee without demonstrated meniscal tear. Electronically Signed: Mansoor Guzman MD at 10:09 EST Tel , Service support ,
== END ==
PROVIDERS: PCP Family Medicine; Visit Provider Family Medicine
DX: S83.91XA Sprain of unspecified site of right knee, initial encounter (principal); S80.01XA Contusion of right knee, initial encounter
CPT/HCPCS: 73721

== ENCOUNTER 2021-09-25 08:10 | Emergency (ER) | payer MEDICAID, SELFPAY ==
[2021-09-25 08:11] VITALS: BP 108/71; PULSE 94; RESP 18; TEMP 36.7; O2SAT 97; BMI 28.3
--- NOTE | 2021-09-25 08:26 | EX.ED.DYSGE1 ---
HPI History of Present Illness Chief Complaint: Cold Sx Informant: patient Narrative Narrative: 30-year-old female arriving to the emergency department stating that she feels ill. She states that last evening she developed headache nasal congestion and scratchy throat bilateral ear pain generalized myalgias and diarrhea. She also notes some associated nausea. She is Covid vaccinated. PFS PFS Home Medications NK 08/27/20 [History Last Taken Unknown] Allergy/AdvReac Type Severity Reaction Status Date / Time methylphenidate HCl Allergy Severe SEIZURES Verified 09/25/21 08:13 [From Ritalin] lactose Allergy Upset Verified 09/25/21 08:13 Stomach metoclopramide [From Reglan] Allergy Unknown Verified 09/25/21 08:13 tramadol AdvReac Vomiting Verified 09/25/21 08:13 Surgical History (Updated 09/25/21 @ 08:29 by Joellen Mittal) Hx of tonsillectomy Social History (Updated 09/25/21 @ 08:[address] Yoel Art, DO) current gender identity: female Smoking Status: Current every day smoker tobacco type: cigarettes ROS ROS ED Constitutional Constitutional ED: Reports chills; Denies fever(s) or weight loss Eyes Eyes: Denies change in vision or diplopia ENT ENT ED: Reports ear pain, rhinorrhea and sore throat Cardiovascular Cardiovascular: Denies chest pain, orthopnea, palpitations or racing heartbeat Respiratory/Chest Respiratory/Chest: Reports cough; Denies dyspnea or orthopnea Gastrointestinal Gastrointestinal: Reports diarrhea and nausea; Denies abdominal pain or vomiting Genitourinary Genitourinary ED: Denies dysuria, hematuria or urinary frequency Musculoskeletal Musculoskeletal: Reports myalgias; Denies arthralgias Integumentary Denies abscess or rash Neurologic Neurologic: Reports headache(s); Denies weakness Psychiatric Psychiatric: Denies anxiety, depression, suicidal ideation or suicidal thoughts Endocrine Endocrinology: Denies polydipsia, polyphagia or polyuria Allergic/Immunologic Allergic/Immunologic ED: Denies mouth swelling, tongue swelling or urticaria EXAM Physical Exam Const Vital Signs: 09/25/21 08:11 09/25/21 08:28 Temperature 98.1 F 98.1 F Temperature Source Temporal Temporal Pulse Rate 94 94 Respiratory Rate 18 18 Respiratory Effort Normal Respiratory Pattern Normal Blood Pressure 108/71 108/71 Blood Pressure Mean 83 83 Pulse Ox 97 97 Oxygen Delivery Method Room Air Room Air Positive well nourished and well developed General Appearance ED: well developed HEENT Reports normocephalic, head/scalp atraumatic, TM's clear and moist mucous membranes HEENT Narrative: Turbinate edema mild rhinorrhea Negative for trauma Tympanic Membrane ED: Yes TM's clear Eyes PERRL and EOMs intact bilaterally Neck no lymphadenopathy, supple and no JVD Resp normal respiratory effort and clear to auscultation bilaterally Cardio regular rate, regular rhythm and no murmurs GI normal to inspection, nondistended, normoactive bowel sounds and non-tender Palpation: soft Back/Spine no CVA tenderness and normal ROM Extremity normal to inspection General Extremety ED: Negative for edema General Extremity: Negative for edema Neuro oriented x3 and CN's II-XII intact bilaterally Sensorium / Orientation: alert Motor Exam: strength 5/5 throughout Psych mental status grossly normal Mood & Affect: Negative for depressed or tearful Skin no rashes or lesions noted and no wounds MDM MDM MDM Narrative Medical decision making narrative: Patient apparently got mad started standing in the middle of the emergency room screaming at the nurses. This is quite a different view of the patient from what I experienced when the patient was curled up on the bed with blanket saying how ill she was and that she hurt all over. Then she left the department after security and myself advised her to please leave. Discharge Plan Triage Chief Complaint: Cold Sx ED Provider: Yoel Art Dx/Rx/DC Orders Clinical Impression: Acute viral syndrome Instructions: ED Viral Syndrome (Adult) Prescriptions: No Action NK RF: 0 Primary Care Provider: Nadeem Nesbitt Referrals: Nadeem Nesbitt MD [Primary Care Provider] - As Needed Disposition Disposition: Home, Self Care
[2021-09-25 08:28] VITALS: BP 108/71; PULSE 94; RESP 18; TEMP 36.7; O2SAT 97
--- NOTE | 2021-09-25 09:03 | ED.RN ---
PT HAD MADE A COMMENT REGARDING TO TIME IT WOULD TAKE IN ER. WENT IN TO GIVE PT A HEADS UP TO HOW BUSY IT IS AND FOR FUTURE REFERENCE THAT URGENT CARES CAN SEE THESE SYMPTOMS AND PT STARTED SCREAMING THAT THEY WERE NOT OPEN AND SHE FELT LIKE SHIT AND IT IS AN EMERGENCY AND WOULD NOT WAIT. ASKED PT WHY SHE WAS SCREAMING WHEN I WAS TALKING CALMLY AND QUIETLY AND PT CONTINUED TO SCREAM. THIS NURSE THEN TURNED TO WALK OUT BECAUSE PT WAS IN NO POSITION TO HAVE A RATIONAL CONVERSATION, PT THEN SCREAMED MAYBE YOU NEED A NEW JOB IF YOU CAN'T TAKE CARE OF SICK PTS. THIS NURSE THEN TURNED AND STATED I AM MORE THAN HAPPY TO TAKE CARE OF SICK PTS. PT THEN INTERRUPTED SCREAMING AGAIN. THIS NURSE DID RESPOND OR MAYBE YOU JUST WANT OFF WORK SINCE SHE HAD HER FRIEND WHO WAS ALSO BEING SEEN CALLED HER OFF. THIS NURSE THEN LEFT THE ROOM. A FEW MINUTES LATER PT CAME OUT INTO THE HALLWAY LOOKING FOR THIS NURSE AND WAS SCREAMING SHE WANTED TO TALK TO MY MINT WAFER DEPOSITOR. STATED I WOULD CALL AND HAVE THEM COME SEE HER. PT CONTINUED TO SCREAM. EXPLAINED TO PT THAT SHE NEEDS TO HAVE A MASK ON AND RETURN TO HER ROOM. PT REFUSED STATING SHE IS A ADULT AND THIS NURSE IS NOT HER MOTHER. AGAIN TRIED TO STATE THE MINT WAFER DEPOSITOR WOULD COME TO HER ROOM AND PT REFUSED. ER PHYSICIAN AND SECURITY IN THE HALLWAY AT THIS TIME AND BOTH TOLD PT IF SHE WOULD NOT RETURN TO ROOM AND CONTINUED SCREAMING AT STAFF THAT SHE NEEDED TO LEAVE. PT THEN TURNED AND WAS WALKING OUT STATED THIS NURSE WAS [place] PT DID NOT KICK THIS NURSES ASS. SECURITY, ED PT ADVOCATE AND ED ASSIST INTERNAL WHOLESALER AWARE OF SITUATION
== END 2021-09-25 09:20 | disposition home or self-care (01) ==
PROVIDERS: Emergency Provider Emergency Medicine; PCP Family Medicine
DX: B34.9 Viral infection, unspecified (principal); R51.9 Headache, unspecified; R09.81 Nasal congestion; H92.03 Otalgia, bilateral; M79.10 Myalgia, unspecified site; R19.7 Diarrhea, unspecified; R11.0 Nausea; F17.210 Nicotine dependence, cigarettes, uncomplicated
CPT/HCPCS: 36415; 87426; 87804; 99282

== ENCOUNTER 2022-01-10 16:38 | Outpatient (CLI) | payer MEDICAID, SELFPAY ==
[2022-01-10 16:56] LABS: CRP < 2.90 mg/L (0.0-3.0)
[2022-01-10 16:59] LABS: Erythrocyte Sedimentation Rate 3 mm/hr (0-30)
== END 2022-01-10 23:59 | disposition home or self-care (01) ==
PROVIDERS: PCP Family Medicine; Referring Provider Nurse Practitioner Primary Care; Visit Provider Nurse Practitioner Primary Care
DX: R10.32 Left lower quadrant pain (principal)
CPT/HCPCS: 85652; 86140

== ENCOUNTER 2022-01-25 13:48 | Emergency (ER) | payer OTHER, MEDICAID, SELFPAY ==
[2022-01-25 13:48] VITALS: BP 130/83; PULSE 67; RESP 16; TEMP 36.6; O2SAT 98; BMI 29.2
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
[2022-01-25] MEDS: Naproxen 500 MG Tablet PO (14:45)
--- NOTE | 2022-01-25 14:50 | RAD_ITS ---
STUDY: X-RAY - LEFT HAND REASON FOR EXAM: Female, 31 years old. Injury involving the third fourth and fifth digits TECHNIQUE: 3 view(s) of the hand. COMPARISON: None. FINDINGS: Normal radiocarpal articulation. Normal distal radioulnar joint. Normal visualized carpal bones. Normal carpal articulations Normal carpometacarpal articulation of the thumb. Normal second through fifth carpometacarpal joints. Normal metacarpi. Normal metacarpophalangeal joint of the thumb. Normal interphalangeal joint of the thumb. Normal proximal and distal phalanges of the thumb. Normal metacarpophalangeal joints of the second through fifth fingers. Normal proximal and distal interphalangeal joints of the second through fifth fingers. Normal phalanges of the second through fifth fingers. The soft tissue structures are unremarkable. RAD/Hand Min 3 Views IMPRESSION: Normal x-ray examination of the hand. Electronically Signed: Sly Dos Santos MD at 15:07 EDT ,
--- NOTE | 2022-01-25 16:44 | ED.RN ---
Patient states did not want her hand cleaned. 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 pt states she will picker machine operator some stuff at pharmacy.
== END 2022-01-25 16:45 | disposition home or self-care (01) ==
PROVIDERS: Emergency Provider Emergency Medicine; PCP Family Medicine; Visit Provider Emergency Medicine
DX: S67.22XA Crushing injury of left hand, initial encounter (principal); W23.0XXA Caught, crushed, jammed, or pinched between moving objects, initial encounter; F17.210 Nicotine dependence, cigarettes, uncomplicated; J45.909 Unspecified asthma, uncomplicated; S60.415A Abrasion of left ring finger, initial encounter; S60.417A Abrasion of left little finger, initial encounter
CPT/HCPCS: 73130; 99283

== ENCOUNTER 2022-04-15 23:56 | Emergency (ER) | payer MEDICAID, SELFPAY ==
[2022-04-15 23:57] VITALS: BP 119/87; PULSE 84; RESP 16; TEMP 36.6; O2SAT 98; BMI 29.2
[2022-04-16 00:38] VITALS: BP 119/87; PULSE 84; RESP 16; O2SAT 98
--- NOTE | 2022-04-16 00:38 | EDS_ITS ---
HPI History of Present Illness Chief Complaint: General Illness Narrative Narrative: Patient is a 31-year-old female with past medical history of asthma and as well as smoking. She states she has been dating a new jeremy and he is recently become sick. She states she has had a fever at home with muscle aches and pains and some neck stiffness. She states she was worried she was developing an infectious process such as meningitis and secondary to this comes in for evaluation. [facility] Medical History Anxiety and depression Asthma History of seizure Migraine Home Medications naproxen 500 mg tablet (Naprosyn) 500 mg PO BID PRN pain #20 tabs 01/25/22 [Rx Last Taken Unknown] methocarbamol 500 mg tablet 1,000 mg PO 4X/DAY PRN PRN Muscle pain/spasm #56 tabs 04/16/22 [Rx Last Taken Unknown] Allergy/AdvReac Type Severity Reaction Status Date / Time methylphenidate HCl Allergy Severe SEIZURES Verified 04/16/22 00:00 [From Ritalin] lactose Allergy Upset Verified 04/16/22 00:00 Stomach metoclopramide [From Reglan] Allergy Unknown Verified 04/16/22 00:00 tramadol AdvReac Vomiting Verified 04/16/22 00:00 Surgical History Hx of tonsillectomy Social History Smoking Status: Current every day smoker tobacco type: cigarettes ROS ROS ED Constitutional Constitutional ED: Reports chills and fever(s) ENT ENT ED: Reports rhinorrhea; Denies sore throat Cardiovascular Cardiovascular: Denies chest pain Respiratory/Chest Respiratory/Chest: Denies cough or dyspnea Gastrointestinal Gastrointestinal: Reports nausea; Denies abdominal pain, diarrhea or vomiting Genitourinary Genitourinary ED: Denies dysuria Musculoskeletal Musculoskeletal: Reports myalgias and neck pain Integumentary Denies rash Neurologic Neurologic: Denies headache(s) Hematologic/Lymphatic Hematologic/Lymphatic: Denies easy bleeding or easy bruising EXAM Physical Exam Const Vital Signs: 04/15/22 23:57 04/16/22 00:38 Temperature 98 F Temperature Source Temporal Pulse Rate 84 84 Respiratory Rate 16 16 Blood Pressure 119/87 H 119/87 H Blood Pressure Mean 97 Pulse Ox 98 98 Oxygen Delivery Method Room Air Positive well nourished and well developed General Appearance ED: well developed HEENT Reports moist mucous membranes HEENT Narrative: Cobblestoning the posterior pharynx consistent with sinus drainage but no airway edema or compromise Eyes PERRL and EOMs intact bilaterally Neck supple Neck Narrative: Positive anterior cervical lymphadenopathy noted. No bony deformity or step-off of the cervical spine no midline pain with palpation. There is bilateral paracervical tension and spasm noted. Range of motion is decreased secondary to pain but there is no overt meningeal signs or signs of nuchal rigidity. Resp normal respiratory effort and clear to auscultation bilaterally Cardio regular rate and regular rhythm GI normal to inspection, nondistended, normoactive bowel sounds, non-tender and non-distended GI Narrative: No voluntary guarding or rigidity no pulsatile mass Auscultation: normoactive bowel sounds Palpation: soft Extremity normal to inspection Neuro oriented x3 and CN's II-XII intact bilaterally Sensorium / Orientation: alert Psych mental status grossly normal Skin no rashes or lesions noted MDM MDM MDM Narrative Medical decision making narrative: Patient presented to the ER afebrile with stable vitals. Neuro exam is nonfocal and she does have physical exam findings consistent with myalgias and cervical tension but there is no true nuchal rigidity present. I discussed with patient that at this time would be safest to perform viral swabs as well as basic blood work and then progressed to a head CT as well as lumbar puncture if needed. Patient states that she does not want any type of testing performed at this time as my clinical exam does not overtly point to meningitis. I informed the patient that in order to be safe these test should be performed. However she still states she does not want them done and will return if there is no improvement over the next few days. Therefore patient will be discharged at this time and advised to continue symptomatic medications. Discharge Plan Triage Chief Complaint: General Illness ED Provider: Kevan Casas Dx/Rx/DC Orders Clinical Impression: Viral illness Instructions: ED Viral Syndrome (Adult) Prescriptions: New methocarbamol 500 mg tablet 1,000 mg PO 4X/DAY PRN PRN (Reason: Muscle pain/spasm) Qty: 56 0RF No Action naproxen [Naprosyn] 500 mg tablet 500 mg PO BID PRN (Reason: pain) Qty: 20 0RF Stand Alone Forms: ED Work / School Excuse Primary Care Provider: Nadeem Nesbitt Referrals: Nadeem Nesbitt MD [Primary Care Provider] - Activity Restrictions/Additional Instructions: If you change your mind about undergoing a work-up for your symptoms or have any further concerns please return to the ER for repeat evaluation Disposition Disposition: Home, Self Care Discharge Date/Time: 04/16/22 01:10
== END 2022-04-16 01:10 | disposition home or self-care (01) ==
PROVIDERS: Emergency Provider Emergency Medicine; PCP Family Medicine; Visit Provider Emergency Medicine
DX: B34.9 Viral infection, unspecified (principal); F17.210 Nicotine dependence, cigarettes, uncomplicated; R11.0 Nausea; M54.2 Cervicalgia; M79.10 Myalgia, unspecified site; R59.0 Localized enlarged lymph nodes
CPT/HCPCS: 99282

== ENCOUNTER 2022-04-21 03:45 | Emergency (ER) | payer MEDICAID, SELFPAY ==
[2022-04-21 03:48] VITALS: BP 117/77; PULSE 83; RESP 15; TEMP 36.3; O2SAT 97; BMI 29.5
[2022-04-21 04:14] LABS: Absolute Lymphocyte Count 2.09 X10^3/uL (0.83-4.51); Absolute Neutrophil Count 6.1 X10^3/uL (2.0-7.7); Basophil# 0.03 X10^3/uL; Basophil% 0.3 % (0-1); Eosinophil# 0.05 X10^3/uL; Eosinophils% 0.6 % (0-5); Hematocrit 39.5 % (37-47); Hemoglobin 13.2 g/dL (12.0-15.0); Lymphocyte # 2.09 X10^3/ul (0.83-4.51); Lymphocyte % 23.8 % (19-41); Mean Corp Hgb Conc 33.4 g/dL (32-36); Mean Corpuscular Hgb 29.9 pg (27.0-32.0); Mean Corpuscular Volume 89.4 fL (81-99); Mean Platelet Vol. 9.6 fl (6.2-12.0); Monocyte# 0.45 X10^3/uL; Monocyte% 5.1 % (0-10); NRBC Flagged by Analyzer 0 % (0-5); Neutrophil # 6.12 X10^3/uL (2.7-7.7); Neutrophil % 69.7 % (47-70); Platelet Count 278 K/mm3 (150-450); RBC Distribution Width CV 12.7 % (11.6-14.6); RBC Distribution Width SD 41.6 fl (35.1-43.9); Red Blood Count 4.42 M/mm3 (4.2-5.4); White Blood Count 8.8 K/mm3 (4.4-11.0)
[2022-04-21 04:29] LABS: Anion Gap 8 (5-15); BUN 10 mg/dL (7-18); BUN/Creat Ratio 14.3 RATIO (10-20); Calcium,Total 8.4 mg/dL (8.5-10.1); Chloride 108 mmol/L (98-107); EST Glomerular Filtration Rate 103 mL/min (>60); Est Glom Filt Rate - Afr Amer 124 mL/min (>60); Estimated Creatinine Clearance 98.71 ml/min; Glucose 93 mg/dL (74-106); Potassium 3.3 mmol/L (3.5-5.1); Sodium Level 141 mmol/L (136-145)
[2022-04-21 04:42] LABS: Internal QC Validated? YES +Cl - CLEAR BKGD; Pregnancy, Serum, hCG Quali. NEGATIVE Negative
--- NOTE | 2022-04-21 05:00 | CT_ITS ---
EXAM: CT HEAD WITHOUT INTRAVENOUS CONTRAST CLINICAL INDICATION: Fall with head injury. TECHNIQUE: Multiple axial images were obtained of the head without intravenous contrast. This CT exam was performed using one or more of the following dose reduction techniques: automated exposure control, adjustment of the mA and/or kV according to patient size, and/or use of iterative reconstruction technique. This report was created using [employer] report generation technology. RADIATION DOSE: CTDIvol = 44.99 mGy, DLP = 812.98 mGy-cm. COMPARISON: 02/09/2019. FINDINGS: BRAIN AND EXTRA-AXIAL SPACES: Unremarkable. No intra- or extra-axial hemorrhage. No evidence of acute infarct. No intracranial mass or mass effect. There is preservation of the hurtado/white matter interface. Posterior fossa structures are unremarkable. Ventricles are appropriate for age. No hydrocephalus. Basal cisterns are patent. BONES/JOINTS: Unremarkable. No discrete lytic or blastic abnormalities. SINUSES: Unremarkable as visualized. Clear. MASTOID AIR CELLS: Unremarkable. Clear. ORBITS: Visualized globes, extraocular muscles, optic nerves and retrobulbar fat appear unremarkable. CT/Brain/Head without Contrast IMPRESSION: Negative head/brain CT without intravenous contrast. Electronically Signed: Duong Manuel MD at 5:31 EDT ,
--- NOTE | 2022-04-21 05:00 | CT_ITS ---
EXAM: CT CERVICAL SPINE WITHOUT INTRAVENOUS CONTRAST CLINICAL INDICATION: Fall with neck injury. TECHNIQUE: Helically acquired images were obtained of the cervical spine without intravenous contrast. 2D reformatted images were reviewed. This CT exam was performed using one or more of the following dose reduction techniques: automated exposure control, adjustment of the mA and/or kV according to patient size, and/or use of iterative reconstruction technique. This report was created using [employer] report generation technology. RADIATION DOSE: CTDIvol = 16.74 mGy, DLP = 591.28 mGy-cm. COMPARISON: None. FINDINGS: VERTEBRAE: Unremarkable. No fracture. No traumatic subluxation. No discrete lytic or blastic abnormality. Normal alignment. Normal craniocervical junction and cervicothoracic junction. DISCS/SPINAL CANAL/NEURAL FORAMINA: Unremarkable. Disc heights are preserved. No critical stenosis. SOFT TISSUES: Unremarkable. No prevertebral soft tissue swelling. LYMPH NODES: Unremarkable. No cervical adenopathy. LUNG APICES: Unremarkable as visualized. Clear. CT/Spine Cervical without Contras IMPRESSION: No evidence of acute cervical spinal fracture or spondylolisthesis. Electronically Signed: Duong Manuel MD at 5:33 EDT ,
--- NOTE | 2022-04-21 05:00 | CT_ITS ---
EXAM: CT THORACIC SPINE WITHOUT INTRAVENOUS CONTRAST CLINICAL INDICATION: Fall with back pain. TECHNIQUE: Helically acquired images were obtained of the thoracic spine without intravenous contrast. 2D reformats were reviewed. This CT exam was performed using one or more of the following dose reduction techniques: automated exposure control, adjustment of the mA and/or kV according to patient size, and/or use of iterative reconstruction technique. This report was created using [employer] report generation technology. RADIATION DOSE: CTDIvol = 20.95 mGy, DLP = 755.28 mGy-cm. COMPARISON: None. FINDINGS: VERTEBRAE: Unremarkable. No fracture. No traumatic subluxation. No discrete lytic or blastic abnormality. Normal alignment. DISCS/SPINAL CANAL/NEURAL FORAMINA: Unremarkable. Disc heights are preserved. VASCULATURE: Visualized thoracic aorta is not dilated. LYMPH NODES: Unremarkable. No retroperitoneal adenopathy. LUNGS AND PLEURAL SPACES: Unremarkable as visualized. No mass. No consolidation or edema. No pleural effusion or thickening. No pneumothorax. CT/Spine Thoracic without Contras IMPRESSION: No evidence of acute thoracic spinal fracture or spondylolisthesis. Electronically Signed: Duong Manuel MD at 5:34 EDT ,
--- NOTE | 2022-04-21 05:00 | CT_ITS ---
EXAM: CT LUMBAR SPINE WITHOUT INTRAVENOUS CONTRAST CLINICAL INDICATION: Fall with back pain. TECHNIQUE: Helically acquired images were obtained of the lumbar spine without intravenous contrast. 2D reformats were reviewed. This CT exam was performed using one or more of the following dose reduction techniques: automated exposure control, adjustment of the mA and/or kV according to patient size, and/or use of iterative reconstruction technique. This report was created using [employer] report generation technology. RADIATION DOSE: CTDIvol = 30.46 mGy, DLP = 930.78 mGy-cm. COMPARISON: None. FINDINGS: VERTEBRAE: Unremarkable. No fracture. No traumatic subluxation. No discrete lytic or blastic abnormality. Normal alignment. DISCS/SPINAL CANAL/NEURAL FORAMINA: Unremarkable. Disc heights are preserved. No critical stenosis. VASCULATURE: Visualized abdominal aorta is not dilated. LYMPH NODES: Unremarkable. No retroperitoneal adenopathy. CT/Spine Lumbar without Contrast IMPRESSION: No evidence of acute lumbar spinal fracture or spondylolisthesis. Electronically Signed: Duong Manuel MD at 5:35 EDT ,
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
[2022-04-21 06:51] VITALS: BP 165/76; PULSE 76; RESP 16; O2SAT 98
== END 2022-04-21 06:52 | disposition home or self-care (01) ==
PROVIDERS: Emergency Provider Emergency Medicine; PCP Family Medicine; Visit Provider Emergency Medicine
DX: S80.211A Abrasion, right knee, initial encounter (principal); F10.129 Alcohol abuse with intoxication, unspecified; J45.909 Unspecified asthma, uncomplicated; F17.210 Nicotine dependence, cigarettes, uncomplicated; S80.212A Abrasion, left knee, initial encounter; W19.XXXA Unspecified fall, initial encounter; S30.0XXA Contusion of lower back and pelvis, initial encounter; Y90.9 Presence of alcohol in blood, level not specified
CPT/HCPCS: 70450; 72125; 72128; 72131; 80048; 82077; 84703; 85025; 99284; A4216

== ENCOUNTER 2022-04-22 21:01 | Emergency (ER) | payer MEDICAID, SELFPAY ==
[2022-04-22 21:02] VITALS: BP 121/71; PULSE 77; RESP 15; TEMP 36.9; O2SAT 100; BMI 29.3
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
[2022-04-22 22:43] VITALS: RESP 16
== END 2022-04-22 22:44 | disposition home or self-care (01) ==
PROVIDERS: Emergency Provider Emergency Medicine; PCP Family Medicine; Visit Provider Emergency Medicine
DX: R29.898 Other symptoms and signs involving the musculoskeletal system (principal); F17.210 Nicotine dependence, cigarettes, uncomplicated; R20.2 Paresthesia of skin; J45.909 Unspecified asthma, uncomplicated; S39.92XA Unspecified injury of lower back, initial encounter; Y04.0XXA Assault by unarmed brawl or fight, initial encounter
CPT/HCPCS: 99282

== ENCOUNTER 2023-08-22 15:41 | Inpatient (IN) | payer MEDICAID, SELFPAY ==
[2023-08-22 15:42] VITALS: BP 129/85; PULSE 106; RESP 18; TEMP 36.2; O2SAT 97; BMI 32.0
--- NOTE | 2023-08-22 15:53 | EX.ED.DYSGE1 ---
HPI History of Present Illness Chief Complaint: ETOH Intox Detail of Chief Complaint: Desire for detox Informant: patient Narrative Narrative: Patient presents at the [place] [id number] for the detox program. Patient states has been drinking vodka for the past 2 years. She stopped drinking yesterday but due to withdrawal symptoms had to have a small drink this morning. She complains of body aches everywhere along with nausea and dry heaves with vomiting. She complains of a headache. She denies going through a detox program in the past. She does have a history of seizure, but states that was as a child when she was on Ritalin. She is never had a seizure related to alcohol use or withdrawal. She denies any drug use. [facility] Medical History Anxiety and depression Asthma History of seizure Migraine Home Medications NK 08/22/23 [History Last Taken Unknown] Allergy/AdvReac Type Severity Reaction Status Date / Time methylphenidate HCl Allergy Severe SEIZURES Verified 08/22/23 15:42 [From Ritalin] lactose Allergy Upset Verified 08/22/23 15:42 Stomach metoclopramide [From Reglan] Allergy Unknown Verified 08/22/23 15:42 tramadol AdvReac Vomiting Verified 08/22/23 15:42 Surgical History Hx of tonsillectomy Social History Smoking Status: Current every day smoker tobacco type: cigarettes ROS ROS ED Constitutional Constitutional ED: Denies chills or fever(s) Eyes Eyes: Denies discharge from eye(s) ENT ENT ED: Denies discharge from eye(s), rhinorrhea or sore throat Cardiovascular Cardiovascular: Denies chest pain or palpitations Respiratory/Chest Respiratory/Chest: Denies cough or dyspnea Gastrointestinal Gastrointestinal: Reports abdominal pain, diarrhea, nausea and vomiting Genitourinary Genitourinary ED: Denies difficulty urinating or dysuria Musculoskeletal Musculoskeletal: Reports extremity pain and myalgias; Denies back pain Integumentary Denies Abrasions or rash Neurologic Neurologic: Reports headache(s); Denies weakness Psychiatric Psychiatric: Reports anxiety Endocrine Endocrinology: Denies polydipsia or polyuria Allergic/Immunologic Allergic/Immunologic ED: Denies lip swelling or urticaria EXAM Physical Exam Const Vital Signs: 08/22/23 15:42 Temperature 97.1 F L Temperature Source Temporal Pulse Rate 106 H Respiratory Rate 18 Blood Pressure 129/85 H Blood Pressure Mean 99 Pulse Ox 97 Oxygen Delivery Method Room Air Positive well nourished and well developed General Appearance ED: well developed HEENT Reports normocephalic and head/scalp atraumatic Eyes PERRL and EOMs intact bilaterally Neck supple Chest Wall inspection of chest normal and palpation of chest normal Resp normal respiratory effort and clear to auscultation bilaterally Cardio regular rhythm Rate: tachycardic GI non-tender Auscultation: hypoactive bowel sounds Palpation: soft Back/Spine no CVA tenderness Extremity normal to inspection Neuro oriented x3 and no sensory deficits noted Sensorium / Orientation: alert Motor Exam: strength 5/5 throughout Psych Mood & Affect: anxious and tearful Skin no rashes or lesions noted MDM MDM MDM Narrative Medical decision making narrative: Lab work for addiction medicine obtained. Patient given Ativan and Zofran. IV fluids initiated. History & Record Review Discussion w/independent historian: Patient Additional record(s) reviewed:: Prior labs Lab Data Attestation: I reviewed the patient's lab results. Labs: Laboratory Results - last 24 hr 08/22/23 08/22/23 16:01 16:05 WBC 7.6 RBC 4.94 Hgb 14.5 Hct 43.9 MCV 88.9 MCH 29.4 MCHC 33.0 RDW Std Deviation 41.0 RDW Coeff of Eulogio 12.6 Plt Count 283 MPV 9.2 Immature Gran % (Auto) 0.300 Neut % (Auto) 65.8 Lymph % (Auto) 28.3 [place] % (Auto) 4.2 Eos % (Auto) 0.7 Baso % (Auto) 0.7 Absolute Neuts (auto) 5.0 Absolute Lymphs (auto) 2.15 Nucleated RBC % 0 Sodium 140 Potassium 3.6 Chloride 109 H Carbon Dioxide 27.0 Anion Gap 4 L BUN 7 Creatinine 0.70 Estim Creat Clear Calc 97.79 Est GFR (MDRD) Af Amer 123 Est GFR (MDRD) Non-Af 102 BUN/Creatinine Ratio 10.1 Glucose 86 Calcium 9.0 Total Bilirubin 0.50 AST 23 ALT 37 Alkaline Phosphatase 83 Total Protein 7.6 Albumin 4.0 Globulin 3.6 Albumin/Globulin Ratio 1.1 Serum , Qual NEGATIVE Urine Opiates Screen NEGATIVE Urine Methadone Screen NEGATIVE Ur Barbiturates Screen NEGATIVE Ur Phencyclidine Scrn NEGATIVE Ur Amphetamines Screen NEGATIVE MDMA (Ecstasy) Screen NEGATIVE U Benzodiazepines Scrn NEGATIVE Urine Cocaine Screen NEGATIVE U Cannabinoids Screen NEGATIVE Ur Drug Screen Comment Ethyl Alcohol 133.0 Treatment and Re-Evaluation :: CBC was normal white count 7.6 with a hemoglobin of 14.5. Chemistry studies are unremarkable. LFTs are normal. test is negative. EtOH is 133 and urine tox screen is negative. Patient has agreed to the conditions of the detox program. I will speak with the hospitalist. CIWA score on arrival is 10. Discharge Plan Triage Chief Complaint: ETOH Intox ED Provider: Marely Moran Dx/Rx/DC Orders Clinical Impression: Desire for detoxification, ETOH abuse Prescriptions: No Action NK Primary Care Provider: Nadeem Nesbitt Referrals: Nadeem Nesbitt MD [Primary Care Provider] - Disposition Disposition: Acute Care Hospital [facility]
[2023-08-22] MEDS: 0.9% Normal Saline (1000mL) 1,000 ML 999 ML IV (16:05)
[2023-08-22] MEDS: Ondansetron 4 MG/2 ML Vial IV (16:05)
[2023-08-22] MEDS: LORazepam 2 MG/ML Syringe 1 MG IV (16:06)
[2023-08-22 16:18] LABS: Absolute Lymphocyte Count 2.15 X10^3/uL (0.83-4.51); Basophil# 0.05 X10^3/uL; Basophil% 0.7 % (0-1); Eosinophil# 0.05 X10^3/uL; Eosinophils% 0.7 % (0-5); Hematocrit 43.9 % (37-47); Hemoglobin 14.5 g/dL (12.0-15.0); Lymphocyte # 2.15 X10^3/ul (0.83-4.51); Lymphocyte % 28.3 % (19-41); Mean Corpuscular Hgb 29.4 pg (27.0-32.0); Mean Corpuscular Volume 88.9 fL (81-99); Mean Platelet Vol. 9.2 fl (6.2-12.0); Monocyte# 0.32 X10^3/uL; Monocyte% 4.2 % (0-10); NRBC Flagged by Analyzer 0 % (0-5); Neutrophil # 5.01 X10^3/uL (2.7-7.7); Neutrophil % 65.8 % (47-70); Platelet Count 283 K/mm3 (150-450); RBC Distribution Width CV 12.6 % (11.6-14.6); Red Blood Count 4.94 M/mm3 (4.2-5.4); White Blood Count 7.6 K/mm3 (4.4-11.0)
[2023-08-22 16:33] LABS: Amphetamine Urine VISTA NEGATIVE (<1000 ng/mL); Barbiturate Urine VISTA NEGATIVE (< 200 ng/mL); Benzodiazepine Urine VISTA NEGATIVE (< 200 ng/mL); Cocaine Urine VISTA NEGATIVE (< 300 ng/mL); Ecstacy Urine VISTA NEGATIVE (< 500 ng/mL); Methadone Urine VISTA NEGATIVE (< 300 ng/mL); PCP Urine VISTA NEGATIVE (< 25 ng/mL); THC Urine VISTA NEGATIVE (< 50 ng/mL); Vista UDS pH Range 6
[2023-08-22 16:46] LABS: ALB/GLOB Ratio 1.1 RATIO (0.9-2.4); AST(SGOT) 23 U/L (15-37); Alanine Aminotransfer ALT/SGPT 37 U/L (13-56); Alkaline Phosphatase 83 U/L (45-117); Anion Gap 4 (5-15); BUN 7 mg/dL (7-18); BUN/Creat Ratio 10.1 RATIO (10-20); Chloride 109 mmol/L (98-107); EST Glomerular Filtration Rate 102 mL/min (>60); Est Glom Filt Rate - Afr Amer 123 mL/min (>60); Estimated Creatinine Clearance 97.79 ml/min; Globulin 3.6 g/dL (2.2-4.2); Glucose 86 mg/dL (74-106); Potassium 3.6 mmol/L (3.5-5.1); Protein, Total 7.6 g/dL (6.4-8.2); Sodium Level 140 mmol/L (136-145)
[2023-08-22 16:47] LABS: Internal QC Validated? YES +Cl - CLEAR BKGD; Pregnancy, Serum, hCG Quali. NEGATIVE Negative; Record Kit Lot#, Serum Preg. 667200
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
[2023-08-22 18:20] VITALS: BMI 31.7
[2023-08-22 19:04] VITALS: BP 120/86; PULSE 92; RESP 19; TEMP 36.8; O2SAT 99
[2023-08-22] MEDS: Ondansetron 8 MG Tablet PO (19:16)
[2023-08-22] MEDS: Phenobarbital 32.4 MG Tablet 64.8 MG PO ×2 (19:16→22:40)
[2023-08-22] MEDS: hydrOXYzine PAM 25 MG Capsule 50 MG PO (19:16)
[2023-08-22] MEDS: Gabapentin 300 MG Capsule PO (20:11)
[2023-08-22] MEDS: Acetaminophen 325 MG Tablet 650 MG PO (20:12)
[2023-08-22 20:14] VITALS: BP 116/76; PULSE 98; RESP 16; TEMP 36.8; O2SAT 99
[2023-08-22] MEDS: traZODone 100 MG Tablet PO (22:41)
[2023-08-23] MEDS: Phenobarbital 32.4 MG Tablet 64.8 MG PO ×6 (03:04→22:25)
[2023-08-23] MEDS: hydrOXYzine PAM 25 MG Capsule 50 MG PO ×4 (03:05→22:25)
[2023-08-23 03:08] VITALS: BP 100/57; PULSE 68; RESP 16; TEMP 36.8; O2SAT 96
[2023-08-23] MEDS: Gabapentin 300 MG Capsule PO ×2 (06:41→20:14)
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
[2023-08-23] MEDS: Folic Acid 1 MG Tablet PO (09:12)
[2023-08-23] MEDS: Thiamine Hydrochloride 100 MG Tablet PO (09:12)
[2023-08-23] MEDS: Cyanocobalamin 500 MCG Tablet 1000 MCG PO (09:12)
[2023-08-23] MEDS: Ibuprofen 600 MG Tablet PO ×2 (09:15→15:22)
[2023-08-23 09:16] VITALS: BP 106/66; PULSE 76; RESP 18; TEMP 36.7; O2SAT 95
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
[2023-08-23] MEDS: Acetaminophen 325 MG Tablet 650 MG PO (11:21)
--- NOTE | 2023-08-23 14:28 | CHAPLAIN ---
Type of Pastoral Visit __x_ Initial Visit ___ Follow-up Visit ___ On-call Visit ___ General Patient Visit ___ Spiritual Assessment ___ Family Conference ___ Bereavement ___ Rapid Response ___ Code Blue ___ Other (describe below) Pastoral Care Referral From _x__ Patient ___ Family ___ Nurse ___ Physician ___ Hospital Ward Clerk ___ Manufacturing Mechanic ___ Other (describe below) Sacrament/Intervention _x__ Active listening ___ Anointing ___ Oriental Orthodox ___ Bereavement ___ Communion ___ Jesica exploration ___ ___ Life review ___ Prayer ___ Reconciliation ___ Sacrament of Sick _x__ Supportive presence ___ Wedding ___ Other (describe below) Pastoral Comments patient is pleasant but admits that she is suffering discomfort and leg movements at this time; pt states that she has support; pt is offered presence, someone to talk with, and prayer; pt declines and sayes she only needs prayer and rest at this time
[2023-08-23] MEDS: Ondansetron 8 MG Tablet PO (15:33)
[2023-08-23] MEDS: Dicyclomine 10 MG Capsule 20 MG PO (15:33)
--- NOTE | 2023-08-23 16:05 | ADDICTION ---
This program writer met with client re: d/c plans. Client is interested in outpatient treatment. Spoke with intake at [facility], walk-in hours Sunday 08/26 10am-1:00pm. Client is expecting to be d/c'd Saturday 08/25. Client is resting in bed at this time. No questions/concerns. She shared her withdrawal s/sx are worsening, she has informed nurse and received medications. Client was encouraged to notify staff if she has further questions regarding AoD treatment or referrals.
[2023-08-23 18:52] VITALS: BP 121/74; PULSE 73; RESP 18; TEMP 36.8; O2SAT 95
[2023-08-23 20:13] VITALS: BP 113/68; PULSE 77; RESP 16; TEMP 36.6; O2SAT 99
[2023-08-23] MEDS: Loperamide 2 MG Capsule PO (20:14)
[2023-08-23] MEDS: traZODone 100 MG Tablet PO (20:14)
[2023-08-24 03:47] VITALS: BP 109/64; PULSE 75; RESP 14; TEMP 36.6; O2SAT 99
[2023-08-24] MEDS: Phenobarbital 32.4 MG Tablet 64.8 MG PO ×6 (03:49→21:56)
[2023-08-24] MEDS: Gabapentin 300 MG Capsule PO ×3 (03:49→21:56)
[2023-08-24] MEDS: Dicyclomine 10 MG Capsule 20 MG PO ×3 (03:49→20:00)
[2023-08-24] MEDS: Folic Acid 1 MG Tablet PO (08:59)
[2023-08-24] MEDS: Thiamine Hydrochloride 100 MG Tablet PO (08:59)
[2023-08-24] MEDS: Cyanocobalamin 500 MCG Tablet 1000 MCG PO (08:59)
[2023-08-24] MEDS: hydrOXYzine PAM 25 MG Capsule 50 MG PO ×3 (09:03→20:00)
[2023-08-24] MEDS: Ibuprofen 600 MG Tablet PO ×2 (09:04→21:56)
[2023-08-24 09:38] VITALS: BP 101/61; PULSE 66; RESP 18; TEMP 36.8; O2SAT 98
[2023-08-24 09:47] VITALS: BP 101/61; PULSE 66; RESP 18; TEMP 36.8; O2SAT 98
[2023-08-24] MEDS: Pantoprazole Sodium 40 MG Tablet PO (10:16)
--- NOTE | 2023-08-24 10:26 | PCM.PN.HOSP ---
Reason for Visit Reason for Visit: Patient states she is having a little bit difficulty focusing and complaining of diffuse myalgias a little bit of nausea and some leg aching. She also reports she had a dark stool yesterday and complains of some abdominal pain. She is never gone through detox before. She does however states she is feeling better today than yesterday. Objective Data Objective Data Vital Signs: Vital Signs Temp Pulse Resp BP Pulse Ox O2 Del Method 97.8 F 75 14 109/64 99 Room Air 08/24/23 03:47 08/24/23 03:47 08/24/23 03:47 08/24/23 03:47 08/24/23 03:47 08/24/23 03:47 Oxygen Delivery Method Room Air Weight: 83.915 kg Body Mass Index (BMI) 31.7 Intake & Output: Intake and Output for Last 24 Hours 08/22/23 08/23/23 08/24/23 23:59 23:59 23:59 Intake Total 1000 / 1000 Balance 1000 / 1000 Lab / Micro Data 08/22/23 16:01 08/22/23 16:01 Physical Exam Const alert, oriented x3, no apparent distress and well nourished Constitutional Narrative: Obese, middle-aged, white female, sitting up in bed with breakfast at the bedside, nursing at bedside, patient appears comfortable and nontoxic HEENT head/scalp atraumatic and moist oral mucous membranes Head and Scalp: normocephalic Resp normal respiratory effort, no retractions, no use of accessory muscles and clear to auscultation bilaterally Auscultation: Negative for rales, rhonchi or wheezes Cardio regular rate, regular rhythm, S1 normal heart sound, S2 normal heart sound, no murmurs, no rub, no gallops and no clicks GI normal to inspection, nondistended, normoactive bowel sounds and soft to palpation GI Narrative: Very mild diffuse tenderness with no focal tenderness Extremity no clubbing, cyanosis or edema Extremity Narrative: 2+ pedal pulse is Neuro oriented x3, moves all extremities and no focal motor deficits Speech: speech normal Psych affect normal Psych Narrative: Eye contact is good, patient interacts normally Assessment & Plan Assessment/Plan (1) ETOH abuse: (2) Desire for detoxification: (3) Nausea: PLAN: Plan Alcohol abuse with pending alcohol withdrawal -Still fairly significant withdrawal symptoms however does appear to be improving -Continue phenobarbital taper -Continue CIWA with as needed Ativan -Continue supportive medication for symptom management -Continue thiamine and folate -180 following and plan is for Vivitrol and 180 outpatient follow-up after discharge -I do not anticipate she will be ready for discharge until at the earliest on Saturday Nausea -Patient reports she had a dark stool -Will repeat hemoglobin and check stool guaiac -Will start Protonix p.o. 40 mg daily Nicotine abuse -Patient vapes -Denies the need for any nicotine replacement therapy -Will monitor DVT prophylaxis -Low risk -Encourage frequent and early ambulation CODE STATUS Full code Charges/Coding Visit Charges Inpatient E&M: 92504 Subs Hosp L2
[2023-08-24 11:34] LABS: Hematocrit 37.2 % (37-47); Hemoglobin 12.3 g/dL (12.0-15.0)
[2023-08-24 15:24] VITALS: BP 100/63; PULSE 76; RESP 18; TEMP 36.7; O2SAT 98
[2023-08-24 15:26] VITALS: BP 100/63; PULSE 76; RESP 18; TEMP 36.7; O2SAT 98
[2023-08-24] MEDS: Methocarbamol 750 MG Tablet PO ×2 (15:33→19:59)
[2023-08-24] MEDS: LORazepam 1 MG Tablet 2 MG PO (17:33)
[2023-08-24 21:00] VITALS: BP 116/80; PULSE 96; RESP 18; TEMP 36.7; O2SAT 96
[2023-08-24] MEDS: traZODone 100 MG Tablet PO (21:56)
[2023-08-25 03:00] VITALS: BP 123/64; PULSE 76; RESP 18; TEMP 36.9; O2SAT 97
[2023-08-25] MEDS: Phenobarbital 32.4 MG Tablet 64.8 MG PO ×2 (03:06→09:06)
[2023-08-25] MEDS: hydrOXYzine PAM 25 MG Capsule 50 MG PO ×3 (03:06→12:38)
[2023-08-25] MEDS: Methocarbamol 750 MG Tablet PO ×2 (03:06→08:41)
[2023-08-25 06:47] LABS: Absolute Lymphocyte Count 1.75 X10^3/uL (0.83-4.51); Absolute Neutrophil Count 4.6 X10^3/uL (2.0-7.7); Basophil# 0.03 X10^3/uL; Basophil% 0.4 % (0-1); Eosinophil# 0.15 X10^3/uL; Eosinophils% 2.1 % (0-5); Hematocrit 39.6 % (37-47); Lymphocyte # 1.75 X10^3/ul (0.83-4.51); Lymphocyte % 24.7 % (19-41); Mean Corp Hgb Conc 32.8 g/dL (32-36); Mean Corpuscular Hgb 29.3 pg (27.0-32.0); Mean Corpuscular Volume 89.2 fL (81-99); Monocyte# 0.47 X10^3/uL; Monocyte% 6.6 % (0-10); NRBC Flagged by Analyzer 0 % (0-5); Neutrophil # 4.64 X10^3/uL (2.7-7.7); Neutrophil % 65.6 % (47-70); Platelet Count 234 K/mm3 (150-450); RBC Distribution Width CV 12.3 % (11.6-14.6); RBC Distribution Width SD 40.4 fl (35.1-43.9); Red Blood Count 4.44 M/mm3 (4.2-5.4); White Blood Count 7.1 K/mm3 (4.4-11.0)
[2023-08-25 07:03] LABS: Anion Gap 6 (5-15); BUN 14 mg/dL (7-18); BUN/Creat Ratio 21.2 RATIO (10-20); Chloride 108 mmol/L (98-107); Creatinine, Serum 0.66 mg/dL (0.55-1.02); EST Glomerular Filtration Rate 109 mL/min (>60); Est Glom Filt Rate - Afr Amer 131 mL/min (>60); Estimated Creatinine Clearance 103.71 ml/min; Glucose 93 mg/dL (74-106); Sodium Level 138 mmol/L (136-145)
[2023-08-25] MEDS: Gabapentin 300 MG Capsule PO (07:52)
[2023-08-25] MEDS: Dicyclomine 10 MG Capsule 20 MG PO (08:41)
[2023-08-25] MEDS: LORazepam 1 MG Tablet PO (08:41)
[2023-08-25] MEDS: Pantoprazole Sodium 40 MG Tablet PO (08:42)
[2023-08-25] MEDS: Cyanocobalamin 500 MCG Tablet 1000 MCG PO (08:42)
[2023-08-25] MEDS: Thiamine Hydrochloride 100 MG Tablet PO (08:42)
[2023-08-25] MEDS: Folic Acid 1 MG Tablet PO (08:42)
[2023-08-25 09:00] VITALS: BP 114/69; PULSE 78; RESP 18; TEMP 36.4; O2SAT 98
[2023-08-25 09:47] VITALS: BP 114/69; PULSE 78; RESP 18; TEMP 36.4; O2SAT 98
--- NOTE | 2023-08-25 09:56 | PN.HOSP_ITS ---
Reason for Visit Reason for Visit: Alcohol detox Subjective Subjective Patient reports ongoing restless legs and I suspect she has fairly significant underlying anxiety and will refer her to Dr. Crane for psychiatric care to see if treating her significant underlying anxiety also helps in the treatment of her addiction. No more nausea or vomiting. Somatic symptoms seem to be improving other than her lower extremity leg aching. Her hemoglobin is stable and she has had no more dark bowel movements. She would like to utilize Vivitrol and has an appointment to be seen over at addiction medicine at 180 between 10 and 1:00 tomorrow. I surgery we will get her discharged so she can make that appointment. Vivitrol was ordered for tomorrow morning at 9 AM. Objective Data Objective Data Vital Signs: Vital Signs Temp Pulse Resp BP Pulse Ox O2 Del Method 98.5 F 76 18 123/64 H 97 Room Air 08/25/23 03:00 08/25/23 03:00 08/25/23 03:00 08/25/23 03:00 08/25/23 03:00 08/25/23 03:00 Oxygen Delivery Method Room Air Weight: 83.915 kg Body Mass Index (BMI) 31.7 Lab / Micro Data 08/25/23 06:20 08/25/23 06:20 Labs: Laboratory Results - last 24 hr 08/24/23 11:25: Hgb 12.3, Hct 37.2 08/25/23 06:20: WBC 7.1, RBC 4.44, Hgb 13.0, Hct 39.6, MCV 89.2, MCH 29.3, MCHC 32.8, RDW Std Deviation 40.4, RDW Coeff of Eulogio 12.3, Plt Count 234, MPV 10.0, Immature Gran % (Auto) 0.600, Neut % (Auto) 65.6, Lymph % (Auto) 24.7, [place] % (Auto) 6.6, Eos % (Auto) 2.1, Baso % (Auto) 0.4, Absolute Neuts (auto) 4.6, Absolute Lymphs (auto) 1.75, Nucleated RBC % 0, Sodium 138, Potassium 4.0, Chloride 108 H, Carbon Dioxide 24.0, Anion Gap 6, BUN 14, Creatinine 0.66, Estim Creat Clear Calc 103.71, Est GFR (MDRD) Af Amer 131, Est GFR (MDRD) Non-Af 109, BUN/Creatinine Ratio 21.2 H, Glucose 93, Calcium 8.0 L Physical Exam Const alert, oriented x3, no apparent distress and well nourished Constitutional Narrative: Obese, middle-aged, white female, sitting up in bed watching television patient appears comfortable and nontoxic however she does appear anxious HEENT head/scalp atraumatic and moist oral mucous membranes Resp normal respiratory effort, no retractions, no use of accessory muscles and clear to auscultation bilaterally Auscultation: Negative for rales, rhonchi or wheezes Cardio regular rate, regular rhythm, S1 normal heart sound, S2 normal heart sound, no murmurs, no rub, no gallops and no clicks GI normal to inspection, nondistended, normoactive bowel sounds and soft to palpation Extremity no clubbing, cyanosis or edema Extremity Narrative: 2+ pedal pulse is Neuro oriented x3, moves all extremities and no focal motor deficits Speech: speech normal Psych affect normal Psych Narrative: Eye contact is good, patient interacts normally Assessment & Plan Assessment/Plan (1) ETOH abuse: (2) Desire for detoxification: (3) Nausea: PLAN: Plan Alcohol abuse with pending alcohol withdrawal -Still fairly significant withdrawal symptoms however does appear to be improving -Continue phenobarbital taper -Continue CIWA with as needed Ativan -Continue supportive medication for symptom management -Continue thiamine and folate -180 following -Plan is for discharge tomorrow with Vivitrol dose being given tomorrow at 9 AM and follow-up appointment at 180 between 10 AM and 180 p.m. -Liver functions within normal limits/renal function within normal limits Nausea -Resolved -Suspect related to alcohol withdrawal -Continue p.o. Protonix -Hemoglobin is stable and stool guaiac not able to be collected as she has not had a bowel movement -Doubt patient has GI bleeding Nicotine abuse -Patient vapes -Denies the need for any nicotine replacement therapy -Will monitor DVT prophylaxis -Low risk -Encourage frequent and early ambulation CODE STATUS Full code Charges/Coding Visit Charges Inpatient E&M: 99105 Subs Hosp L2
[2023-08-25] MEDS: Ibuprofen 600 MG Tablet PO (12:38)
--- NOTE | 2023-08-25 14:56 | PN.HOSP_ITS ---
Hospitalist Note Pt left AMA.
--- NOTE | 2023-08-25 14:56 | PCM.HOSP.N ---
Hospitalist Note Pt left AMA.
== END 2023-08-25 14:39 | disposition left against medical advice (07) | DRG 770 ==
LOC: ED 16:58 → MS3 17:35
PROVIDERS: Admitting Provider Internal Medicine; Emergency Provider Emergency Medicine; PCP Family Medicine; Visit Provider Internal Medicine
DX: F10.139 Alcohol abuse with withdrawal, unspecified (principal); F17.210 Nicotine dependence, cigarettes, uncomplicated; F41.9 Anxiety disorder, unspecified; M79.10 Myalgia, unspecified site; Y90.6 Blood alcohol level of 120-199 mg/100 ml
CPT/HCPCS: 36415; 80048; 80053; 80307; 82077; 84703; 85014; 85018; 85025; 99284; J7030; J2405

== ENCOUNTER 2023-12-04 20:11 | Inpatient (IN) | payer MEDICAID, SELFPAY ==
[2023-12-04 20:12] VITALS: TEMP 36.4
--- NOTE | 2023-12-04 20:46 | EX.ED.SAOD ---
HPI History of Present Illness Chief Complaint: Substance Abuse Narrative Narrative: 33-year-old female presents at the [place] [address] for detox from alcohol. She states she was supposed to be here yesterday. Her last drink was prior to arrival that she states that she drinks at least a bottle of tequila or rum daily and has so for the last 2 to 3 years. She also relates history that she was here for detox last year, but left after 4 days. She states she is supposed to go to a residential rehabilitation facility here in [place] after detox. She complains of allover muscle aches, and dark urine. [facility] Medical History Anxiety and depression Asthma Crush injury of hand Desire for detoxification ETOH abuse History of seizure Migraine Nicotine abuse Status asthmaticus Home Medications NK 12/04/23 [History Last Taken Unknown] Allergy/AdvReac Type Severity Reaction Status Date / Time methylphenidate HCl Allergy Severe SEIZURES Verified 12/04/23 20:17 [From Ritalin] metoclopramide [From Reglan] Allergy Unknown Verified 12/04/23 20:17 tramadol AdvReac Vomiting Verified 12/04/23 20:17 Surgical History Hx of tonsillectomy Previous delivery, delivered Social History (Updated 12/04/23 @ 20:40 by Kaye Bryant) household members: children Smoking Status: Current every day smoker tobacco type: e-cigarettes ROS ROS ED ROS Narrative Constitutional: No fever, no chills. HEENT: No sore throat. No neck pain. No loss of vision. No rhinorrhea. Cardiovascular: No chest pain. No palpitations. No pedal edema. Respiratory: No cough, no shortness of breath. Abdominal: No abdominal pain. No nausea. No vomiting. Genitourinary: No dysuria. No hematuria. Dark urine. Musculoskeletal: Multiple myalgias. No arthralgias. Neurologic: No headaches. No dizziness. No lightheadedness. Skin: No rash. No change in color. Psychiatric: No depression. No anxiety. EXAM Physical Exam Narrative Exam Narrative: Afebrile. Vital signs noted. HEENT: Normocephalic. Atraumatic. PERRL, EOMI. Neck soft and supple. No point tenderness or step off. Cardiovascular: Regular rate and rhythm. No murmurs, rubs, or gallops appreciated. Respiratory: No tachypnea. Lungs clear to auscultation bilaterally. Gastrointestinal: Abdomen soft, nontender, with normoactive bowel sounds. No rebound or guarding. Neurological: Awake. Alert. Nonfocal, nonlateralizing. Skin: No rash. Normal color. No pallor. Musculoskeletal: No pedal edema. Full range of motion extremities. Psychiatric: Intermittently tearful. Const Vital Signs: 12/04/23 20:12 12/04/23 21:24 12/04/23 21:12 Temperature 97.6 F L 97.6 F L Temperature Source Oral Pulse Rate 95 98 Respiratory Rate 18 Blood Pressure 115/78 Blood Pressure Mean 90 Pulse Ox 98 MDM MDM MDM Narrative Medical decision making narrative: I reviewed her prior ED visits. She was here last year in July and was admitted for detox. She just had her last drink prior to arrival. Medical clearance labs will be obtained including serum . I reviewed her laboratory work, WBC count is normal at 7.7, hemoglobin normal at 13.9, hematocrit 41.5, platelet count normal at 261. Electrolyte panel is remarkable for chloride of 111, normal BUN of 8 and creatinine normal at 0.67, glucose appropriately elevated at 92, LFTs show AST elevated at 41 but normal ALT of 43, alk phos normal at 7.7. Serum is negative. Alcohol level is elevated 232. Urine for drugs of abuse is negative, urinalysis is negative for infection. I do not feel antibiotics are indicated. I discussed patient with Dr. Corrine Gonzalez who will admit the patient to the medical surgical floor for detoxification. Patient states that she is already set up for inpatient rehab at another facility here in [place]. Disposition is admitted. Patient is in stable condition. History & Record Review Discussion w/independent historian: Patient and Family Additional record(s) reviewed:: Prior ED visit and Prior labs Lab Data Attestation: I reviewed the patient's lab results. Labs: Laboratory Results - last 24 hr 12/04/23 12/04/23 20:54 21:05 WBC 7.7 RBC 4.73 Hgb 13.9 Hct 41.5 MCV 87.7 MCH 29.4 MCHC 33.5 RDW Std Deviation 41.5 RDW Coeff of Eulogio 12.9 Plt Count 261 MPV 9.4 Immature Gran % (Auto) 0.400 Neut % (Auto) 56.7 Lymph % (Auto) 35.6 [place] % (Auto) 5.8 Eos % (Auto) 0.8 Baso % (Auto) 0.7 Absolute Neuts (auto) 4.4 Absolute Lymphs (auto) 2.72 Nucleated RBC % 0 Sodium 141 Potassium 3.6 Chloride 111 H Carbon Dioxide 23.0 Anion Gap 7 BUN 8 Creatinine 0.67 Estim Creat Clear Calc 125.03 Est GFR (MDRD) Af Amer 129 Est GFR (MDRD) Non-Af 106 BUN/Creatinine Ratio 11.9 Glucose 92 Calcium 9.3 Phosphorus 3.7 Magnesium 2.1 Total Bilirubin 0.40 AST 41 H ALT 43 Alkaline Phosphatase 93 Total Protein 7.7 Albumin 4.1 Globulin 3.6 Albumin/Globulin Ratio 1.1 Serum , Qual NEGATIVE Urine Color Yellow Urine Clarity Clear Urine pH 7.0 Ur Specific [place] 1.010 Urine Protein Negative Urine Glucose (UA) Normal Urine Ketones Negative Urine Occult Blood Negative Urine Nitrite Negative Urine Bilirubin Negative Urine Urobilinogen Normal Ur Leukocyte Esterase Negative Urine Opiates Screen NEGATIVE Urine Methadone Screen NEGATIVE Ur Barbiturates Screen NEGATIVE Ur Phencyclidine Scrn NEGATIVE Ur Amphetamines Screen NEGATIVE MDMA (Ecstasy) Screen NEGATIVE U Benzodiazepines Scrn NEGATIVE Urine Cocaine Screen NEGATIVE U Cannabinoids Screen NEGATIVE Ur Drug Screen Comment Ethyl Alcohol 232.0 Management Discussion w/another healthcare provider: Hospitalist (Dr. Corrine Gonzalez) Discharge Plan Dx/Rx/DC Orders Clinical Impression: Desire for detoxification, Acute alcohol intoxication Disposition Disposition: Acute Care Hospital [facility]
--- NOTE | 2023-12-04 20:50 | HP.PCM.HOS_ITS ---
HPI - General General Date of Admission: 12/04/23 Date of Service: 12/04/23 Chief Complaint: EtOH detoxification HPI Narrative The patient is a 33 y/o F w/ PMHx: Anxiety and Depression, Asthma, EtOH abuse, Hx Seizure potentially following Ritalin usage, Tobacco use, Chronic migraines who presents to the [facility] ED on 12/04/23 with request for alcohol detoxification with last alcohol intake just prior to ED arrival although she notes that she h as been decreasing her amount and does have tremors, tactile disturbances, notable lower extremity restlessness, mild abdominal discomfort as well as nausea. She notes that she has had a heavy alcohol intake for at least the last 2 to 3 years. Patient interested in attaining sober status to be supportive to her children and during ED evaluation she states several times that she does not want us to let her leave. She notes this started following some kind of potentially dispute. In the ED patient does report some mild dysuria but no urinary frequency, hesitancy or retention. In the ED workup includes T97.6, heart rate 95, BP 115/78, respiratory rate 18, 98% on room air, pending CBC, CMP, ethyl alcohol level, UDS, testing as well as urinalysis upon evaluation of patient. [facility] Medical History Anxiety and depression Asthma ETOH abuse History of seizure Migraine Tobacco use Home Medications NK 12/04/23 [History Last Taken Unknown] Allergy/AdvReac Type Severity Reaction Status Date / Time methylphenidate HCl Allergy Severe SEIZURES Verified 12/04/23 20:17 [From Ritalin] metoclopramide [From Reglan] Allergy Unknown Verified 12/04/23 20:17 tramadol AdvReac Vomiting Verified 12/04/23 20:17 Family History (Updated 12/04/23 @ 21:[address] Corrine Gonzalez MD) Mother Polysubstance abuse Alcohol abuse Cervical cancer Father Polysubstance abuse Alcohol abuse Surgical History Hx of tonsillectomy Previous delivery, delivered Social History (Updated 12/04/23 @ 21:[address] Corrine Gonzalez MD) household members: children Smoking Status: Current every day smoker tobacco type: e-cigarettes alcohol intake: current alcohol intake frequency: 3 or more drinks per day details: 1/2 bottle vodka daily but amount can vary. substance use type: does not use ROS ROS Narrative Admission Review of Systems: CONSTITUTIONAL: No weight loss, fever, chills, + weakness or fatigue. HEENT: Eyes: No visual loss, blurred vision, double vision or yellow sclerae. Ears, Nose, Throat: No hearing loss, sneezing, congestion, runny nose or sore throat. SKIN: No rash or itching, lesions, wounds. CARDIOVASCULAR: No chest pain, chest pressure or chest discomfort, palpitations, edema, orthopnea, syncopal events. RESPIRATORY: No shortness of breath, cough or sputum, wheezing, hemoptysis. GASTROINTESTINAL: + anorexia, nausea, mild abdominal discomfort. No vomiting, diarrhea, melena, BRBPR. GENITOURINARY: No dysuria, frequency, urgency or retention. NEUROLOGICAL: + Tactile disturbances, tremors, restlessness. History of previous seizure with Ritalin usage per patient report. No headache, dizziness, syncope, paralysis, ataxia, numbness or tingling in the extremities, focal we akness, change in bowel or bladder control, seizure. MUSCULOSKELETAL: + muscle, back pain, joint pain or stiffness. HEMATOLOGIC: No anemia, bleeding or bruising. LYMPHATICS: No enlarged nodes. No history of splenectomy. PSYCHIATRIC: + History of anxiety and depression. ENDOCRINOLOGIC: No reports of sweating, cold or heat intolerance. No polyuria or polydipsia. ALLERGIES: No history of asthma, hives, eczema or rhinitis. Vital Signs Vital Signs Vital Signs: 12/04/23 20:12 Temperature 97.6 F L Temperature Source Oral Physical Exam Narrative Physical Examination: General: Awake, alert, oriented x 3 and cooperative, seated upright in the ED bed, restless, anxious, tremulous. Skin: Normal color, normal turgor, no icterus, no cyanosis except occasional abrasion. HEENT: AT/NC, EOMI, PERRLA, dry MM, no carotid bruits or JVD noted. Lungs: CTA bilaterally, moderate effort, mild decrease BL bases, no rales, ronchi or wheezing. Heart: Mildly tachycardic with regular rhythm; no gallop, rub audible. Abdomen: Soft, obese, mild generalized discomfort but no rebound or guarding, ND, mildly hyperactive BS, no appreciated HSM. Extremities: No cyanosis, clubbing, or edema. Neurological: Patient awake, alert, oriented as noted, cognitive function intact; pupils equally reactive to light and accommodation, cranial nerves grossly normal, moving all 4 extremities, no focal deficits, strength moderately global decrease secondary to acute presentation with withdrawal symptoms, restless, admitting tactile disturbances, mildly tremulous. Psychiatric: Affect appears very anxious, tearful, request that we not let her leave prior to being treated for full length of alcohol withdrawal, does have un derlying anxiety and depression. Results Lab / Micro Data 12/04/23 21:05 12/04/23 21:05 Assessment & Plan Assessment/Plan (1) Alcohol withdrawal: PLAN: Plan The patient is a 33 y/o F w/ PMHx: Anxiety and Depression, Asthma, EtOH abuse, Hx Seizure potentially following Ritalin usage, Tobacco use, Chronic migraines who presents to the [facility] ED on 12/04/23 with request for alcohol detoxification with last alcohol intake just prior to ED arrival although she notes that she has been decreasing her amount and does have tremors, tactile disturbances, notable lower extremity restlessness, mild abdominal discomfort as well as nausea. #1. Alcohol abuse with Acute Withdrawal with history of previous history of seizure following Ritalin usage, possibly low threshold: Will admit to MS, routine labs obtained in the ED upon presentation and pending. Given interest in sobriety, as long as testing negative, will initiate and continue on protocol with taper course of Phenobarbital, as needed gabapentin, Catapres, Bentyl, Vistaril, IV fluids, IV antiemetics, Tylenol as needed for pain. Will consult Case management for assistance for transition to next level of rehabilitation care. Mag, phos pending. Maintain on CIWA protocol concurrently. #2. Chronic asthma: Per current list on a chronic regimen, will have PRN albuterol, as noted continue to encourage tobacco cessation. #3. Anxiety and depression: Per current list not on regimen, likely contributing greatly to alcohol abuse, would benefit from continued outpatient evaluation, counseling and potentially medication. #4. Chronic migraines: Per current list not on regimen, encourage continued outpatient follow-up with primary care as needed. #5. Tobacco Abuse: Encouraged cessation, inpatient consultation per RT, NR if desired. #6. DVT prophylaxis: Low risk for type admission, encourage ambulation. Charges/Coding Visit Charges Inpatient E&M: 08933 Init Hosp L2
[2023-12-04 21:12] VITALS: PULSE 98
[2023-12-04 21:12] LABS: Absolute Lymphocyte Count 2.72 X10^3/uL (0.83-4.51); Absolute Neutrophil Count 4.4 X10^3/uL (2.0-7.7); Basophil# 0.05 X10^3/uL; Basophil% 0.7 % (0-1); Eosinophil# 0.06 X10^3/uL; Eosinophils% 0.8 % (0-5); Hematocrit 41.5 % (37-47); Hemoglobin 13.9 g/dL (12.0-15.0); Lymphocyte # 2.72 X10^3/ul (0.83-4.51); Lymphocyte % 35.6 % (19-41); Mean Corp Hgb Conc 33.5 g/dL (32-36); Mean Corpuscular Hgb 29.4 pg (27.0-32.0); Mean Corpuscular Volume 87.7 fL (81-99); Mean Platelet Vol. 9.4 fl (6.2-12.0); Monocyte# 0.44 X10^3/uL; Monocyte% 5.8 % (0-10); NRBC Flagged by Analyzer 0 % (0-5); Neutrophil # 4.35 X10^3/uL (2.7-7.7); Neutrophil % 56.7 % (47-70); Platelet Count 261 K/mm3 (150-450); RBC Distribution Width CV 12.9 % (11.6-14.6); RBC Distribution Width SD 41.5 fl (35.1-43.9); Red Blood Count 4.73 M/mm3 (4.2-5.4); White Blood Count 7.7 K/mm3 (4.4-11.0)
[2023-12-04 21:19] LABS: Bacteria 0 SEEN /hpf (None Seen); Mucous, Urine 0 SEEN /hpf (<or=2+); Red Blood Cells-Urine 0 SEEN /hpf (0-5); Squamous Epithelial Cells - UA 0 SEEN /hpf (5-10); White Blood Cells 0 SEEN /hpf (0-5)
[2023-12-04 21:21] LABS: Internal QC Validated? YES +Cl - CLEAR BKGD; Pregnancy, Serum, hCG Quali. NEGATIVE Negative
[2023-12-04] MEDS: Ondansetron 4 MG/2 ML Vial IV (21:21)
[2023-12-04 21:22] VITALS: BMI 32.8
[2023-12-04 21:24] VITALS: BP 115/78; PULSE 95; RESP 18; TEMP 36.4; O2SAT 98
[2023-12-04 21:29] LABS: ALB/GLOB Ratio 1.1 RATIO (0.9-2.4); AST(SGOT) 41 U/L (15-37); Alanine Aminotransfer ALT/SGPT 43 U/L (13-56); Albumin, Serum 4.1 g/dL (3.2-5.0); Alkaline Phosphatase 93 U/L (45-117); Anion Gap 7 (5-15); BUN 8 mg/dL (7-18); BUN/Creat Ratio 11.9 RATIO (10-20); Calcium,Total 9.3 mg/dL (8.5-10.1); Chloride 111 mmol/L (98-107); Creatinine, Serum 0.67 mg/dL (0.55-1.02); EST Glomerular Filtration Rate 106 mL/min (>60); Est Glom Filt Rate - Afr Amer 129 mL/min (>60); Estimated Creatinine Clearance 125.03 ml/min; Globulin 3.6 g/dL (2.2-4.2); Glucose 92 mg/dL (74-106); Magnesium 2.1 mg/dL (1.6-2.6); Potassium 3.6 mmol/L (3.5-5.1); Protein, Total 7.7 g/dL (6.4-8.2); Sodium Level 141 mmol/L (136-145)
[2023-12-04 21:30] LABS: Color, Urine Yellow (Yellow); Glucose, Dipstick Normal (Normal); Ketone-Dipstick Negative (Negative); Leukocyte Esterase-Dipstick Negative /ul (Negative); Nitrite-Dipstick Negative (Negative); Occult Blood-Urine Negative /ul (Negative); Protein-Dipstick Negative (Negative); Urine Bilirubin Dipstick Negative (Negative); Urine Clarity Clear (Clear); Urine Urobilinogen Normal (Normal)
[2023-12-04 21:31] LABS: Phosphorus 3.7 mg/dL (2.5-4.9)
[2023-12-04 21:34] LABS: Amphetamine Urine VISTA NEGATIVE (<1000 ng/mL); Barbiturate Urine VISTA NEGATIVE (< 200 ng/mL); Benzodiazepine Urine VISTA NEGATIVE (< 200 ng/mL); Cocaine Urine VISTA NEGATIVE (< 300 ng/mL); Ecstacy Urine VISTA NEGATIVE (< 500 ng/mL); Methadone Urine VISTA NEGATIVE (< 300 ng/mL); PCP Urine VISTA NEGATIVE (< 25 ng/mL); THC Urine VISTA NEGATIVE (< 50 ng/mL); Vista UDS pH Range 5
[2023-12-04 22:25] VITALS: BMI 32.2
[2023-12-04] MEDS: Lactated Ringers 1,000 ML 125 ML IV (22:35)
[2023-12-04] MEDS: Gabapentin 300 MG Capsule PO (22:39)
[2023-12-04] MEDS: hydrOXYzine PAM 25 MG Capsule 50 MG PO (22:39)
[2023-12-04] MEDS: Ondansetron 8 MG Tablet PO (22:41)
[2023-12-04] MEDS: traZODone 100 MG Tablet PO (22:41)
[2023-12-04] MEDS: Phenobarbital 32.4 MG Tablet 64.7999999999999972 MG PO (22:41)
[2023-12-04 22:56] VITALS: BP 131/80; PULSE 78; RESP 16; TEMP 36.7; O2SAT 100
[2023-12-04 23:02] VITALS: BP 131/80; PULSE 78; RESP 16; TEMP 36.7; O2SAT 100
[2023-12-05] VITALS (7 sets, daily range): BP systolic 103–120; BP diastolic 62–81; PULSE 63–88; RESP 16–18; TEMP 36.5–36.9; O2SAT 93–98
[2023-12-05] MEDS: Phenobarbital 32.4 MG Tablet 64.7999999999999972 MG PO ×6 (02:10→22:31)
[2023-12-05] MEDS: Ibuprofen 600 MG Tablet PO ×2 (06:21→18:46)
[2023-12-05] MEDS: hydrOXYzine PAM 25 MG Capsule 50 MG PO ×3 (06:21→20:10)
[2023-12-05] MEDS: Thiamine Hydrochloride 100 MG Tablet PO (08:28)
[2023-12-05] MEDS: Folic Acid 1 MG Tablet PO (08:28)
[2023-12-05] MEDS: Multivitamins,Ther W-Minerals Tablet 1 TABLET PO (08:28)
--- NOTE | 2023-12-05 09:06 | PN.HOSP_ITS ---
Reason for Visit Reason for Visit: Diagnoses Alcohol use, unspecified with withdrawal, unspecified (12/04/23) Objective Data Objective Data Vital Signs: Vital Signs Temp Pulse Resp BP Pulse Ox O2 Del Method 98.1 F 83 16 104/75 93 Room Air 12/05/23 06:38 12/05/23 06:38 12/05/23 06:38 12/05/23 06:38 12/05/23 07:57 12/05/23 08:26 Oxygen Delivery Method Room Air Weight: 85.2 kg Body Mass Index (BMI) 32.2 Intake & Output: Intake and Output for Last 24 Hours 12/03/23 12/04/23 12/05/23 23:59 23:59 23:59 Intake Total 1222.92 / 1222.92 Balance 1222.92 / 1222.92 Lab / Micro Data 12/04/23 21:05 12/04/23 21:05 Labs: Laboratory Results - last 24 hr 12/04/23 20:54: Urine Color Yellow, Urine Clarity Clear, Urine pH 7.0, Ur Specific [place] 1.010, Urine Protein Negative, Urine Glucose (UA) Normal, Urine Ketones Negative, Urine Occult Blood Negative, Urine Nitrite Negative, Urine Bilirubin Negative, Urine Urobilinogen Normal, Ur Leukocyte Esterase Negative, Urine RBC 0 SEEN, Urine WBC 0 SEEN, Ur Squamous Epith Cells 0 SEEN, Urine Bacteria 0 SEEN, Urine Mucus 0 SEEN, Urine Opiates Screen NEGATIVE, Urine Methadone Screen NEGATIVE, Ur Barbiturates Screen NEGATIVE, Ur Phencyclidine Scrn NEGATIVE, Ur Amphetamines Screen NEGATIVE, MDMA (Ecstasy) Screen NEGATIVE, U Benzodiazepines Scrn NEGATIVE, Urine Cocaine Screen NEGATIVE, U Cannabinoids Screen NEGATIVE, Ur Drug Screen Comment 12/04/23 21:05: WBC 7.7, RBC 4.73, Hgb 13.9, Hct 41.5, MCV 87.7, MCH 29.4, MCHC 33.5, RDW Std Deviation 41.5, RDW Coeff of Eulogio 12.9, Plt Count 261, MPV 9.4, Immature Gran % (Auto) 0.400, Neut % (Auto) 56.7, Lymph % (Auto) 35.6, [place] % (Auto) 5.8, Eos % (Auto) 0.8, Baso % (Auto) 0.7, Absolute Neuts (auto) 4.4, Absolute Lymphs (auto) 2.72, Nucleated RBC % 0, Sodium 141, Potassium 3.6, Chloride 111 H, Carbon Dioxide 23.0, Anion Gap 7, BUN 8, Creatinine 0.67, Estim Creat Clear Calc 125.03, Est GFR (MDRD) Af Amer 129, Est GFR (MDRD) Non-Af 106, BUN/Creatinine Ratio 11.9, Glucose 92, Calcium 9.3, Phosphorus 3.7, Magnesium 2.1, Total Bilirubin 0.40, AST 41 H, ALT 43, Alkaline Phosphatase 93, Total Protein 7.7, Albumin 4.1, Globulin 3.6, Albumin/Globulin Ratio 1.1, Serum , Qual NEGATIVE, Ethyl Alcohol 232.0 Physical Exam Narrative Physical Examination: General: Awake, alert, oriented x 3 and cooperative, seated upright in the ED bed, restless, anxious, tremulous. Skin: Normal color, normal turgor, no icterus, no cyanosis except occasional abrasion. HEENT: AT/NC, EOMI, PERRLA, dry MM, no carotid bruits or JVD noted. Lungs: CTA bilaterally, moderate effort, mild decrease BL bases, no rales, r onchi or wheezing. Heart: Mildly tachycardic with regular rhythm; no gallop, rub audible. Abdomen: Soft, obese, mild generalized discomfort but no rebound or guarding, ND, mildly hyperactive BS, no appreciated HSM. Extremities: No cyanosis, clubbing, or edema. Neurological: Patient awake, alert, oriented as noted, cognitive function intact; pupils equally reactive to light and accommodation, cranial nerves grossly normal, moving all 4 extremities, no focal deficits, strength moderately global decrease secondary to acute presentation with withdrawal symptoms, restless, admitting tactile disturbances, mildly tremulous. Psychiatric: Affect appears very anxious, tearful, request that we not let her leave prior to being treated for full length of alcohol withdrawal, does have underlying anxiety and depression. Assessment & Plan Assessment/Plan (1) Alcohol withdrawal: PLAN: Plan The patient is a 33 y/o F w/ PMHx: Anxiety and Depression, Asthma, EtOH abuse, Hx Seizure potentially following Ritalin usage, Tobacco use, Chronic migraines who presents to the [facility] ED on 12/04/23 with request for alcohol detoxification with last alcohol intake just prior to ED arrival although she notes that she has been decreasing her amount and does have tremors, tactile disturbances, notable lower extremity restlessness, mild abdominal discomfort as well as nausea. #1. Alcohol abuse with Acute Withdrawal with history of previous history of seizure following Ritalin usage, possibly low threshold: Will admit to MS, routine labs obtained in the ED upon presentation and pending. Given interest in sobriety, as long as testing negative, will initiate and continue on protocol with taper course of Phenobarbital, as needed gabapentin, Catapres, Bentyl, Vistaril, IV fluids, IV antiemetics, Tylenol as needed for pain. Will consult Case management for assistance for transition to next level of rehabilitation care. Mag, phos pending. Maintain on CIWA protocol concurrently. #2. Chronic asthma: Per current list on a chronic regimen, will have PRN albuterol, as noted continue to encourage tobacco cessation. #3. Anxiety and depression: Per current list not on regimen, likely contributing greatly to alcohol abuse, would benefit from continued outpatient evaluation, counseling and potentially medication. #4. Chronic migraines: Per current list not on regimen, encourage continued outpatient follow-up with primary care as needed. #5. Tobacco Abuse: Encouraged cessation, inpatient consultation per RT, NR if desired. #6. DVT prophylaxis: Low risk for type admission, encourage ambulation.
--- NOTE | 2023-12-05 09:06 | PCM.PN.HOSP ---
Reason for Visit Reason for Visit: Diagnoses Alcohol use, unspecified with withdrawal, unspecified (12/04/23) Subjective Subjective Patient is a 33-year-old lady with history of chronic alcohol dependence admitted with acute alcohol withdrawal Objective Data Objective Data Vital Signs: Vital Signs Temp Pulse Resp BP Pulse Ox O2 Del Method 98.1 F 83 16 104/75 93 Room Air 12/05/23 06:38 12/05/23 06:38 12/05/23 06:38 12/05/23 06:38 12/05/23 07:57 12/05/23 08:26 Oxygen Delivery Method Room Air Weight: 85.2 kg Body Mass Index (BMI) 32.2 Intake & Output: Intake and Output for Last 24 Hours 12/03/23 12/04/23 12/05/23 23:59 23:59 23:59 Intake Total 1222.92 / 1222.92 Balance 1222.92 / 1222.92 Lab / Micro Data 12/04/23 21:05 12/04/23 21:05 Labs: Laboratory Results - last 24 hr 12/04/23 20:54: Urine Color Yellow, Urine Clarity Clear, Urine pH 7.0, Ur Specific [place] 1.010, Urine Protein Negative, Urine Glucose (UA) Normal, Urine Ketones Negative, Urine Occult Blood Negative, Urine Nitrite Negative, Urine Bilirubin Negative, Urine Urobilinogen Normal, Ur Leukocyte Esterase Negative, Urine RBC 0 SEEN, Urine WBC 0 SEEN, Ur Squamous Epith Cells 0 SEEN, Urine Bacteria 0 SEEN, Urine Mucus 0 SEEN, Urine Opiates Screen NEGATIVE, Urine Methadone Screen NEGATIVE, Ur Barbiturates Screen NEGATIVE, Ur Phencyclidine Scrn NEGATIVE, Ur Amphetamines Screen NEGATIVE, MDMA (Ecstasy) Screen NEGATIVE, U Benzodiazepines Scrn NEGATIVE, Urine Cocaine Screen NEGATIVE, U Cannabinoids Screen NEGATIVE, Ur Drug Screen Comment 12/04/23 21:05: WBC 7.7, RBC 4.73, Hgb 13.9, Hct 41.5, MCV 87.7, MCH 29.4, MCHC 33.5, RDW Std Deviation 41.5, RDW Coeff of Eulogio 12.9, Plt Count 261, MPV 9.4, Immature Gran % (Auto) 0.400, Neut % (Auto) 56.7, Lymph % (Auto) 35.6, [place] % (Auto) 5.8, Eos % (Auto) 0.8, Baso % (Auto) 0.7, Absolute Neuts (auto) 4.4, Absolute Lymphs (auto) 2.72, Nucleated RBC % 0, Sodium 141, Potassium 3.6, Chloride 111 H, Carbon Dioxide 23.0, Anion Gap 7, BUN 8, Creatinine 0.67, Estim Creat Clear Calc 125.03, Est GFR (MDRD) Af Amer 129, Est GFR (MDRD) Non-Af 106, BUN/Creatinine Ratio 11.9, Glucose 92, Calcium 9.3, Phosphorus 3.7, Magnesium 2.1, Total Bilirubin 0.40, AST 41 H, ALT 43, Alkaline Phosphatase 93, Total Protein 7.7, Albumin 4.1, Globulin 3.6, Albumin/Globulin Ratio 1.1, Serum , Qual NEGATIVE, Ethyl Alcohol 232.0 Physical Exam Narrative GENERAL: cooperative HEENT: Atraumatic; normocephalic EYES; Anicteric, Normal Conjunctiva NECK; supple, normal thyroid, RESPIRATORY: Diminished to auscultation CARDIOVASCULAR: Regular S1 S2, GI: soft, normoactive bowel sounds, : No Renal angle tenderness; EXTREMITIES: No edema, no clubbing, MUSCULOSKELETAL: no muscle wasting NEURO: Awake; no lateralizing signs. SKIN: No Rash PSYCH; Flat affect Assessment & Plan Assessment/Plan (1) Alcohol withdrawal: PLAN: Plan Patient is a 33-year-old lady with history of chronic alcohol dependence admitted with acute alcohol withdrawal 1. Acute alcohol withdrawal ? Patient has been admitted to regular nursing floor being managed with phenobarb taper in addition to adjuvant medications 2. Chronic intermittent asthma ? Currently not in exacerbation aerosol treatments as needed 3. Class I obesity with BMI of 32 ? Weight loss advised 4. Chronic migraines ? Currently stable 5. Tobacco dependence - Counseled on cessation, offered nicotine patch for tobacco cravings 6. DVT prophylaxis ? Low risk encourage ambulation Time spent in the patient's overall evaluation,decision-making process, review of diagnostic data, adjustment of management, discussion with other providers, nursing nursing and ancillary staff involved in patient's care documentation, 35 Minutes Charges/Coding Visit Charges Inpatient E&M: 87407 Subs Hosp L2
[2023-12-05] MEDS: Loperamide 2 MG Capsule PO (10:35)
[2023-12-05] MEDS: Dicyclomine 10 MG Capsule 20 MG PO ×2 (10:36→20:10)
[2023-12-05] MEDS: 0.9% Saline Lock 10 ML Syringe IV (11:12)
[2023-12-05] MEDS: LORazepam 2 MG/ML Syringe IV (11:12)
--- NOTE | 2023-12-05 11:39 | ADDICTION ---
This auto service writer met with PT to conduct ASAM, MSE, AUDIT, DUDIT assessments and to plan for d/c. PT A+Ox4 and participated actively. All assessments completed and placed in PT's chart. PT plans to f/u with [facility] at [facility] for follow-up in patient treatment services on Saturday. [facility] will transport to treatment.
[2023-12-05] MEDS: Acetaminophen 325 MG Tablet 650 MG PO ×2 (14:52→20:10)
[2023-12-05] MEDS: LORazepam 1 MG Tablet 2 MG PO ×2 (16:54→22:02)
[2023-12-05] MEDS: traZODone 100 MG Tablet PO (20:11)
[2023-12-05] MEDS: Gabapentin 300 MG Capsule PO (20:11)
--- NOTE | 2023-12-05 23:01 | NURSING ---
Assisted pt to the BR. while fixing pts bed found a vape under pts green pad. told pt he is not allowed to have that and took it and added it to her belongings tote at the nurses station. made shipyard helperEMILY lozano.
[2023-12-06] MEDS: LORazepam 1 MG Tablet 2 MG PO (00:21)
[2023-12-06] MEDS: hydrOXYzine PAM 25 MG Capsule 50 MG PO ×2 (01:20→06:25)
[2023-12-06 02:21] VITALS: BP 112/53; PULSE 61; RESP 16; TEMP 36.6; O2SAT 97
[2023-12-06] MEDS: Acetaminophen 325 MG Tablet 650 MG PO (02:23)
[2023-12-06] MEDS: LORazepam 2 MG/ML Syringe IV ×2 (02:24→04:35)
[2023-12-06] MEDS: Phenobarbital 32.4 MG Tablet 64.7999999999999972 MG PO ×4 (02:24→18:38)
[2023-12-06] MEDS: 0.9% Saline Lock 10 ML Syringe IV ×2 (02:24→04:36)
[2023-12-06] MEDS: Ondansetron 8 MG Tablet PO (02:24)
[2023-12-06] MEDS: Gabapentin 300 MG Capsule PO ×2 (06:26→19:55)
--- NOTE | 2023-12-06 07:24 | PCM.PN.HOSP ---
Reason for Visit Reason for Visit: Diagnoses Alcohol use, unspecified with withdrawal, unspecified (12/04/23) Subjective Subjective Patient seen appears delirious this a.m. Objective Data Objective Data Vital Signs: Vital Signs Temp Pulse Resp BP Pulse Ox O2 Del Method 98 F 61 16 112/53 L 97 Room Air 12/06/23 02:21 12/06/23 02:21 12/06/23 02:21 12/06/23 02:21 12/06/23 02:21 12/06/23 02:21 Oxygen Delivery Method Room Air Weight: 85.2 kg Body Mass Index (BMI) 32.2 Intake & Output: Intake and Output for Last 24 Hours 12/04/23 12/05/23 12/06/23 23:59 23:59 23:59 Intake Total 1222.92 / 1222.92 Balance 1222.92 / 1222.92 Lab / Micro Data 12/04/23 21:05 12/04/23 21:05 Physical Exam Narrative GENERAL: Delirious HEENT: Atraumatic; normocephalic EYES; Anicteric, Normal Conjunctiva NECK; supple, normal thyroid, RESPIRATORY: Diminished to auscultation CARDIOVASCULAR: Regular S1 S2, GI: soft, normoactive bowel sounds, : No Renal angle tenderness; EXTREMITIES: No edema, no clubbing, MUSCULOSKELETAL: no muscle wasting NEURO: Awake; no lateralizing signs. SKIN: No Rash PSYCH; Flat affect Assessment & Plan Assessment/Plan (1) Alcohol withdrawal: PLAN: Plan Patient is a 33-year-old lady with history of chronic alcohol dependence admitted with acute alcohol withdrawal 1. Acute alcohol withdrawal ? Patient has been admitted to regular nursing floor being managed with phenobarb taper in addition to adjuvant medications ? 12/06/2023 patient appears to be delirious this a.m. will continue with phenobarb taper if patient delirium worsens plan will be to transfer the patient to the intensive care unit 2. Chronic intermittent asthma ? Currently not in exacerbation aerosol treatments as needed 3. Class I obesity with BMI of 32 ? Weight loss advised 4. Chronic migraines ? Currently stable 5. Tobacco dependence - Counseled on cessation, offered nicotine patch for tobacco cravings 6. DVT prophylaxis ? Low risk encourage ambulation Time spent in the patient's overall evaluation,decision-making process, review of diagnostic data, adjustment of management, discussion with other providers, nursing nursing and ancillary staff involved in patient's care documentation, 35 Minutes Charges/Coding Visit Charges Inpatient E&M: 20293 Subs Hosp L2
[2023-12-06 08:00] VITALS: BP 127/83; PULSE 88; RESP 18; TEMP 36.6; O2SAT 97
[2023-12-06 09:21] VITALS: O2SAT 97
[2023-12-06 14:20] VITALS: BP 107/73; PULSE 65; RESP 18; TEMP 36.6; O2SAT 98
--- NOTE | 2023-12-06 15:48 | NURSING ---
Pt was assisted to bathroom with 2 LAUNDRY HOUSEKEEPER attempted to walk to bed and pt became weak lowered back to the toilet and became a max assist and was taken by wheelchair to room 325 so she could be closer to the nurses station. made aware.
[2023-12-06 19:53] VITALS: BP 121/84; PULSE 81; RESP 16; TEMP 36.4; O2SAT 97
[2023-12-06] MEDS: Ibuprofen 600 MG Tablet PO (19:55)
[2023-12-06] MEDS: traZODone 100 MG Tablet PO (19:55)
--- NOTE | 2023-12-06 22:32 | PCM.HOSP.N ---
Hospitalist Note Patient called for ride and left AMA once arrived. Patient left AMA 12/06/23 @ 22:00.
--- NOTE | 2023-12-07 06:47 | PCM.DC.SUM ---
Providers Date of Admission: 12/04/23 Date of Discharge: 12/06/23 Primary Care Physician: Dr. Nadeem Nesbitt MD Reason For Visit: ETOH DETOXIFICATION Diagnosis Discharge Diagnosis (1) Alcohol withdrawal: Status: Acute Code(s): F10.939 - Alcohol use, unspecified with withdrawal, unspecified Plan Patient is a 33-year-old lady with history of chronic alcohol dependence admitted with acute alcohol withdrawal 1. Acute alcohol withdrawal ? Patient has been admitted to regular nursing floor being managed with phenobarb taper in addition to adjuvant medications ? 12/06/2023 patient appears to be delirious this a.m. will continue with phenobarb taper if patient delirium worsens plan will be to transfer the patient to the intensive care unit -Patient left AGAINST MEDICAL ADVICE therefore made for patient to rescind her decision proved futile 2. Chronic intermittent asthma ? Currently not in exacerbation aerosol treatments as needed 3. Class I obesity with BMI of 32 ? Weight loss advised 4. Chronic migraines ? Currently stable 5. Tobacco dependence - Counseled on cessation, offered nicotine patch for tobacco cravings 6. DVT prophylaxis ? Low risk encourage ambulation Time spent in the patient's overall evaluation,decision-making process, review of diagnostic data, adjustment of management, discussion with other providers, nursing nursing and ancillary staff involved in patient's care documentation, 35 Minutes Medications at Discharge Home Medications NK 12/04/23 Weight / BMI Weight Weight: 85.2 kg Body Mass Index (BMI) 32.2 ABG / Lab / Microbiology Data 12/04/23 21:05 12/04/23 21:05 D/C Instructions Discharge Diet: No restrictions Discharge Activity: Return to Normal Activity Call your doctor if you observe: Fever of 101 or Higher, Shortness of breath, Fainting spells and Chest pain Meaningful Use Info Meaningful Use Diagnoses (Choose all that apply): None applicable Discharge Plan Admission Admit Date/Time: 12/04/23 20:51 Attending Provider: Ron Cohen Primary Care Provider: Nadeem Nesbitt Consulting Providers: Corrine Gonzalez Discharge Orders/Prescriptions Prescriptions: No Action NK Referrals / Follow Up: Nadeem Nesbitt MD [Primary Care Provider] - Disposition Disposition (needs filled in before D/C Order can be placed): Against Medical Advice Charges/Coding Visit Charges Inpatient E&M: 00765 Disch Hosp >30min
== END 2023-12-06 22:00 | disposition left against medical advice (07) | DRG 770 ==
LOC: ED 21:48 → MS3 21:53
PROVIDERS: Admitting Provider Family Medicine; Emergency Provider Emergency Medicine; PCP Family Medicine; Visit Provider Internal Medicine
DX: F10.239 Alcohol dependence with withdrawal, unspecified (principal); E66.9 Obesity, unspecified; J45.909 Unspecified asthma, uncomplicated; F32.A Depression, unspecified; F17.210 Nicotine dependence, cigarettes, uncomplicated; G43.709 Chronic migraine without aura, not intractable, without status migrainosus; M79.10 Myalgia, unspecified site; F41.9 Anxiety disorder, unspecified; Z68.32 Body mass index [BMI] 32.0-32.9, adult; Y90.7 Blood alcohol level of 200-239 mg/100 ml
CPT/HCPCS: 80053; 80307; 80320; 81001; 83735; 84100; 84703; 85025; 99284; 99406; J7120; A4216; G0480; J2405

== ENCOUNTER 2023-12-07 16:27 | Observation (INO) | payer MEDICAID, SELFPAY ==
[2023-12-07 16:27] VITALS: BP 135/86; PULSE 104; RESP 18; TEMP 35.7; O2SAT 94; BMI 33.7
--- NOTE | 2023-12-07 17:26 | EDS_ITS ---
HPI History of Present Illness Chief Complaint: ETOH Intox Informant: patient Narrative Narrative: Patient returns to the ER asking for help with alcohol detox. She was admitted December 03 and signed out AMA late last night. She states that she was having hallucinations and also thought staff was trying to hurt her last night when she signed out and left. She continued to have some hallucinations at home. She did have 3-1/2 shots of alcohol tonight to help with her withdrawal symptoms. She pulled out the rest of the bottle and asked family to bring her back knowing that she needs help to stop drinking. Hospitalist note from yesterday does report patient had some delirium. PFSH PFS Medical History Anxiety and depression Asthma ETOH abuse History of seizure Migraine Tobacco use Home Medications NK 12/04/23 [History Last Taken Unknown] Allergy/AdvReac Type Severity Reaction Status Date / Time methylphenidate HCl Allergy Severe SEIZURES Verified 12/07/23 16:27 [From Ritalin] metoclopramide [From Reglan] Allergy Unknown Verified 12/07/23 16:27 tramadol AdvReac Vomiting Verified 12/07/23 16:27 Family History Mother Polysubstance abuse Alcohol abuse Cervical cancer Father Polysubstance abuse Alcohol abuse Surgical History Hx of tonsillectomy Previous delivery, delivered Social History household members: children Smoking Status: Current every day smoker tobacco type: e-cigarettes alcohol intake: current alcohol intake frequency: 3 or more drinks per day details: 1/2 bottle vodka daily but amount can vary. substance use type: does not use ROS ROS ED Constitutional Constitutional ED: Denies chills or fever(s) Eyes Eyes: Denies discharge from eye(s) ENT ENT ED: Denies discharge from eye(s), rhinorrhea or sore throat Cardiovascular Cardiovascular: Denies chest pain or palpitations Respiratory/Chest Respiratory/Chest: Denies cough or dyspnea Gastrointestinal Gastrointestinal: Reports nausea; Denies abdominal pain, diarrhea or vomiting Genitourinary Genitourinary ED: Denies dysuria Musculoskeletal Musculoskeletal: Reports extremity pain; Denies back pain Integumentary Reports other Details: Bruising ; Denies Abrasions or rash Neurologic Neurologic: Reports weakness; Denies headache(s) Psychiatric Psychiatric: Reports anxiety; Denies depression Allergic/Immunologic Allergic/Immunologic ED: Denies lip swelling or urticaria EXAM Physical Exam Const Vital Signs: 12/07/23 16:27 Temperature 96.3 F L Temperature Source Temporal Pulse Rate 104 H Respiratory Rate 18 Blood Pressure 135/86 H Blood Pressure Mean 102 Pulse Ox 94 Oxygen Delivery Method Room Air Positive well nourished and well developed General Appearance ED: well developed HEENT Reports moist mucous membranes Eyes EOMs intact bilaterally Chest Wall inspection of chest normal and palpation of chest normal Resp normal respiratory effort and clear to auscultation bilaterally Cardio Rate: tachycardic GI soft to palpation and non-tender Neuro oriented x3 Neuro Narrative: Intermittently slow to answer questions but alert and oriented x 3. No focal neurologic deficit. MDM MDM MDM Narrative Medical decision making narrative: Patient's note from her recent admission is reviewed. IV line will be established and she will be given a small dose of Ativan. We will redraw her addiction medicine labs and I will speak with hospitalist regarding admission. Lab Data Labs: Laboratory Results - last 24 hr 12/07/23 17:35 WBC 6.4 RBC 4.44 Hgb 13.2 Hct 40.0 MCV 90.1 MCH 29.7 MCHC 33.0 RDW Std Deviation 43.7 RDW Coeff of Eulogio 13.3 Plt Count 239 MPV 10.0 Immature Gran % (Auto) 0.300 Neut % (Auto) 72.5 H Lymph % (Auto) 18.9 L [place] % (Auto) 6.9 Eos % (Auto) 0.9 Baso % (Auto) 0.5 Absolute Neuts (auto) 4.6 Absolute Lymphs (auto) 1.21 Nucleated RBC % 0 Discharge Plan Dx/Rx/DC Orders Clinical Impression: Desire for detoxification, ETOH abuse Disposition Disposition: Acute Care Hospital [facility]
[2023-12-07] MEDS: Lorazepam 2 MG/ML WCH Syringe 0.5 MG IV (17:44)
[2023-12-07 17:53] LABS: Absolute Lymphocyte Count 1.21 X10^3/uL (0.83-4.51); Absolute Neutrophil Count 4.6 X10^3/uL (2.0-7.7); Basophil# 0.03 X10^3/uL; Basophil% 0.5 % (0-1); Eosinophil# 0.06 X10^3/uL; Eosinophils% 0.9 % (0-5); Hemoglobin 13.2 g/dL (12.0-15.0); Lymphocyte # 1.21 X10^3/ul (0.83-4.51); Lymphocyte % 18.9 % (19-41); Mean Corpuscular Hgb 29.7 pg (27.0-32.0); Mean Corpuscular Volume 90.1 fL (81-99); Monocyte# 0.44 X10^3/uL; Monocyte% 6.9 % (0-10); NRBC Flagged by Analyzer 0 % (0-5); Neutrophil # 4.63 X10^3/uL (2.7-7.7); Neutrophil % 72.5 % (47-70); Platelet Count 239 K/mm3 (150-450); RBC Distribution Width CV 13.3 % (11.6-14.6); RBC Distribution Width SD 43.7 fl (35.1-43.9); Red Blood Count 4.44 M/mm3 (4.2-5.4); White Blood Count 6.4 K/mm3 (4.4-11.0)
--- NOTE | 2023-12-07 17:58 | PCM.HP.STD ---
[facility] - General General Date of Admission: 12/07/23 Date of Service: 12/07/23 Chief Complaint: Inpatient detoxification HPI Narrative ABBIE CHAPPELL, is a 33 F with past medical history of anxiety, depression, asthma, alcohol use disorder, seizures potentially following Ritalin use, smoking, chronic migraines who presents for evaluation for alcohol detoxification. She has had a heavy alcohol use since the last 3 years and drinks about send 50 mL of rum every day and few drinks of beers. She was admitted on 12/04/2023 but took AMA on 12/06/2023 following she developing some delusions and hallucinations. She reports that due to her hallucinations she believed to be workable to harm her and wanted discharge. She is motivated again to complete the detoxification. Since her discharge she only had 1 drink of alcohol. [facility] Medical History Anxiety and depression Asthma ETOH abuse History of seizure Migraine Tobacco use Home Medications NK 12/04/23 [History Last Taken Unknown] Allergy/AdvReac Type Severity Reaction Status Date / Time methylphenidate HCl Allergy Severe SEIZURES Verified 12/07/23 16:27 [From Ritalin] metoclopramide [From Reglan] Allergy Unknown Verified 12/07/23 16:27 tramadol AdvReac Vomiting Verified 12/07/23 16:27 Family History Mother Polysubstance abuse Alcohol abuse Cervical cancer Father Polysubstance abuse Alcohol abuse Surgical History Hx of tonsillectomy Previous delivery, delivered Social History household members: children Smoking Status: Current every day smoker tobacco type: e-cigarettes alcohol intake: current alcohol intake frequency: 3 or more drinks per day details: 1/2 bottle vodka daily but amount can vary. substance use type: does not use ROS Review of Systems ROS Unobtainable: Denies due to encephalopathy, due to endotracheal tube, due to mental condition, due to mental status or other Constitutional Constitutional: Reports anorexia; Denies change in weight, chills, fatigue, fever(s), malaise, night sweats, weakness or other Eyes Eyes: Denies blurry vision, change in eye color, change in vision, discharge from eye(s), double vision, erythema, eye pain, loss of vision or other ENT HEENT: Denies abnormal hearing, dysphagia, ear pain, epistaxis, headache(s), hearing loss, nasal congestion, nasal discharge, post nasal drip, sinus pressure, sore throat or other Cardiovascular Cardiovascular: Denies chest pain, claudication, dyspnea on exertion, edema, lightheadedness, orthopnea, palpitations, paroxysmal nocturnal dyspnea, rapid heart rate, syncope or other Respiratory/Chest Respiratory/Chest: Denies cough, dyspnea, excessive phlegm production, hemoptysis, productive cough, shortness of breath at rest, shortness of breath with exertion, wheezing or other Gastrointestinal Gastrointestinal: Denies abdominal pain, coffee ground emesis, constipation, diarrhea, dyspepsia, hematemesis, hematochezia, loose stools, melena, nausea, vomiting or other Genitourinary Genitourinary: Denies burning urination, difficulty urinating, dysuria, hematuria, nocturia, urinary frequency, urinary hesitancy, urinary incontinence, urinary urgency or other Musculoskeletal Musculoskeletal: Denies arthralgias, back pain, joint pain, joint stiffness, joint swelling, myalgias, neck pain or other Neurologic Neurologic: Denies abnormal gait, abnormal speech, confusion, disequilibrium, dizziness, focal weakness, headache(s), numbness, paresthesias, seizure-like activity, seizures, syncope, tingling, tremor(s) or other Psychiatric Psychiatric: Denies anxiety, depression, homicidal ideation, suicidal ideation or other Endocrine Endocrinology: Denies change in body appearance, cold intolerance, excessive sweating, heat intolerance, polydipsia, polyuria or other Hematologic/Lymphatic Hematologic/Lymphatic: Denies anemia, easy bleeding, easy bruising, lymphadenopathy or other Allergic/Immunologic Allergic/Immunologic: Denies rhinitis, hives, eczemia, asthma or other Vital Signs Vital Signs Vital Signs: 12/07/23 16:27 Temperature 96.3 F L Temperature Source Temporal Pulse Rate 104 H Respiratory Rate 18 Blood Pressure 135/86 H Blood Pressure Mean 102 Pulse Ox 94 Oxygen Delivery Method Room Air Weight Weight: 196 lb 11.2 oz Body Mass Index (BMI) 33.7 Physical Exam Const alert, oriented x3 and no apparent distress HEENT normocephalic Eyes PERRL Neck no lymphadenopathy Resp normal respiratory effort Cardio regular rate and regular rhythm GI normal to inspection, nondistended, normoactive bowel sounds Extremity normal to inspection Neuro oriented x3 and CN's II-XII intact bilaterally Results Medical Records Data Attestation: I reviewed the patient's medical records Lab / Micro Data Attestation: I reviewed the patient's lab results. 12/07/23 17:35 12/07/23 17:35 Labs: Laboratory Results - last 24 hr 12/07/23 17:35: WBC 6.4, RBC 4.44, Hgb 13.2, Hct 40.0, MCV 90.1, MCH 29.7, MCHC 33.0, RDW Std Deviation 43.7, RDW Coeff of Eulogio 13.3, Plt Count 239, MPV 10.0, Immature Gran % (Auto) 0.300, Neut % (Auto) 72.5 H, Lymph % (Auto) 18.9 L, [place] % (Auto) 6.9, Eos % (Auto) 0.9, Baso % (Auto) 0.5, Absolute Neuts (auto) 4.6, Absolute Lymphs (auto) 1.21, Nucleated RBC % 0 Assessment & Plan Assessment/Plan (1) ETOH abuse: (2) Alcohol withdrawal: PLAN: Plan The patient is a 33 y/o F w/ PMHx: Anxiety and Depression, Asthma, EtOH abuse, Hx Seizure potentially following Ritalin usage, Tobacco use, Chronic migraines who presents to the [facility] ED for readmission following AMA for inpatient alcohol detoxification. She is endorsing no symptoms of alcohol withdrawal right now. #1. Alcohol abuse with Acute Withdrawal with history of previous history of seizure following Ritalin usage, possibly low threshold: - Will admit to [facility] and restart her prior withdrawal regimen, routine labs obtained in the ED upon presentation and pending. - Initiate and continue on protocol with taper course of Phenobarbital, as needed gabapentin, Catapres, Bentyl, Vistaril, IV fluids, IV antiemetics, Tylenol as needed for pain. - Will consult Case management for assistance for transition to next level of rehabilitation care. - Maintain on CIWA protocol concurrently. #2. Chronic asthma: Per current list on a chronic regimen, will have PRN albuterol, as noted continue to encourage tobacco cessation. #3. Anxiety and depression: Per current list not on regimen, likely contributing greatly to alcohol abuse, would benefit from continued outpatient evaluation, counseling and potentially medication. #4. Chronic migraines: Per current list not on regimen, encourage continued outpatient follow-up with primary care as needed. #5. Tobacco Abuse: Encouraged cessation, inpatient consultation per RT, NR if desired. #6. DVT prophylaxis: Enoxaparin prophylaxis Charges/Coding Visit Charges Inpatient E&M: 47632 Init Hosp L2
[2023-12-07 18:14] LABS: ALB/GLOB Ratio 1.2 RATIO (0.9-2.4); AST(SGOT) 33 U/L (15-37); Alanine Aminotransfer ALT/SGPT 38 U/L (13-56); Albumin, Serum 3.8 g/dL (3.2-5.0); Alkaline Phosphatase 79 U/L (45-117); Anion Gap 5 (5-15); BUN 11 mg/dL (7-18); BUN/Creat Ratio 14.6 RATIO (10-20); Calcium,Total 8.6 mg/dL (8.5-10.1); Chloride 106 mmol/L (98-107); Creatinine, Serum 0.76 mg/dL (0.55-1.02); EST Glomerular Filtration Rate 93 mL/min (>60); Est Glom Filt Rate - Afr Amer 112 mL/min (>60); Estimated Creatinine Clearance 111.74 ml/min; Globulin 3.2 g/dL (2.2-4.2); Glucose 82 mg/dL (74-106); Potassium 4.2 mmol/L (3.5-5.1); Sodium Level 138 mmol/L (136-145)
[2023-12-07 19:18] VITALS: BP 130/69; PULSE 89; RESP 20; TEMP 37; O2SAT 100
[2023-12-07 19:29] LABS: Internal QC Validated? YES +Cl - CLEAR BKGD; Pregnancy, Serum, hCG Quali. NEGATIVE Negative
[2023-12-07 19:42] VITALS: BMI 33.7
[2023-12-07 19:50] VITALS: BP 127/88; PULSE 96; RESP 18; TEMP 36.6; O2SAT 98
[2023-12-07] MEDS: Phenobarbital 32.4 MG Tablet 97.2000000000000028 MG PO ×2 (20:10→23:56)
[2023-12-07] MEDS: hydrOXYzine PAM 25 MG Capsule 50 MG PO (20:10)
[2023-12-07] MEDS: traZODone 100 MG Tablet PO (20:11)
[2023-12-07 23:55] VITALS: BP 116/75; PULSE 90; RESP 14; TEMP 36.5; O2SAT 98
[2023-12-07] MEDS: Dicyclomine 10 MG Capsule 20 MG PO (23:56)
[2023-12-07] MEDS: Gabapentin 300 MG Capsule PO (23:56)
[2023-12-07 23:57] LABS: Amphetamine Urine VISTA NEGATIVE (<1000 ng/mL); Barbiturate Urine VISTA POSITIVE (< 200 ng/mL); Benzodiazepine Urine VISTA NEGATIVE (< 200 ng/mL); Cocaine Urine VISTA NEGATIVE (< 300 ng/mL); Ecstacy Urine VISTA NEGATIVE (< 500 ng/mL); Methadone Urine VISTA NEGATIVE (< 300 ng/mL); PCP Urine VISTA NEGATIVE (< 25 ng/mL); THC Urine VISTA NEGATIVE (< 50 ng/mL); Vista UDS pH Range 6
[2023-12-08 04:26] VITALS: BP 100/66; PULSE 71; RESP 14; TEMP 36.5; O2SAT 97
[2023-12-08] MEDS: Phenobarbital 32.4 MG Tablet 97.2000000000000028 MG PO ×2 (04:29→08:15)
[2023-12-08] MEDS: hydrOXYzine PAM 25 MG Capsule 50 MG PO ×2 (04:30→08:16)
[2023-12-08 06:48] LABS: Basophil# 0.03 X10^3/uL; Basophil% 0.6 % (0-1); Eosinophil# 0.09 X10^3/uL; Eosinophils% 1.7 % (0-5); Hematocrit 38.3 % (37-47); Hemoglobin 12.6 g/dL (12.0-15.0); Lymphocyte % 30.7 % (19-41); Mean Corp Hgb Conc 32.9 g/dL (32-36); Mean Corpuscular Hgb 30.1 pg (27.0-32.0); Mean Corpuscular Volume 91.4 fL (81-99); Mean Platelet Vol. 9.9 fl (6.2-12.0); Monocyte# 0.44 X10^3/uL; Monocyte% 8.4 % (0-10); NRBC Flagged by Analyzer 0 % (0-5); Neutrophil # 3.03 X10^3/uL (2.7-7.7); Neutrophil % 58.2 % (47-70); Platelet Count 227 K/mm3 (150-450); RBC Distribution Width CV 13.3 % (11.6-14.6); Red Blood Count 4.19 M/mm3 (4.2-5.4); White Blood Count 5.2 K/mm3 (4.4-11.0)
[2023-12-08 06:56] LABS: Prothrombin Time (Protime)PT. 12.6 SECONDS (11.7-14.9)
[2023-12-08] MEDS: Folic Acid 1 MG Tablet PO (08:15)
[2023-12-08] MEDS: Enoxaparin 40 MG/0.4 ML Syringe SC (08:15)
[2023-12-08] MEDS: Thiamine Hydrochloride 100 MG Tablet PO (08:15)
[2023-12-08] MEDS: Gabapentin 300 MG Capsule PO (08:15)
[2023-12-08 08:40] LABS: ALB/GLOB Ratio 1.1 RATIO (0.9-2.4); AST(SGOT) 35 U/L (15-37); Alanine Aminotransfer ALT/SGPT 41 U/L (13-56); Albumin, Serum 3.3 g/dL (3.2-5.0); Alkaline Phosphatase 74 U/L (45-117); Anion Gap 5 (5-15); BUN 11 mg/dL (7-18); BUN/Creat Ratio 16.3 RATIO (10-20); Bilirubin, Direct 0.06 mg/dL (0.00-0.30); Calcium,Total 8.3 mg/dL (8.5-10.1); Chloride 109 mmol/L (98-107); Creatinine, Serum 0.68 mg/dL (0.55-1.02); EST Glomerular Filtration Rate 105 mL/min (>60); Est Glom Filt Rate - Afr Amer 127 mL/min (>60); Estimated Creatinine Clearance 124.89 ml/min; Globulin 2.9 g/dL (2.2-4.2); Glucose 111 mg/dL (74-106); Magnesium 2.2 mg/dL (1.6-2.6); Phosphorus 3.4 mg/dL (2.5-4.9); Potassium 3.7 mmol/L (3.5-5.1); Protein, Total 6.2 g/dL (6.4-8.2); Sodium Level 139 mmol/L (136-145); Thyroid Stim Hormone (TSH) 3.08 uIU/mL (0.358-3.74)
--- NOTE | 2023-12-08 08:43 | PN.HOSP_ITS ---
Reason for Visit Reason for Visit: Diagnoses Alcohol abuse, uncomplicated (12/07/23) Alcohol use, unspecified with withdrawal, unspecified (12/07/23) Objective Data Objective Data Vital Signs: Vital Signs Temp Pulse Resp BP Pulse Ox O2 Del Method 97.7 F L 71 14 100/66 97 Room Air 12/08/23 04:26 12/08/23 04:26 12/08/23 04:26 12/08/23 04:26 12/08/23 04:26 12/08/23 04:26 Oxygen Delivery Method Room Air Weight: 196 lb 11.2 oz Body Mass Index (BMI) 33.7 Intake & Output: Intake and Output for Last 24 Hours 12/06/23 12/07/23 12/09/23 23:59 23:59 00:59 Intake Total 872 / 872 Balance 872 / 872 Lab / Micro Data 12/08/23 06:11 12/08/23 06:11 Labs: Laboratory Results - last 24 hr 12/07/23 16:45: Urine Opiates Screen NEGATIVE, Urine Methadone Screen NEGATIVE, Ur Barbiturates Screen POSITIVE H, Ur Phencyclidine Scrn NEGATIVE, Ur Amphetamines Screen NEGATIVE, MDMA (Ecstasy) Screen NEGATIVE, U Benzodiazepines Scrn NEGATIVE, Urine Cocaine Screen NEGATIVE, U Cannabinoids Screen NEGATIVE, Ur Drug Screen Comment 12/07/23 17:35: WBC 6.4, RBC 4.44, Hgb 13.2, Hct 40.0, MCV 90.1, MCH 29.7, MCHC 33.0, RDW Std Deviation 43.7, RDW Coeff of Eulogio 13.3, Plt Count 239, MPV 10.0, Immature Gran % (Auto) 0.300, Neut % (Auto) 72.5 H, Lymph % (Auto) 18.9 L, [place] % (Auto) 6.9, Eos % (Auto) 0.9, Baso % (Auto) 0.5, Absolute Neuts (auto) 4.6, Absolute Lymphs (auto) 1.21, Nucleated RBC % 0, Sodium 138, Potassium 4.2, Chloride 106, Carbon Dioxide 27.0, Anion Gap 5, BUN 11, Creatinine 0.76, Estim Creat Clear Calc 111.74, Est GFR (MDRD) Af Amer 112, Est GFR (MDRD) Non-Af 93, BUN/Creatinine Ratio 14.6, Glucose 82, Calcium 8.6, Total Bilirubin 0.30, AST 33, ALT 38, Alkaline Phosphatase 79, Total Protein 7.0, Albumin 3.8, Globulin 3.2, Albumin/Globulin Ratio 1.2, Ethyl Alcohol 7.0 12/07/23 19:12: Serum , Qual NEGATIVE 12/08/23 06:11: WBC 5.2, RBC 4.19 L, Hgb 12.6, Hct 38.3, MCV 91.4, MCH 30.1, MCHC 32.9, RDW Std Deviation 45.0 H, RDW Coeff of Eulogio 13.3, Plt Count 227, MPV 9.9, Immature Gran % (Auto) 0.400, Neut % (Auto) 58.2, Lymph % (Auto) 30.7, [place] % (Auto) 8.4, Eos % (Auto) 1.7, Baso % (Auto) 0.6, Absolute Neuts (auto) 3.0, Absolute Lymphs (auto) 1.60, Nucleated RBC % 0, PT 12.6, INR 1.0, Sodium 139, Potassium 3.7, Chloride 109 H, Carbon Dioxide 25.0, Anion Gap 5, BUN 11, Creatinine 0.68, Estim Creat Clear Calc 124.89, Est GFR (MDRD) Af Amer 127, Est GFR (MDRD) Non-Af 105, BUN/Creatinine Ratio 16.3, Glucose 111 H, Calcium 8.3 L, Phosphorus 3.4, Magnesium 2.2, Total Bilirubin 0.20, Direct Bilirubin 0.06, AST 35, ALT 41, Alkaline Phosphatase 74, Total Protein 6.2 L, Albumin 3.3, Globulin 2.9, Albumin/Globulin Ratio 1.1, TSH 3.08 Physical Exam Narrative Seen and examined. Patient admitted for alcohol detox. She states she drinks 1 bottle of from every day. She also noticed increase in the abdominal swelling/girth. Mild anxiety, tremors but denies seizure or hallucination. Denies opioid use but smokes cigarettes Physical exam General: Alert, Oriented x3, Cooperative HEENT: Atraumatic, PERRLA, EOMI, Normocephalic Oral: No Gingival or Mucosal Lesions/ Ulcerations Neck: Supple, No JVD, Negative Carotid Bruits Chest wall/Lungs: Air entry diminished in bilateral lung bases. No crepitation/rhonchi Cardiovascular: Regular rate, Regular Rhythm, Normal S1, Normal S2, No M/G/R Abdomen: Bowel Sounds Present, Soft, tenderness present on the RUQ and LUQ. LUQ so tender but could not palpate insulin. Shifting dullness positive for possible mild ascites. Could not palpate liver or spleen due to tenderness. No rigidity : No dysuria. No renal angle tenderness. No suprapubic tenderness. Extremities: No edema, Capillary Refill Less than 3 Seconds Skin: No rashes, No breakdown Musculoskeletal: No Tenderness to Palpation of Joints or Extremities Neurological: Cranial nerves II-XII grossly intact, DTR 2+/4. No acute focal neurological deficit. Psych/Mental Status: Normal Affect, Appropriate. Assessment & Plan Assessment/Plan (1) ETOH abuse: (2) Alcohol withdrawal: PLAN: Plan The patient is a 33 y/o F w/ PMHx: Anxiety and Depression, Asthma, EtOH abuse, Hx Seizure potentially following Ritalin usage, Tobacco use, Chronic migraines who presents to the [facility] ED for readmission following AMA for inpatient alcohol detoxification. She is endorsing no symptoms of alcohol withdrawal right now. #1. Acute alcohol withdrawal syndrome with history of chronic alcohol use dependence and relapse: Patient has history of seizure following Ritalin use when she was 10 years old for PTSD. Denies alcohol related seizure. Patient is being admitted to MedSurg floor. Patient on phenobarbital based order set along with other adjunctive medications gabapentin, Bentyl, Vistaril, clonidine, Klonopin as needed for alcohol withdrawal symptom control. Patient is on beryl ine and folate acid. [facility] monitor. food general manager consulted. #2. RUQ and LUQ tenderness: Liver chemistry in normal range but patient had elevated AST 41 in November 2023. On exam suspected mild ascites with fluid thrill. Abdominal ultrasound ordered. Liver chemistry shows normal ALT AST and albumin 3. Chronic asthma: Per current list on a chronic regimen, PRN albuterol, as noted continue to encourage tobacco cessation. On nicotine patch. #3. Anxiety and depression: Outpatient evaluation. #4. Chronic migraines: Per current list not on regimen, encourage continued outpatient follow-up with primary care as needed. #5. Tobacco Abuse: Encouraged cessation, inpatient consultation per RT, NR if desired. #6. DVT prophylaxis: Enoxaparin prophylaxis Charges/Coding Visit Charges Inpatient E&M: 48118 Subs Hosp L2
[2023-12-08 10:34] LABS: Magnesium 2.2 mg/dL (1.6-2.6); Phosphorus 3.5 mg/dL (2.5-4.9)
--- NOTE | 2023-12-08 13:27 | NURSING ---
This Rn went in to give scheduled Phenobarbitol, Nicotine patch, protonix, prn Vistaril, and IVF of LR. Pt was sleeping. When she was awakened by this Rn pt asked when she would be leaving. This RN stated Not today . Pt started to become agitated and asked when then . This RN informed Constanza that her 3 days would start over since she left and came back. Constanza began yelling very loudly at this time. Oh my god are you serious . I have to be here a week . Why do I have to start over . This RN explained reason and pt then stated she didnt drink but then said I took a sip and threw the rest away . Pt became more agitated knowing that our 180 detox coordinator was not back until tomorrow, SaturdayDecember 08. I want a phone and I want to talk to the 180 hotline . This Rn reinforced to pt she could not have a phone per rules and signed contract. That is so stupid that I cant make a phone call and you wont even let me have sweat pants but Im aloud to have my necklace and earrings, which is also just fuckin stupid . This RN offered pt her medications and pt stated I'm sick of everyone throwing pills at me, I don't want nothing . Pt then warned RN to leave her alone for awhile. This RN texted Dr. Yepez to make him aware that pt refused her meds.
--- NOTE | 2023-12-08 16:54 | NURSING ---
Constanza comes out to the nurses station and is upset that she had her call light on for over an hour . Pt wanted her IV out so she could leave AMA and wanted her vaps (two of them found on her at two different times) given back to her. This RN made pt go back to the room and took out her iv. No wonder you guys look the way you do because all do you is sit around . Pt had already broken into her bin and put on her clothes. Pt refused to sign AMA paper before heading toward elevator. Pt also stated to this nurse that when she left AMA the first time she did not have anything to drink and if you think I'm lying check my alochol level . This RN did not say anything and just let pt leave. Brodie, slot floor supervisor aware as well as Dr. Yepez.
--- NOTE | 2023-12-08 18:40 | DS.PCM_ITS ---
Providers Date of Admission: 12/07/23 Date of Discharge: 12/08/23 Primary Care Physician: Dr. Nadeem Nesbitt MD Reason For Visit: DETOXIFICATION Diagnosis Discharge Diagnosis (1) ETOH abuse: Status: Acute Code(s): F10.10 - Alcohol abuse, uncomplicated (2) Alcohol withdrawal: Status: Acute Code(s): F10.939 - Alcohol use, unspecified with withdrawal, unspecified Plan The patient is a 33 y/o F w/ PMHx: Anxiety and Depression, Asthma, EtOH abuse, Hx Seizure potentially following Ritalin usage, Tobacco use, Chronic migraines who presents to the [facility] ED for readmission following AMA for inpatient alcohol detoxification. She is endorsing no symptoms of alcohol withdrawal right now. #1. Acute alcohol withdrawal syndrome with history of chronic alcohol use dependence and relapse: Patient has history of seizure following Ritalin use when she was 10 years old for PTSD. Denies alcohol related seizure. Patient is being admitted to [facility] floor. Patient on phenobarbital based order set along with other adjunctive medications gabapentin, Bentyl, Vistaril, clonidine, Klonopin as needed for alcohol withdrawal symptom control. Patient is on thiamine and folate acid. CIWA monitor. assistant banquet manager consulted. Patient signed AMA about 5 PM on 12/18/2023. Risk, complications of acute alcohol withdrawal explained patient astute but states her edema. #2. RUQ and LUQ tenderness: Liver chemistry in normal range but patient had elevated AST 41 in November 2023. On exam suspected mild ascites with fluid thrill. Abdominal ultrasound ordered. Liver chemistry shows normal ALT AST and albumin Liver ultrasound was ordered for Saturday but she signed AMA before that 3. Chronic asthma: Per current list on a chronic regimen, PRN albuterol, as noted continue to encourage tobacco cessation. On nicotine patch. #3. Anxiety and depression: Outpatient evaluation. #4. Chronic migraines: Per current list not on regimen, encourage continued outpatient follow-up with primary care as needed. #5. Tobacco Abuse: Encouraged cessation, inpatient consultation per RT, NR if desired. #6. DVT prophylaxis: Enoxaparin prophylaxis Patient signed AMA. Follow-up PCP Medications at Discharge Home Medications NK 12/04/23 Physical Exam Narrative Please see exam finding on the progress note. Weight / BMI Weight Weight: 196 lb 11.2 oz Body Mass Index (BMI) 33.7 ABG / Lab / Microbiology Data 12/08/23 06:11 12/08/23 06:11 Laboratory: Laboratory Results - last 24 hr 12/08/23 06:11: Phosphorus 3.5, Magnesium 2.2 Meaningful Use Info Meaningful Use Diagnoses (Choose all that apply): None applicable Discharge Plan Admission Admit Date/Time: 12/07/23 18:06 Attending Provider: David Yepez Primary Care Provider: Nadeem Nesbitt Consulting Providers: Layla Ziegler Discharge Orders/Prescriptions Prescriptions: No Action NK Referrals / Follow Up: Nadeem Nesbitt MD [Primary Care Provider] - Disposition Disposition (needs filled in before D/C Order can be placed): Against Medical Advice
== END 2023-12-08 16:45 | disposition left against medical advice (07) ==
LOC: ED 18:01 → MS3 12-08 08:23
PROVIDERS: Admitting Provider Internal Medicine; Emergency Provider Emergency Medicine; PCP Family Medicine; Visit Provider Internal Medicine
DX: F10.239 Alcohol dependence with withdrawal, unspecified (principal); J45.909 Unspecified asthma, uncomplicated; F17.290 Nicotine dependence, other tobacco product, uncomplicated
CPT/HCPCS: 36415; 80053; 80307; 80320; 82248; 83735; 84100; 84443; 84703; 85025; 85610; 96372; 96374; 99221; 99283; 99406; J7030; A4216; G0378; G0480